=== PATIENT | female | born 1950 | race Caucasian/White ===

== ENCOUNTER → 2018-01-07 | Outpatient (CLI) | payer MEDICARE, BC ==
--- NOTE | 2018-01-08 10:16 | MM ---
Reason for exam: screening (asymptomatic). Last mammogram was performed 2 years and 5 months ago. History: Patient is postmenopausal. Family history of breast cancer in 2 maternal aunts. Took estrogen for 1 year 8 months. Physical Findings: A clinical breast exam by your physician is recommended on an annual basis and results should be correlated with mammographic findings. MG 3D Screening Mammo W/Cad Bilateral CC and MLO view(s) were taken. Prior study comparison: July 27, 2015, bilateral MG screening mammo w CAD. June 03, 2014, bilateral MG screening mammo w CAD. There are scattered fibroglandular densities. No significant changes when compared with prior studies. ASSESSMENT: Negative, BI-RAD 1 RECOMMENDATION: Routine screening mammogram of both breasts in 1 year.
== END | disposition home or self-care (01) ==
LOC: RADMAMWWP 07:36
PROVIDERS: ATTEND Family Medicine
DX: Z12.31 Encounter for screening mammogram for malignant neoplasm of breast (principal)
CPT/HCPCS: 77063; 77067

== ENCOUNTER → 2018-04-17 | Outpatient (CLI) | payer MEDICARE, BC ==
--- NOTE | 2018-04-17 09:32 | MR ---
EXAMINATION TYPE: MR shoulder LT wo con DATE OF EXAM: 04/17/2018 COMPARISON: None HISTORY: 67-year-old female Left shoulder pain TECHNIQUE: Multiplanar, multisequence imaging of the left shoulder is performed without contrast. FINDINGS: There is linear abnormal signal within the intracapsular portion of the long head biceps tendon. Mild tenosynovial fluid along the bicipital groove. Heterogeneous signal of the subscapularis tendon which remains intact. Moderate degenerative joint space narrowing and marginal spurring at the acromioclavicular joint. Inf erior spurring contacts the underlying myotendinous junction of the supraspinatus. There is a bursal sided tear of the far anterior supraspinatus tendon measuring 6 x 6 mm at the footp rint. Additional heterogeneous signal of the supraspinatus tendon. No full-thickness extension seen. There is additional articular sided tear at the footprint of the anterior infraspinatus tendon measur ing 7 x 8 mm. This tear closely approaches the bursal surface, coronal series 301 image 16. No defini te full-thickness extension. Trace fluid within the subacromial/subdeltoid bursal. No atrophy of the rotator cuff musculature. There is mild irregular cartilage loss along the glenoid articular surface. There is a small joint ef fusion. Fluid signal extends into the superior labrum. No paralabral cyst. No Hill-Sachs deformity or os acromiale. No suspicious bone marrow replacement. IMPRESSION: 1. Diffuse rotator cuff tendinosis with a small 6 x 6 mm bursal sided tear of the far anterior supras pinatus tendon at the footprint. 2. Additional 7 x 8 mm articular sided tear at the footprint of the anterior infraspinatus tendon. Th is is a deep tear that closely approaches the bursal surface. No definite full-thickness extension. 3. Focal tendinosis versus interstitial tear within the intracapsular portion of the long head biceps tendon. 4. Moderate AC joint OA with slight impingement onto the underlying cuff. Mild subacromial/subdeltoid bursitis. 5. Small SLAP tear and mild degenerative changes in the glenohumeral joint.
== END | disposition home or self-care (01) ==
LOC: RADMRIMAIN 05:59
PROVIDERS: ATTEND Orthopaedic Surgery
DX: M19.012 Primary osteoarthritis, left shoulder (principal); M75.102 Unspecified rotator cuff tear or rupture of left shoulder, not specified as traumatic; S46.912A Strain of unspecified muscle, fascia and tendon at shoulder and upper arm level, left arm, initial encounter; M67.814 Other specified disorders of tendon, left shoulder

== ENCOUNTER 2018-05-29 07:32 | Day surgery (SDC) | payer MEDICARE, BC ==
[2018-05-22 14:09] VITALS: BMI 30.2
--- NOTE | 2018-05-28 13:12 | HP ---
HISTORY AND PHYSICAL Surgery is 05/29/2018. Kiana Lyn is a 67-year-old patient seen with progressive left shoulder pain. Treatment options were discussed with her. She elected to proceed with arthroscopy. Consent regarding the procedure was obtained, clearance was provided by Dr. Sampson's office. PAST MEDICAL HISTORY: Past medical history is asthma. PAST SURGICAL HISTORY: Past surgical history is left knee arthroscopy, left total knee arthroplasty. DAILY MEDICATIONS: 1. Gabapentin. 2. Vitamins. ALLERGIES: Allergies are PENICILLIN and CODEINE. SOCIAL HISTORY: Patient denies current tobacco use. PHYSICAL EXAMINATION: Physical evaluation left shoulder: Flexion is 90 degrees, abduction 60 degrees, external rotation is 30 degrees with weakness. Tenderness along the anterior acromion rotator cuff insertion site. Impingement positive 80 degrees. Drop-arm sign positive. Distal neurovascular exam intact. Radiographs which were obtained of the left shoulder revealed cystic changes of the tuberosity. An MRI left shoulder revealed rotator cuff tear, partial biceps tendon tear, acromioclavicular osteoarthritis and labral tear. IMPRESSION: Left shoulder impingement with rotator cuff tear, labral tear, and acromioclavicular joint osteoarthritis. PLAN: Left shoulder arthroscopy with subacromial decompression, probable arthroscopic rotator cuff repair, probable Kavitha procedure and debridement. MMODL / IJN: [id number] /
[~2018-05-29 07:32] MED LIST: HYDROmorphone 1 MG/ML 1 ML SYRINGE IVP PRN; LACTATED RINGERS 1,000 ML IV SCH; MORPHINE SULFATE 2 MG/ML SYRINGE IV PRN; ONDANSETRON 4 MG/2 ML VIAL IVP PRN; ceFAZolin IN SWFI 2 GM/20 ML SYRINGE IVP ONE
[2018-05-29] MEDS ORDERED: LIDOCAINE 1% 20 ML VIAL (10MG/ML) FOR IV START INTRADERMA ONE (08:15)
[2018-05-29] MEDS ORDERED: MIDAZOLAM 2 MG/2 ML VIAL ONE ×2 (08:16→09:18)
[2018-05-29] MEDS ORDERED: DEXAMETHASONE SOD PHOS (MDV) 100 MG/10 ML VIAL IV ONE (08:18)
[2018-05-29] MEDS ORDERED: MIDAZOLAM 2 MG/2 ML VIAL IV ONE (08:36)
--- NOTE | 2018-05-29 08:59 | P.ONQ ---
Anesthesiology Proc Note - PNB - Peripheral Nerve Block Performed Left Interscalene Single Time Out Performed: Yes Procedure Start Time: 08:37 Procedure Stop Time: :44 Indication: Acute Post-Operative Pain, Requested by physician (Dr Frost) Sedation Type: Sedate with meaningful contact maintained Preparation: Sterile Prep Position: Supine Catheter: None Needle Types: Touhy Needle Size: 50mm (2") Needle Gauge: 20 Technique: Ultrasound (Image saved) Injectate: 0.5% Ropivacaine (see comment for volume) (30 mls) Blood Aspirated: No Pain Paresthesia on Injection Noted: No Resistance on Injection: Normal Events: Uneventful and Well Tolerated
[2018-05-29] MEDS ORDERED: GLYCOPYRROLATE 0.2 MG/ML 2 ML VIAL ONE (09:18)
[2018-05-29] MEDS ORDERED: LIDOCAINE 1% INJ 10MG/ML (20 ML MDV) ONE (09:18)
[2018-05-29] MEDS ORDERED: ROPIVACAINE 5 MG/ML 30 ML VIAL ONE (09:18)
[2018-05-29] MEDS ORDERED: ROCURONIUM BROMIDE 10 MG/ML 10 ML VIAL IV ONE (09:18)
[2018-05-29] MEDS ORDERED: PROPOFOL 10 MG/ML 20 ML VIAL IV ONE (09:18)
[2018-05-29] MEDS ORDERED: ePHEDrine SULFATE/0.9% NACL/PF 50 MG/5 ML SYRINGE IV ONE (09:18)
[2018-05-29] MEDS ORDERED: fentaNYL (PF) 50 MCG/ML 2 ML AMP ONE (09:18)
[2018-05-29] MEDS ORDERED: NEOSTIGMINE 1 MG/ML 10 ML VIAL ONE (09:18)
[2018-05-29] MEDS ORDERED: SODIUM CHLORIDE 0.9% 100 ML with CLINDAMYCIN 600 MG IV ONE ×2 (09:25)
[2018-05-29] MEDS ORDERED: LACTATED RINGERS 1,000 ML IV ONE (10:14)
[2018-05-29] MEDS ORDERED: IV FLUID CONTINUATION 1,000 ML IV ONE (11:08)
--- NOTE | 2018-05-29 11:10 | P.OP ---
Date of Procedure: 05/29/18 Preoperative Diagnosis: Left shoulder impingement Postoperative Diagnosis: 1. Left shoulder rotator cuff tear 2. Left shoulder impingement 3. Left shoulder acromioclavicular joint osteoarthritis 4. Left shoulder partial long head biceps tendon tear 5. Left shoulder labral tear Procedure(s) Performed: 1. Left shoulder arthroscopic rotator cuff repair 2. Left shoulder arthroscopic subacromial decompression 3. Left shoulder arthroscopic Kavitha procedure 4. Left shoulder arthroscopic biceps tenotomy 5. Left shoulder arthroscopic debridement labral tear Implants: 2Arthrex 4.75 swivel lock anchors 2Arthrex 5.5 swivel lock anchors Anesthesia: GETA, regional (Interscalene block) Surgeon: Jasson Frost Information Systems Security Developer #1: Boaz Pittman Estimated Blood Loss (ml): 8 Pathology: none sent Condition: stable Disposition: PACU Indications for Procedure: 67-year-old patient seen with progressive left shoulder pain. After treatment options were discussed, she elected to proceed with arthroscopy. Operative Findings: see description of procedure Description of Procedure: Patient underwent an interscalene block by department of anesthesia for postoperative pain management. The patient was then taken to the operative suite. The patient underwent a general anesthetic by the department of anesthesia. The patient was placed into a lateral position and secured. There was appropriate padding of the bony prominence. Left shoulder was then prepped and draped in normal sterile orthopedic fashion. We placed the extremity in 10 pounds of longitudinal traction. A posterior incision was now made for a posterior working portal site. The trocar and cannula were inserted into the glenohumeral joint. Arthroscopy was initiated. Spinal needle was now inserted anteriorly, to ascertain the anterior working portal site. An incision was now made in that area, a trocar was inserted followed by a probe. It was partial tearing long head biceps tendon. There was hyperemia long head biceps tendon. There was a superior and anterior labral tear present. There were grade 1/2 chondromalacia changes of the superior portion glenoid fossa with no osteochondral tears present. The remaining labrum was quite diminutive but no tears were present. I couldn't visualize a full-thickness rotator cuff tear from glenohumeral side. I performed an arthroscopic biceps tenotomy. I debrided that labral tear getting on a stable tissue. The residual diminutive labrum remained stable. Instruments now removed from the glenohumeral joint. Utilizing the posterior working portal site, the trocar and cannula were inserted into the subacromial space. Arthroscopy initiated. I made an incision 2 fingerbreadths lateral to the acromion. I introduced my trocar followed by my ArthroCare ablator. I now began ablating thick subacromial bursal tissue, which exposed the undersurface of the anterior acromion. There was diminished subacromial space. There was a very prominent anterior acromion. A motorized bur was introduced and a subacromial decompression was performed. I also excised some osteophytes off the inferior aspect of the distal clavicle. The AC joint was visualized and noted to be fairly arthritic. The motorized bur was introduced in the anterior portal site and a Kavitha procedure was performed without difficulty, decompressing the AC joint nicely. I turned my attention to the rotator cuff. There was a 2 cm rotator cuff tear. I debrided the margins getting down to stable tendon tissue. The defect now measured a little over 2.5 cm with good stable tissue. I introduced my motorized bur and abraded the footprint area, getting some petechial bleeding. I now made an accessory portal site off the lateral aspect of the acromion. I punched 2 holes medial for medial row fixation with the assistance of Trip GUERRERO carefully tapping the punch with a mallet as I held the punch and the camera. I now introduced both anchors into the pre-punched holes and Trip GUERRERO tapped them with the mallet as I held anchors and the camera. Trip GUERRERO now screwed the anchors in place a while I held the anchor guide and camera. All 8 limbs of suture were now passed through good bites of rotator cuff tendon. I now punched 2 holes for lateral row fixation again I held the punch and camera while Trip GUERRERO used a mallet to tap in the punch. We now passed sutures through both anchors and individually I introduced the anchors into the pre- punch holes I held the anchor guide in position with one hand holding the camera with the other hand while Trip GUERRERO tensioned the sutures and screwed in the anchors one at a time. All residual suture limbs were now clipped. We had good compression of the tendon along the entire footprint. I injected 1 mL Renue intra-articular Instruments now removed from the portal sites. All portal sites were approximated with nylon suture. Sterile dressings were applied followed by a shoulder immobilizer. Boaz GUERRERO assisted in this complex case. The patient was awakened, transferred to a bed, and taken to recovery in stable condition.
[2018-05-29 11:26] VITALS: TEMP 96.8
[2018-05-29 12:06] VITALS: BP 108/70; PULSE 78; RESP 18
== END 2018-05-29 13:02 | disposition home or self-care (01) ==
LOC: OR 07:32
PROVIDERS: ATTEND Orthopaedic Surgery
DX: M75.102 Unspecified rotator cuff tear or rupture of left shoulder, not specified as traumatic (principal); M75.42 Impingement syndrome of left shoulder; M19.012 Primary osteoarthritis, left shoulder; S46.112A Strain of muscle, fascia and tendon of long head of biceps, left arm, initial encounter; S43.432A Superior glenoid labrum lesion of left shoulder, initial encounter; X58.XXXA Exposure to other specified factors, initial encounter; M94.212 Chondromalacia, left shoulder; M25.712 Osteophyte, left shoulder; J45.909 Unspecified asthma, uncomplicated; Z79.899 Other long term (current) drug therapy; Z87.891 Personal history of nicotine dependence; Z93.2 Ileostomy status; Z79.82 Long term (current) use of aspirin; Z79.891 Long term (current) use of opiate analgesic; Z88.5 Allergy status to narcotic agent; Z88.0 Allergy status to penicillin
CPT/HCPCS: 29826; 29827; 29824; 64415; C1713 ×2; C1894; C1765; J2250; J2710; J2405; J2001; J3010; J1100; J2795; J2704

== ENCOUNTER → 2018-10-02 | Outpatient (CLI) | payer MEDICARE, BC ==
--- NOTE | 2018-10-02 09:00 | MR ---
EXAMINATION TYPE: MR shoulder LT wo con DATE OF EXAM: 10/02/2018 COMPARISON: MRI of the left shoulder dated 04/17/2018 and outside left shoulder radiographs dated 10/01. HISTORY: Left shoulder pain. Prior surgery in May 2018. TECHNIQUE: Multiplanar, multisequence imaging of the left shoulder is performed without contrast. FINDINGS: Rotator Cuff: There has been interval rotator cuff surgery with postsurgical changes and 4 humeral he ad anchors in place. There is a new 4 mm intrasubstance tear of the insertional fibers of the suprasp inatus there is alteration of the intrinsic signal of the insertional fibers representing tendinopath y. Bursal surface fluid is seen within the subacromial/subdeltoid bursa. This is overall small in vol ume. No discrete tear is seen of the infraspinatus, teres minor nor subscapularis. There does remain heter ogenous signal of the insertional fibers of the subscapularis as seen on the prior. Acromioclavicular Joint: There is moderate acromioclavicular arthropathy with capsular hypertrophy an d small marginal osteophytes. No internal impingement of the supraspinatus is seen. Glenohumeral Joint: Joint space is maintained. Labrum: There is global labral degeneration without discrete displaced tear on this nonarthrographic examination. Biceps Tendon: There is a new split tear of the intra-articular and extra-articular portion of the bi ceps tendon with attenuation of the intra-articular portion of the long head of the biceps. The bicep s tendon remains within placed in the bicipital groove. Bone marrow signal: No focal abnormal marrow signal is appreciated. IMPRESSION: 1. Postsurgical change after rotator cuff repair. There is a 4 mm intrasubstance tear of the insertio nal fibers of the supraspinatus and mild supraspinatus and infraspinatus tendinopathy. 2. New split tear of the intra and extra articular portion of the biceps tendon without displacement. 3. Small amount of fluid in the subcoracoid/subdeltoid bursa that may relate to bursitis, overall thi s is increased from the prior although remains small volume. 4. Global labral degeneration, redemonstration of moderate acromioclavicular arthropathy without inte rnal impingement, and mild chondrosis.
== END | disposition home or self-care (01) ==
LOC: RADMRIMAIN 06:09
PROVIDERS: ATTEND Orthopaedic Surgery
DX: M75.102 Unspecified rotator cuff tear or rupture of left shoulder, not specified as traumatic (principal); M19.012 Primary osteoarthritis, left shoulder; S46.212A Strain of muscle, fascia and tendon of other parts of biceps, left arm, initial encounter; Z98.890 Other specified postprocedural states

== ENCOUNTER → 2019-02-06 | Outpatient (CLI) | payer MEDICARE, BC ==
--- NOTE | 2019-02-11 08:40 | MM ---
Reason for exam: screening (asymptomatic). Last mammogram was performed 1 year and 1 month ago. History: Patient is postmenopausal. Family history of breast cancer in 2 maternal aunts. Took estrogen for 1 year 8 months. Physical Findings: A clinical breast exam by your physician is recommended on an annual basis and results should be correlated with mammographic findings. MG Screening Mammo w CAD Bilateral CC and MLO view(s) were taken. Prior study comparison: January 07, 2018, bilateral MG 3d screening mammo w/cad. July 27, 2015, bilateral MG screening mammo w CAD. There are scattered fibroglandular densities. No significant changes when compared with prior studies. ASSESSMENT: Benign, BI-RAD 2 RECOMMENDATION: Routine screening mammogram of both breasts in 1 year.
== END | disposition home or self-care (01) ==
LOC: RADMAMWWP 09:57
PROVIDERS: ATTEND Family Medicine
DX: Z12.31 Encounter for screening mammogram for malignant neoplasm of breast (principal)
CPT/HCPCS: 77067

== ENCOUNTER 2019-05-26 12:56 | Emergency (ER) | payer MEDICARE, BC ==
[2019-05-26] MEDS ORDERED: SODIUM CHLORIDE 0.9% 1,000 ML IV STA ×2 (13:49)
--- NOTE | 2019-05-26 13:51 | ED ---
SOB HPI - General Chief Complaint: Shortness of Breath Stated Complaint: crohns, poss bloodclot, near syncope Time Seen by Provider: 05/26/19 13:33 Source: patient, RN notes reviewed, old records reviewed Mode of arrival: ambulatory Limitations: no limitations - History of Present Illness Initial Comments: This is a 68-year-old female the ER for evaluation patient does say for evaluation regards to pain left-sided chest pain left-sided abdominal pain left- sided rib pain. Patient has recent syncopal episode 2 days ago. History of Crohn's disease. No recent travel history no sick contacts. Patient presented today for severe pain not feeling well pain extending all the way down the left abdominal area. MD Complaint: shortness of breath, cough -: days(s) Radiation: back, left arm Severity: moderate Severity scale (1-10): 6 Quality: aching, sharp Consistency: constant Improves With: nothing Worsens With: nothing Context: other (Recent syncopal event) Associated Symptoms: chest pain - Related Data Home Medications Medication Instructions Recorded Confirmed Aspirin [Adult Low Dose Aspirin EC] 81 mg PO HS 01/14/16 05/26/19 Ergocalciferol [Vitamin D2 50,000 unit PO SA 01/14/16 05/26/19 (DRISDOL)] Ondansetron Odt [Zofran ODT] 4 mg PO QID PRN 05/26/19 05/26/19 Allergies Allergy/AdvReac Type Severity Reaction Status Date / Time codeine Allergy Severe Swelling Verified 05/26/19 13:44 Penicillins Allergy Severe Swelling Verified 05/26/19 13:44 hydromorphone HCl AdvReac Hallucinati Verified 05/26/19 13:44 [From Dilaudid] ons Review of Systems ROS Statement: Those systems with pertinent positive or pertinent negative responses have been documented in the HPI. ROS Other: All systems not noted in ROS Statement are negative. Past Medical History Past Medical History: Asthma, COPD, Deep Vein Thrombosis (DVT), Pneumonia, Pulmonary Embolus (PE) Additional Past Medical History / Comment(s): CROHNS WITH OSTOMY FOR 18 YEARS- small area of raw skin around ostomy, hx DVT and PE after Ileosotomy surgery, hx migraines, hx ulcer, hx anemia, hx pneumonia multiple times, last 3 yrs ago. History of Any Multi-Drug Resistant Organisms: None Reported Past Surgical History: Appendectomy, Back Surgery, Hysterectomy, Orthopedic Surgery Additional Past Surgical History / Comment(s): Ileostomy surgery, neuroma removed from bilateral feet, left wrist surgery, sinus surgery, bilateral cataracts, 01-18-16 REVISION OF ILEOSTOMY. Past Anesthesia/Blood Transfusion Reactions: Motion Sickness Additional Past Anesthesia/Blood Transfusion Reaction / Comment(s): Difficulty waking up from anesthesia. Past Psychological History: No Psychological Hx Reported Smoking Status: Former smoker Past Alcohol Use History: Occasional Past Drug Use History: None Reported - Past Family History Mother Family Medical History: No Reported History Father Family Medical History: Diabetes Mellitus General Exam Limitations: no limitations General appearance: alert, in no apparent distress Head exam: Present: atraumatic, normocephalic, normal inspection Eye exam: Present: normal appearance, EOMI. Absent: scleral icterus, conjunctival injection, periorbital swelling ENT exam: Present: normal exam, mucous membranes moist Neck exam: Present: normal inspection. Absent: tenderness, meningismus, lymphadenopathy Respiratory exam: Present: normal lung sounds bilaterally. Absent: respiratory distress, wheezes, rales, rhonchi, stridor Cardiovascular Exam: Present: regular rate, normal rhythm, normal heart sounds. Absent: systolic murmur, diastolic murmur, rubs, gallop, clicks GI/Abdominal exam: Present: soft, normal bowel sounds. Absent: distended, tenderness, guarding, rebound, rigid Extremities exam: Present: normal inspection, full ROM, normal capillary refill. Absent: tenderness, pedal edema, joint swelling, calf tenderness Back exam: Present: normal inspection Neurological exam: Present: alert, oriented X3, CN II-XII intact Psychiatric exam: Present: normal affect, normal mood Skin exam: Present: warm, dry, intact, normal color. Absent: rash Course Vital Signs 05/26/19 05/26/19 12:58 15:52 Temperature 97.9 F Pulse Rate 80 82 Respiratory 20 16 Rate Blood Pressure 113/80 120/68 O2 Sat by Pulse 98 95 Oximetry - Reevaluation(s) Reevaluation #1: 05/26/19 16:36 Medical records reviewed Reevaluation #2: 05/26/19 16:36 Significant findings for patient's pain or syncope found here in the ER. Pain is well-controlled patient's in no distress vital signs normal and stable Medical Decision Making - Medical Decision Making 60 female the ER for evaluation patient presents today for evaluation regarding pain abdominal pain left flank pain left-sided rib pain and left lower quadrant abdominal pain, no acute cause for patient's pain. As well mild pancreatitis with no pain over epigastric area, patient does admit to recent syncope and fall but no traumatic injury from the fall and no cause of syncope found here in the ER. Patient be discharged - Lab Data Result diagrams: 05/26/19 14:07 05/26/19 14:07 Lab Results 05/26/19 05/26/19 05/26/19 Range/Units 14:07 14:07 14:07 WBC 9.2 (3.8-10.6) k/uL RBC 5.58 H (3.80-5.40) m/uL Hgb 17.1 H (11.4-16.0) gm/dL Hct 49.9 H (34.0-46.0) % MCV 89.4 (80.0-100.0) fL MCH 30.7 (25.0-35.0) pg MCHC 34.3 (31.0-37.0) g/dL RDW 12.8 (11.5-15.5) % Plt Count 304 (150-450) k/uL Neutrophils % 69 % Lymphocytes % 22 % Monocytes % 6 % Eosinophils % 1 % Basophils % 1 % Neutrophils # 6.3 (1.3-7.7) k/uL Lymphocytes # 2.0 (1.0-4.8) k/uL Monocytes # 0.6 (0-1.0) k/uL Eosinophils # 0.1 (0-0.7) k/uL Basophils # 0.1 (0-0.2) k/uL PT (9.0-12.0) sec INR (<1.2) APTT (22.0-30.0) sec D-Dimer (<0.60) mg/L FEU Sodium 137 (137-145) mmol/L Potassium 4.6 (3.5-5.1) mmol/L Chloride 107 (98-107) mmol/L Carbon Dioxide 15 L (22-30) mmol/L Anion Gap 15 mmol/L BUN 33 H (7-17) mg/dL Creatinine 1.35 H (0.52-1.04) mg/dL Est GFR (CKD-EPI)AfAm 47 (>60 ml/min/1.73 sqM) Est GFR (CKD-EPI)NonAf 41 (>60 ml/min/1.73 sqM) Glucose 97 (74-99) mg/dL Calcium 10.4 H (8.4-10.2) mg/dL Phosphorus 3.8 (2.5-4.5) mg/dL Magnesium 2.0 (1.6-2.3) mg/dL Total Bilirubin 1.2 (0.2-1.3) mg/dL AST 39 H (14-36) U/L ALT 25 (9-52) U/L Alkaline Phosphatase 104 (38-126) U/L Troponin I (0.000-0.034) ng/mL NT-Pro-B Natriuret Pep 51 pg/mL Total Protein 8.3 H (6.3-8.2) g/dL Albumin 5.0 (3.5-5.0) g/dL Lipase (23-300) U/L 05/26/19 05/26/19 05/26/19 Range/Units 14:07 14:07 14:07 WBC (3.8-10.6) k/uL RBC (3.80-5.40) m/uL Hgb (11.4-16.0) gm/dL Hct (34.0-46.0) % MCV (80.0-100.0) fL MCH (25.0-35.0) pg MCHC (31.0-37.0) g/dL RDW (11.5-15.5) % Plt Count (150-450) k/uL Neutrophils % % Lymphocytes % % Monocytes % % Eosinophils % % Basophils % % Neutrophils # (1.3-7.7) k/uL Lymphocytes # (1.0-4.8) k/uL Monocytes # (0-1.0) k/uL Eosinophils # (0-0.7) k/uL Basophils # (0-0.2) k/uL PT 9.9 (9.0-12.0) sec INR 0.9 (<1.2) APTT 27.4 (22.0-30.0) sec D-Dimer 0.66 H (<0.60) mg/L FEU Sodium (137-145) mmol/L Potassium (3.5-5.1) mmol/L Chloride (98-107) mmol/L Carbon Dioxide (22-30) mmol/L Anion Gap mmol/L BUN (7-17) mg/dL Creatinine (0.52-1.04) mg/dL Est GFR (CKD-EPI)AfAm (>60 ml/min/1.73 sqM) Est GFR (CKD-EPI)NonAf (>60 ml/min/1.73 sqM) Glucose (74-99) mg/dL Calcium (8.4-10.2) mg/dL Phosphorus (2.5-4.5) mg/dL Magnesium (1.6-2.3) mg/dL Total Bilirubin (0.2-1.3) mg/dL AST (14-36) U/L ALT (9-52) U/L Alkaline Phosphatase (38-126) U/L Troponin I <0.012 (0.000-0.034) ng/mL NT-Pro-B Natriuret Pep pg/mL Total Protein (6.3-8.2) g/dL Albumin (3.5-5.0) g/dL Lipase 362 H (23-300) U/L - EKG Data -: EKG Interpreted by Me (EKG shows sinus rhythm rate 95, WA 1:30, QRS 84, QTC 445) - Radiology Data Radiology results: report reviewed (CTA chest CT abdomen pelvis negative for acute disease), image reviewed Disposition Clinical Impression: Abdominal pain, Syncope, Rib pain on left side Disposition: ADMITTED IP TO THIS HOSP Condition: Fair Instructions (If sedation given, give patient instructions): Abdominal Pain (ED), Chest Pain (ED) Is patient prescribed a controlled substance at d/c from ED?: No Referrals: Beba Sampson DO [Primary Care Provider] - 1-2 days
[2019-05-26 14:23] LABS: Basophils # (A) 0.1 k/uL (0-0.2); Basophils % (A) 1 %; Eosinophils # (A) 0.1 k/uL (0-0.7); Eosinophils % (A) 1 %; HCT 49.9 % (34.0-46.0); HGB 17.1 gm/dL (11.4-16.0); Lymphocytes % (A) 22 %; MCH 30.7 pg (25.0-35.0); MCHC 34.3 g/dL (31.0-37.0); MCV 89.4 fL (80.0-100.0); Mean Platelet Volume 7.2; Monocytes # (A) 0.6 k/uL (0-1.0); Monocytes % (A) 6 %; Neutrophils # (A) 6.3 k/uL (1.3-7.7); Neutrophils % (A) 69 %; Platelet Count 304 k/uL (150-450); RBC 5.58 m/uL (3.80-5.40); RDW 12.8 % (11.5-15.5); WBC 9.2 k/uL (3.8-10.6)
[2019-05-26 14:35] LABS: Calcium 10.4 mg/dL (8.4-10.2); Phosphorus 3.8 mg/dL (2.5-4.5); Potassium 4.6 mmol/L (3.5-5.1); Total Bilirubin 1.2 mg/dL (0.2-1.3); Total Protein 8.3 g/dL (6.3-8.2)
[2019-05-26 14:39] LABS: INR 0.9 (<1.2); Partial Thromboplastin Time 27.4 sec (22.0-30.0); Prothrombin Time 9.9 sec (9.0-12.0)
[2019-05-26 14:49] LABS: D-Dimer 0.66 mg/L FEU (<0.60)
--- NOTE | 2019-05-26 15:25 | CT ---
EXAMINATION TYPE: CT angio chest DATE OF EXAM: 05/26/2019 COMPARISON: NONE HISTORY: Chest discomfort with shortness of breath CT DLP: 366.3 mGycm. Automated Exposure Control for Dose Reduction was Utilized. CONTRAST: CTA scan of the thorax is performed with IV Contrast, patient injected with 80 mL of Isovue 370, pulm onary embolism protocol. MIP Images are created on CT scanner and reviewed. FINDINGS: LUNGS: Bibasilar linear scarring and/or atelectasis most prominent near the diaphragms. No pleural ef fusion or pneumothorax is seen bilaterally. No suspicious nodules or masses. Some respiratory motion artifact degradation makes evaluation for subcentimeter nodules suboptimal. No suspicious focal conso lidation. MEDIASTINUM: There is satisfactory enhancement of the pulmonary artery and its branches, there is no CT evidence for pulmonary embolism. Satisfactory enhancement of the aorta without dissection or aneu rysm. There are no greater than 1 cm hilar or mediastinal lymph nodes. No cardiomegaly or pericardi al effusion is seen. Somewhat small size thyroid gland. OTHER: Please refer to same day CT abdomen pelvis report for complete details on the upper lungs. Exa ggerated thoracic kyphosis with mild multilevel spurring. IMPRESSION: No CT evidence for acute pulmonary embolism. No suspicious acute pulmonary process.
--- NOTE | 2019-05-26 15:29 | CT ---
EXAMINATION TYPE: CT abdomen pelvis w con DATE OF EXAM: 05/26/2019 HISTORY: generalized pain with vomiting and weakness CT DLP: 1029.9mGycm Automated Exposure Control for Dose Reduction was Utilized. CONTRAST: CT scan of the abdomen and pelvis is performed without oral but with IV Contrast, patient injected wi th 80 mL of Isovue 300. COMPARISON: CT abdomen and pelvis May 10, 2015 FINDINGS: LUNG BASES: Please refer to same day CTA chest report for complete details. LIVER/GB: No significant abnormality is appreciated. PANCREAS: No significant abnormality is seen. SPLEEN: No significant abnormality is seen. ADRENALS: No significant abnormality is seen. KIDNEYS: There is simple appearing 2.0 cm cyst laterally left kidney midpole level axial image 36. BOWEL: Evaluation bowel suboptimal secondary to lack of enteric contrast. No suspicious bowel dilatat ion. Surgical clips at epigastric region are seen. Right mid abdominal ostomy noted. Surgical clips i n pelvis presacral region extending anteriorly superiorly to left of midline. Colon suspected complet jessica surgically absent. UTERUS/ADNEXA: No gross abnormality seen. LYMPH NODES: No greater than 1cm abdominal or pelvic lymph nodes are appreciated. OSSEOUS STRUCTURES: Surgical changes lumbosacral junction. OTHER: No significant additional abnormality is seen. IMPRESSION: No bowel obstruction. No significant acute finding is seen to account for patient's clini guillermina symptoms of pain and vomiting.
[2019-05-26] MEDS ORDERED: MORPHINE SULFATE 4 MG/ML SYRINGE IVP PRN (15:56)
[2019-05-26] MEDS ORDERED: MORPHINE SULFATE 4 MG/ML SYRINGE IVP STA ×2 (15:56→16:35)
[2019-05-26] MEDS ORDERED: ONDANSETRON 4 MG/2 ML VIAL IVP STA (16:35)
[2019-05-26] MEDS ORDERED: PANTOPRAZOLE 40 MG/10 ML VIAL IVP STA (16:35)
--- NOTE | 2019-05-26 17:18 | ED ---
Medical Decision Making - Medical Decision Making 68 female the ER for evaluation, patient requesting physician pain medication prescription for discharge - Lab Data Result diagrams: 05/26/19 14:07 05/26/19 14:07 Lab Results 05/26/19 05/26/19 05/26/19 Range/Units 14:07 14:07 14:07 WBC 9.2 (3.8-10.6) k/uL RBC 5.58 H (3.80-5.40) m/uL Hgb 17.1 H (11.4-16.0) gm/dL Hct 49.9 H (34.0-46.0) % MCV 89.4 (80.0-100.0) fL MCH 30.7 (25.0-35.0) pg MCHC 34.3 (31.0-37.0) g/dL RDW 12.8 (11.5-15.5) % Plt Count 304 (150-450) k/uL Neutrophils % 69 % Lymphocytes % 22 % Monocytes % 6 % Eosinophils % 1 % Basophils % 1 % Neutrophils # 6.3 (1.3-7.7) k/uL Lymphocytes # 2.0 (1.0-4.8) k/uL Monocytes # 0.6 (0-1.0) k/uL Eosinophils # 0.1 (0-0.7) k/uL Basophils # 0.1 (0-0.2) k/uL PT (9.0-12.0) sec INR (<1.2) APTT (22.0-30.0) sec D-Dimer (<0.60) mg/L FEU Sodium 137 (137-145) mmol/L Potassium 4.6 (3.5-5.1) mmol/L Chloride 107 (98-107) mmol/L Carbon Dioxide 15 L (22-30) mmol/L Anion Gap 15 mmol/L BUN 33 H (7-17) mg/dL Creatinine 1.35 H (0.52-1.04) mg/dL Est GFR (CKD-EPI)AfAm 47 (>60 ml/min/1.73 sqM) Est GFR (CKD-EPI)NonAf 41 (>60 ml/min/1.73 sqM) Glucose 97 (74-99) mg/dL Calcium 10.4 H (8.4-10.2) mg/dL Phosphorus 3.8 (2.5-4.5) mg/dL Magnesium 2.0 (1.6-2.3) mg/dL Total Bilirubin 1.2 (0.2-1.3) mg/dL AST 39 H (14-36) U/L ALT 25 (9-52) U/L Alkaline Phosphatase 104 (38-126) U/L Troponin I (0.000-0.034) ng/mL NT-Pro-B Natriuret Pep 51 pg/mL Total Protein 8.3 H (6.3-8.2) g/dL Albumin 5.0 (3.5-5.0) g/dL Lipase (23-300) U/L 05/26/19 05/26/19 05/26/19 Range/Units 14:07 14:07 14:07 WBC (3.8-10.6) k/uL RBC (3.80-5.40) m/uL Hgb (11.4-16.0) gm/dL Hct (34.0-46.0) % MCV (80.0-100.0) fL MCH (25.0-35.0) pg MCHC (31.0-37.0) g/dL RDW (11.5-15.5) % Plt Count (150-450) k/uL Neutrophils % % Lymphocytes % % Monocytes % % Eosinophils % % Basophils % % Neutrophils # (1.3-7.7) k/uL Lymphocytes # (1.0-4.8) k/uL Monocytes # (0-1.0) k/uL Eosinophils # (0-0.7) k/uL Basophils # (0-0.2) k/uL PT 9.9 (9.0-12.0) sec INR 0.9 (<1.2) APTT 27.4 (22.0-30.0) sec D-Dimer 0.66 H (<0.60) mg/L FEU Sodium (137-145) mmol/L Potassium (3.5-5.1) mmol/L Chloride (98-107) mmol/L Carbon Dioxide (22-30) mmol/L Anion Gap mmol/L BUN (7-17) mg/dL Creatinine (0.52-1.04) mg/dL Est GFR (CKD-EPI)AfAm (>60 ml/min/1.73 sqM) Est GFR (CKD-EPI)NonAf (>60 ml/min/1.73 sqM) Glucose (74-99) mg/dL Calcium (8.4-10.2) mg/dL Phosphorus (2.5-4.5) mg/dL Magnesium (1.6-2.3) mg/dL Total Bilirubin (0.2-1.3) mg/dL AST (14-36) U/L ALT (9-52) U/L Alkaline Phosphatase (38-126) U/L Troponin I <0.012 (0.000-0.034) ng/mL NT-Pro-B Natriuret Pep pg/mL Total Protein (6.3-8.2) g/dL Albumin (3.5-5.0) g/dL Lipase 362 H (23-300) U/L Disposition Clinical Impression: Abdominal pain, Syncope, Rib pain on left side Disposition: ADMITTED IP TO THIS HOSP Condition: Fair Instructions (If sedation given, give patient instructions): Chest Pain (ED), Abdominal Pain (ED) Prescriptions: HYDROcodone/APAP 5-325MG [[place] 5-325] 1 tab PO Q6HR PRN #12 tab PRN Reason: Pain Is patient prescribed a controlled substance at d/c from ED?: Yes Referrals: Beba Sampson DO [Primary Care Provider] - 1-2 days Procedures - [place] Protocol (Time Out) Nurse: Ector King
[2019-05-26 17:30] VITALS: BP 120/85; PULSE 77; RESP 19; TEMP 98
== END 2019-05-26 17:15 | disposition other institution (70) ==
LOC: EC 12:56
DX: R55 Syncope and collapse (principal); R10.9 Unspecified abdominal pain; R07.81 Pleurodynia; R05 Cough; R07.9 Chest pain, unspecified; J44.9 Chronic obstructive pulmonary disease, unspecified; Z79.82 Long term (current) use of aspirin; Z88.0 Allergy status to penicillin; Z88.5 Allergy status to narcotic agent; Z90.89 Acquired absence of other organs; Z90.710 Acquired absence of both cervix and uterus; Z86.718 Personal history of other venous thrombosis and embolism; Z86.711 Personal history of pulmonary embolism; Z87.891 Personal history of nicotine dependence; Z87.19 Personal history of other diseases of the digestive system
CPT/HCPCS: 36415; 93005; 85379; 83880; 80053; 83690; 83735; 84100; 84484; 85025; 85610; 85730; 71275; 74177; 99285; 96374; 96375 ×2; 96376; 96361 ×3; J2270; J2405; C9113; Q9967

== ENCOUNTER 2019-06-26 09:42 | Day surgery (SDC) | payer MEDICARE, BC ==
[2019-06-25 08:47] VITALS: BMI 29.5
[~2019-06-26 09:42] MED LIST changes: +HYDROmorphone 0.5 MG/0.5 ML SYRINGE IVP PRN; -HYDROmorphone 1 MG/ML 1 ML SYRINGE IVP PRN; -MORPHINE SULFATE 2 MG/ML SYRINGE IV PRN; -ceFAZolin IN SWFI 2 GM/20 ML SYRINGE IVP ONE
[2019-06-26 09:57] VITALS: TEMP 97.6
[2019-06-26] MEDS ORDERED: LIDOCAINE 1% 20 ML VIAL (10MG/ML) FOR IV START INTRADERMA ONE (10:07)
[2019-06-26] MEDS ORDERED: LIDOCAINE 1% INJ 10MG/ML (20 ML MDV) ONE (10:08)
[2019-06-26] MEDS ORDERED: PROPOFOL 10 MG/ML 20 ML VIAL IV ONE (10:08)
--- NOTE | 2019-06-26 10:20 | P.OP ---
Date of Procedure: 06/26/19 Preoperative Diagnosis: Dysphagia Postoperative Diagnosis: Gastritis Procedure(s) Performed: EGD with biopsy Anesthesia: MAC Surgeon: Chester Huang Estimated Blood Loss (ml): 1 Condition: stable Description of Procedure: Patient is brought operative suite placed in the left lateral decubitus position underwent sedation per department of anesthesia prepped and draped in usual sterile fashion timeout performed correct patient correct procedure correct site was verified. Scope was passed through the oropharynx down the esophagus with ease and under direct visualization. Specimens stomach and the first and second portion of the duodenum was then slowly withdrawn make sure to visualize all portillo. There is no abnormalities within the duodenum. The scope was withdrawn into the stomach which was allowed sufficient time insufflated was retroflexed and no significant hilar hernia was noted. Patient did have gastritis thr oughout the stomach antral biopsies taken to rule out H. pylori. Scope was withdrawn to the GE junction of there is mild inflammation noted distal esophageal biopsies were taken to rule out Quick's esophagitis. Scope was slowly withdrawn through the rest of the esophagus no other abnormalities are noted patient tolerated the procedure well no apparent complications
[2019-06-26] MEDS ORDERED: fentaNYL (PF) 50 MCG/ML 2 ML AMP IVP ONE (10:48)
[2019-06-26 10:55] VITALS: BP 115/76
[2019-06-26 11:07] VITALS: PULSE 62; RESP 15
== END 2019-06-26 11:49 | disposition home or self-care (01) ==
LOC: ORWHC2ENDO 09:42
PROVIDERS: ATTEND Student in an Organized Health Care Education/Training Program
DX: K29.50 Unspecified chronic gastritis without bleeding (principal); K20.9 Esophagitis, unspecified; J44.9 Chronic obstructive pulmonary disease, unspecified; G43.909 Migraine, unspecified, not intractable, without status migrainosus; K50.90 Crohn's disease, unspecified, without complications; K52.3 Indeterminate colitis; M19.90 Unspecified osteoarthritis, unspecified site; D64.9 Anemia, unspecified; Z88.5 Allergy status to narcotic agent; Z88.0 Allergy status to penicillin; Z86.718 Personal history of other venous thrombosis and embolism; Z86.711 Personal history of pulmonary embolism; Z79.82 Long term (current) use of aspirin; Z79.899 Other long term (current) drug therapy; Z93.2 Ileostomy status; Z90.49 Acquired absence of other specified parts of digestive tract; Z82.49 Family history of ischemic heart disease and other diseases of the circulatory system; Z83.3 Family history of diabetes mellitus
CPT/HCPCS: 88305; 43239; J2001; J3010; J2704

== ENCOUNTER → 2019-08-22 | Outpatient (CLI) | payer MEDICARE, BC ==
--- NOTE | 2019-08-22 11:56 | MR ---
EXAMINATION TYPE: MR brain wo con DATE OF EXAM: 08/22/2019 COMPARISON: NONE HISTORY: Snycope TECHNIQUE: T1-weighted sagittal, T2, FLAIR, and diffusion axial, and T2 coronal coronal views of the brain are submitted. FINDINGS: There is no evidence of acute ischemia. Mild generalized degenerative change. Confluent and numerous focal areas of abnormal signal the white matter are nonspecific but most typical remote microvascular disease. There is no mass effect or midline shift. Faint abnormal signal the gabrielle is suggestive of remote microvascular ischemia Craniocervical junction maintained. Sella turcica has a normal appearance. No cerebellopontine angle mass. Nasal septal deviation noted and there is artifact in the region of t he nasal bone with changes of chronic sinusitis. Changes of mild right mastoiditis are noted. IMPRESSION: 1. No acute intracranial process 2. Extensive nonspecific white matter changes most typical remote microvascular ischemia. 3. Faint abnormal signal the gabrielle suggestive of tiny areas of remote ischemia.
== END | disposition home or self-care (01) ==
LOC: RADMRIMAIN 08-06 08:01
PROVIDERS: ATTEND Family Medicine
DX: R90.89 Other abnormal findings on diagnostic imaging of central nervous system (principal); I67.82 Cerebral ischemia
CPT/HCPCS: 70551

== ENCOUNTER → 2020-01-06 | Outpatient (CLI) | payer MEDICARE, BC ==
[~2020-01-06] MED LIST changes: -HYDROmorphone 0.5 MG/0.5 ML SYRINGE IVP PRN; -LACTATED RINGERS 1,000 ML IV SCH; -ONDANSETRON 4 MG/2 ML VIAL IVP PRN; +REGADENOSON 0.4 MG/5 ML SYRINGE IV ONE
--- NOTE | 2020-01-06 12:40 | NM ---
EXAMINATION TYPE: NM stress lexiscan cardiolite DATE OF EXAM: 01/06/2020 COMPARISON: NONE HISTORY: chest pain TECHNIQUE: After the intravenous administration of 9.7 mCi Tc 99m Sestamibi - Cardiolite resting SPE CT images acquired 50 minutes post injection. The patient received 0.4mg Lexiscan, 25.1 mCi Tc 99m Sestamibi - Stress images obtained [address] injection FINDINGS: Review of stress and rest SPECT images demonstrates no distinct perfusion abnormality. Gated analysi s shows normal wall motion with an estimated left ventricular ejection fraction of 58 %. IMPRESSION: No scintigraphic evidence for reversible ischemia.
--- NOTE | 2020-01-06 16:54 | EST ---
EXERCISE STRESS AGE: 69 SEX: F HT: 5'1" WT: 138 PROTOCOL: Lexiscan STAGE: DURATION OF EXERCISE: HEART RATE REST: 63 BLOOD PRESSURE REST: 132/74 MAXIMUM HEART RATE ACHIEVED: 103 MAXIMUM BLOOD PRESSURE: 126/80 85% MPHR: 128 100% MPHR: 157 METS: INDICATIONS: Chest soreness, syncope. CLINICAL INFORMATION: Baseline EKG revealed normal sinus rhythm without significant ST-T changes. With Lexiscan administration, heart rate changed from 63 to 101 beats per minute, blood pressure changed from 132/74 to 117/80, and came back to 120/70. Patient had transient headache. Rare PVCs were noted. There were no EKG changes to indicate ischemia. By EKG criteria, this is considered an unremarkable Lexiscan stress test. The nuclear scan results. which are more pertinent will be reported by the radiologist. BLAS / IVÁN: [id number] /
== END | disposition home or self-care (01) ==
LOC: RADNMMAIN 08:54
PROVIDERS: ATTEND Family Medicine
DX: R55 Syncope and collapse (principal)
CPT/HCPCS: 93017; 78452; A9500; J2785

== ENCOUNTER 2020-04-27 07:55 | Day surgery (SDC) | payer MEDICARE, BC ==
[2020-04-20 12:22] VITALS: BMI 26.4
[~2020-04-27 07:55] MED LIST changes: +ALPRAZolam 0.25 MG TAB PO PRN; +ALPRAZolam 0.5 MG TAB PO PRN; +ASPIRIN 325 MG TAB PO STA; +ATORVASTATIN 80 MG TAB PO STA; +NITROGLYCERIN SL TABS 0.4 MG TAB SUBLINGUAL PRN; -REGADENOSON 0.4 MG/5 ML SYRINGE IV ONE; +SODIUM CHLORIDE 0.9% 1,000 ML in EMPTY BAG 1 BAG IV ONE
[2020-04-27] MEDS ORDERED: SODIUM CHLORIDE 0.9% 1,000 ML IV ONE (08:45)
[2020-04-27] MEDS ORDERED: LIDOCAINE 1% INJ 10MG/ML (20 ML MDV) ONE (08:46)
[2020-04-27] MEDS ORDERED: VERAPAMIL 2.5 MG/ML 2 ML AMP ONE (08:46)
[2020-04-27 08:49] VITALS: RESP 16; TEMP 98.6
[2020-04-27] MEDS ORDERED: fentaNYL (PF) 50 MCG/ML 2 ML AMP ONE (08:59)
[2020-04-27] MEDS ORDERED: fentaNYL (PF) 50 MCG/ML 2 ML AMP IV ONE (09:01)
[2020-04-27] MEDS ORDERED: MIDAZOLAM 2 MG/2 ML VIAL IV ONE (09:01)
[2020-04-27] MEDS ORDERED: HEPARIN SODIUM 1,000 UN/ML (10ML VL) ONE (09:02)
[2020-04-27] MEDS ORDERED: LIDOCAINE 1% INJ 10MG/ML (20 ML MDV) SQ ONE (09:02)
[2020-04-27] MEDS: VERAPAMIL SYRINGE (5 MG/10 ML) INTRAARTER ONE ×2 (09:03→09:20)
[2020-04-27] MEDS ORDERED: HEPARIN SODIUM 1,000 UN/ML (10ML VL) IV ONE (09:11)
[2020-04-27] MEDS ORDERED: IOPAMIDOL-370 125ML BTL INJ ONE (09:20)
[2020-04-27] MEDS ORDERED: RX INFO: IV CONTRAST WAS GIVEN 1 EACH MISC MISCELLANE PRN (09:35)
--- NOTE | 2020-04-27 09:35 | P.CARDCATH ---
Date of Procedure: 04/27/20 Description of Procedure: Procedures performed: Left heart catheterization, bilateral coronary angiography INDICATION: Persistent class III angina despite normal stress test HISTORY: Patient is a pleasant 69-year-old female who has been having off-and-on chest pain over the last 6 months. She had prior workup including normal nuclear stress test and normal echocardiogram while hospitalized a few months ago. She has however been having continued chest pain with exertion which has improved with nitroglycerin. She was evaluated by Dr. Lilly and a heart catheterization was recommended to definitively evaluate for coronary artery disease. CONSENT:I have discussed the risks, benefits and alternative therapies for the above-mentioned procedure and for both sedation/analgesia as well as necessary blood product administration, if indicated, as they pertain to this patient. The patient has indicated understanding and acceptance of the risks and procedures discussed. PROCEDURE: After the risks, benefits and alternatives of the above mentioned procedure explained in detail with the patient, informed consent was obtained. Patient was taken to the catheterization lab and prepped and draped in usual fashion. 1% lidocaine was used to anesthetize the right radial artery. A 6- Jamaican sheath was placed in the right radial artery using modified Seldinger technique. Left coronary angiography was performed with a 5-Jamaican JL 3.5 catheter and right coronary angiography was performed with a 5-Jamaican JR5 catheter in various views. The 5-Jamaican JR 5 catheter was inserted into the left ventricle and pressure measurements were obtained. The right radial sheath was removed and a TR band was placed with hemostasis achieved. The patient tolerated the procedure well. Patient was transported back to the post catheterization holding area in stable condition. Conscious Sedation: Patient was monitored under the direct supervision of vision of myself for conscious sedation using one mg Versed and 25 mcg fentanyl for a total duration of 19 minutes HEMODYNAMICS: Aorta: Blood pressure 98/58, heart rate 70 bpm LV: 95 over 2, LVEDP 5 mmHg SELECTIVE CORONARY ARTERIOGRAPHY: LEFT MAIN: The left main is a large caliber vessel which bifurcates into the LAD and circumflex. There is no significant stenosis. LEFT ANTERIOR DESCENDING CORONARY ARTERY: LAD is a large caliber vessel which wraps around to the apex. There are mild luminal irregularities of the mid LAD with 10-20% stenosis.. LEFT CIRCUMFLEX CORONARY ARTERY: Left circumflex is a small to moderate caliber vessel which gives off a small caliber OM1. RIGHT CORONARY ARTERY: The right coronary artery is a moderate caliber vessel which gives off a PDA and PLV branch and is the dominant vessel. There is no significant stenosis. FINAL IMPRESSION: 1. Relatively normal coronary arteries with only mild luminal irregularities of the mid LAD as described above. PLAN: 1. Aggressive risk factor modification per most recent ACC/AHA guidelines. 2. Follow-up in the office in 1-2 weeks.
[2020-04-27 19:29] VITALS: BP 99/56; PULSE 70
== END 2020-04-27 13:17 | disposition home or self-care (01) ==
LOC: CATHCVL 07:55
PROVIDERS: ATTEND Internal Medicine
DX: I25.110 Atherosclerotic heart disease of native coronary artery with unstable angina pectoris (principal); R07.89 Other chest pain; M79.622 Pain in left upper arm; R07.2 Precordial pain; I49.3 Ventricular premature depolarization; I42.8 Other cardiomyopathies; F17.200 Nicotine dependence, unspecified, uncomplicated; Z79.899 Other long term (current) drug therapy; Z79.51 Long term (current) use of inhaled steroids; Z88.5 Allergy status to narcotic agent; Z88.0 Allergy status to penicillin; Z88.8 Allergy status to other drugs, medicaments and biological substances; Z82.49 Family history of ischemic heart disease and other diseases of the circulatory system
CPT/HCPCS: 93458; C1769 ×2; C1894; J2250; J2001; J3010; J1644; Q9967

== ENCOUNTER → 2020-05-06 | Outpatient (CLI) | payer MEDICARE, BC ==
--- NOTE | 2020-05-06 15:25 | XR ---
EXAMINATION TYPE: XR ankle limited RT DATE OF EXAM: 05/06/2020 COMPARISON: NONE HISTORY: Pain TECHNIQUE: 2 view submitted FINDINGS: Ankle mortise symmetric. Tiny spur off the medial malleolus. There is a large plantar calca joni spur. No acute fracture. No dislocation. Arthropathy within the intertarsal joints noted on the lateral view along the dorsal surface. IMPRESSION: Large plantar calcaneal spur
--- NOTE | 2020-05-06 15:27 | XR ---
EXAMINATION TYPE: XR foot limited RT DATE OF EXAM: 05/06/2020 COMPARISON: NONE HISTORY: Foot swelling TECHNIQUE: 2 view submitted FINDINGS: Arthropathy of the first MTP joint. Diffuse osteopenia. Arthropathy of the tarsometatarsal junction. Large plantar calcaneal spur. IMPRESSION: 1. Arthropathy most marked at the tarsometatarsal junction. The associated with osteoarthritis or gou t. Correlate clinically. 2. Large plantar calcaneal spur.
== END | disposition home or self-care (01) ==
LOC: RADXRMAIN 15:07
PROVIDERS: ATTEND Family Medicine
DX: M19.071 Primary osteoarthritis, right ankle and foot (principal); M77.31 Calcaneal spur, right foot

== ENCOUNTER → 2020-07-05 | Outpatient (CLI) | payer MEDICARE, BC ==
--- NOTE | 2020-07-06 09:36 | MM ---
Reason for exam: screening (asymptomatic). Last mammogram was performed 1 year and 5 months ago. History: Patient is postmenopausal. Family history of breast cancer in 2 maternal aunts. Took estrogen for 1 year 8 months. Physical Findings: A clinical breast exam by your physician is recommended on an annual basis and results should be correlated with mammographic findings. MG 3D Screening Mammo W/Cad Bilateral CC and MLO view(s) were taken. Prior study comparison: February 06, 2019, bilateral MG screening mammo w CAD. January 07, 2018, bilateral MG 3d screening mammo w/cad. No significant changes when compared with prior studies. ASSESSMENT: Benign, BI-RAD 2 RECOMMENDATION: Routine screening mammogram of both breasts in 1 year.
== END | disposition home or self-care (01) ==
LOC: RADMAMWWP 11:00
PROVIDERS: ATTEND Family Medicine
DX: Z12.31 Encounter for screening mammogram for malignant neoplasm of breast (principal)
CPT/HCPCS: 77063; 77067

== ENCOUNTER → 2021-01-28 | Outpatient (CLI) | payer MEDICARE, BC ==
--- NOTE | 2021-01-28 12:28 | XR ---
EXAMINATION TYPE: XR chest 2V DATE OF EXAM: 01/28/2021 COMPARISON: 05/19/2015 TECHNIQUE: PA and lateral views submitted. HISTORY: Cough FINDINGS: The lungs are clear and there is no pneumothorax, or pleural effusion. Curvature of the spine. Hype rinflation compatible COPD. Degenerative changes of the spine. Surgical clips in the abdomen. The lat eral view there subsegmental changes overlying the heart border. IMPRESSION: 1. Correlate for right middle lobe atelectasis or early infiltrate. 2. COPD
== END | disposition home or self-care (01) ==
LOC: RADXRMAIN 11:35
PROVIDERS: ATTEND Nurse Practitioner Family
DX: J44.9 Chronic obstructive pulmonary disease, unspecified (principal)
CPT/HCPCS: 71046

== ENCOUNTER 2021-02-17 | Observation (INO) | payer MEDICARE, BC | END 2021-02-19 13:05 | disposition home or self-care (01) | PROVIDERS: ADMIT Family Medicine | CPT/HCPCS: 96376 ×4; 96361 ×3; 96366 ×2; 96365; 96375; 99285; 36415; 93005; 80053; 80048; 83735 ×2; 84484; 85025; 85610; 85730; 87635; 72050; 73030; 71046; G0378 ×3; L0120; Q0167 ×2; J2270 ×3; J3475; J1885 ×3 ==

== ENCOUNTER → 2021-04-04 | Outpatient (CLI) | payer MEDICARE, BC ==
[2021-04-04 08:46] LABS: Basophils % (A) 1 %; Eosinophils # (A) 0.1 k/uL (0-0.7); Eosinophils % (A) 2 %; HCT 50.7 % (34.0-46.0); HGB 16.2 gm/dL (11.4-16.0); Lymphocytes # (A) 1.2 k/uL (1.0-4.8); Lymphocytes % (A) 15 %; MCH 31.5 pg (25.0-35.0); MCV 98.4 fL (80.0-100.0); Mean Platelet Volume 8.8; Monocytes # (A) 0.4 k/uL (0-1.0); Monocytes % (A) 5 %; Neutrophils % (A) 77 %; Platelet Count 213 k/uL (150-450); RBC 5.15 m/uL (3.80-5.40); RDW 14.1 % (11.5-15.5); WBC 7.9 k/uL (3.8-10.6)
[2021-04-04 08:55] LABS: Appearance,Urine Cloudy (Clear); Bacteria,Urine Many /hpf; Bilirubin,Urine Negative (Negative); Blood,Urine Negative (Negative); Color,Urine Yellow; Glucose,Urine (UA) Negative (Negative); Ketones,Urine Trace (Negative); Leukocyte Esterase,Urine Trace (Negative); Mucus,Urine Few /hpf; Nitrite,Urine Negative (Negative); Protein,Urine Trace (Negative); RBC,Urine 1 /hpf (0-5); Specific Gravity,Urine 1.022 (1.001-1.035); Squamous Epithelial Cell,Urine 62 /hpf (0-4); Urobilinogen,Urine <2.0 mg/dL (<2.0); WBC,Urine 2 /hpf (0-5)
[2021-04-04 08:56] LABS: INR 0.9 (<1.2); Partial Thromboplastin Time 23.4 sec (22.0-30.0); Prothrombin Time 9.7 sec (9.0-12.0)
--- NOTE | 2021-04-04 08:56 | XR ---
EXAMINATION TYPE: XR chest 2V DATE OF EXAM: 04/04/2021 COMPARISON: 02/17/2021 TECHNIQUE: PA and lateral views submitted. HISTORY: Presurgical FINDINGS: The lungs are clear and there is no pneumothorax, pleural effusion, or focal pneumonia. Hyperinflat ion suggests COPD. Arthropathy of the shoulders. No overt failure. Heart size normal. Hypertrophic an d degenerative change of the spine. Atherosclerotic change aorta. IMPRESSION: 1. No acute process. 2. COPD.
[2021-04-04 09:02] LABS: Calcium 10.5 mg/dL (8.4-10.2); Potassium 3.9 mmol/L (3.5-5.1)
== END | disposition home or self-care (01) ==
LOC: LABPAT 07:55
PROVIDERS: ATTEND Orthopaedic Surgery Orthopaedic Surgery of the Spine
DX: Z01.812 Encounter for preprocedural laboratory examination (principal); Z01.818 Encounter for other preprocedural examination; M48.02 Spinal stenosis, cervical region; J44.9 Chronic obstructive pulmonary disease, unspecified
CPT/HCPCS: 36415; 71046; 80048; 81001; 85025; 85610; 85730

== ENCOUNTER 2021-04-20 08:21 | Day surgery (SDC) | payer MEDICARE, BC ==
[2021-04-14 16:03] VITALS: BMI 21.3
[~2021-04-20 08:21] MED LIST changes: -ALPRAZolam 0.25 MG TAB PO PRN; -ALPRAZolam 0.5 MG TAB PO PRN; -ASPIRIN 325 MG TAB PO STA; -ATORVASTATIN 80 MG TAB PO STA; +CLINDAMYCIN 900 MG in DEXTROSE 5% IN WATER 50 ML IVPB PRN; +CLINDAMYCIN IRRIGATION PRN; +LIDOCAINE 1% (10MG/ML) FOR IV START INTRADERMA PRN; -NITROGLYCERIN SL TABS 0.4 MG TAB SUBLINGUAL PRN; +ONDANSETRON 4 MG/2 ML VIAL IVP ONE; -SODIUM CHLORIDE 0.9% 1,000 ML in EMPTY BAG 1 BAG IV ONE; +SODIUM CHLORIDE 0.9% IRRIGATION PRN
[2021-04-20 09:06] LABS: Glucose,Whole Blood 96 mg/dL (75-99)
[2021-04-20] MEDS: LACTATED RINGERS 1,000 ML IV SCH (09:06)
[2021-04-20] MEDS ORDERED: MIDAZOLAM 2 MG/2 ML VIAL ONE (10:42)
[2021-04-20] MEDS ORDERED: DEXAMETHASONE SOD PHOSPHATE 10 MG/ML 1 ML VIAL ONE (10:42)
[2021-04-20] MEDS ORDERED: ROCURONIUM 10 MG/ML (5 ML VIAL) IV ONE (10:42)
[2021-04-20] MEDS ORDERED: GLYCOPYRROLATE 0.2 MG/ML 2 ML VIAL ONE (10:42)
[2021-04-20] MEDS ORDERED: LIDOCAINE 1% INJ 10MG/ML (20 ML MDV) ONE (10:42)
[2021-04-20] MEDS ORDERED: NEOSTIGMINE 1 MG/ML 10 ML VIAL ONE (10:42)
[2021-04-20] MEDS ORDERED: PROPOFOL 10 MG/ML 20 ML VIAL IV ONE (10:42)
[2021-04-20] MEDS ORDERED: fentaNYL (PF) 50 MCG/ML 2 ML AMP ONE (10:42)
[2021-04-20] MEDS ORDERED: .MORPHINE SULFATE (INJ) 10 MG/ML SYRINGE ONE (10:42)
[2021-04-20] MEDS ORDERED: WATER FOR INJECTION, STERILE 10 ML VIAL IV ONE (10:42)
[2021-04-20] MEDS ORDERED: SUCCINYLCHOLINE CHLORIDE 100 MG/5 ML SYR IV ONE (10:42)
[2021-04-20] MEDS ORDERED: ePHEDrine SULFATE/0.9% NACL/PF 50 MG/5 ML SYRINGE IV ONE (10:42)
[2021-04-20] MEDS ORDERED: LIDOCAINE 0.5%-EPI 1:200,000 50 ML VIAL SQ ONE (10:50)
[2021-04-20] MEDS ORDERED: GELATIN SPONGE,ABSORB (LARGE) 1 EACH SPONGE TOPICAL ONE (10:50)
[2021-04-20] MEDS ORDERED: THROMBIN (BOVINE) 5,000 UNIT VIAL TOPICAL ONE (10:50)
[2021-04-20] MEDS ORDERED: ONDANSETRON 4 MG/2 ML VIAL IVP PRN (12:50)
[2021-04-20] MEDS ORDERED: BENZOCAINE/MENTHOL LOZENG 1 EACH LOZENGE MUCOUS MEM PRN (12:50)
[2021-04-20] MEDS ORDERED: HYDROmorphone 0.5 MG/0.5 ML SYRINGE IVP PRN (12:50)
[2021-04-20] MEDS ORDERED: CYCLOBENZAPRINE 5 MG TAB PO PRN (12:50)
[2021-04-20] MEDS ORDERED: SYMBICORT 80-4.5 MCG INHALER INHALATION PRN (12:51)
[2021-04-20] MEDS ORDERED: SUMAtriptan succinate 50 MG TAB PO PRN (12:51)
--- NOTE | 2021-04-20 12:55 | P.OP ---
Date of Procedure: 04/20/21 Preoperative Diagnosis: Cervical stenosis C4 5 C5 6 C6 7, spondylolisthesis C4 5, degenerative disc disease, herniated pulposis C4 5 C5 6 C6 7, upper extremity radiculopathy, upper extremity weakness, neck pain Postoperative Diagnosis: Same Anesthesia: CHIDI MEDEROS Pathology: none sent Condition: stable Disposition: PACU Description of Procedure: BRIEF OPERATIVE NOTE Preoperative Diagnosis:Cervical stenosis C4 5 C5 6 C6 7, spondylolisthesis C4 5, degenerative disc disease, herniated pulposis C4 5 C5 6 C6 7, upper extremity radiculopathy, upper extremity weakness, neck pain Postoperative Diagnosis:Cervical stenosis C4 5 C5 6 C6 7, spondylolisthesis C4 5, degenerative disc disease, herniated pulposis C4 5 C5 6 C6 7, upper extremity radiculopathy, upper extremity weakness, neck pain Procedure: Anterior cervical decompression with discectomy and fusion C4 5 C5 6 C6 7 Placement of interbody graft C4 5 C5 6 C6 7 Application of anterior cervical plate C4 5 6 and 7 Surgeon: Dr. Vasquez Trapper Animal: Jan Ferrera is present throughout the entire the case persistence during positioning, dissection, exposure, visualization, and all crucial elements of the case as well as closure. Anesthesia: General anesthesia Estimated blood loss: Approximately 75 mL Complications: None apparent Components implanted: K2M Kirklin anterior cervical plate system with screws and Vikos interbody allograft bone graft and 1 mL of DBX bone putty Disposition: To recovery room in good stable condition. OPERATIVE INDICATIONS The patient has had long-standing issues in their neck and upper extremities. She is found have significant changes at her cervical spine from C4 to C7 with disc herniation and stenosis which really well with her neck and upper extremity symptoms. The patient has been through conservative treatment. She is not having any having any prolonged benefit despite aggressive conservative care We discussed various treatment options including surgery, and the patient wishes to proceed with surgery We discussed the risk, patient's alternatives and benefits of surgery including but not limited to, risk of bleeding risk of infection, risk of need for further surgery, risk of decreased, loss of motion, muscle function, malunion nonunion, hardware failure, nerve damage, paralysis, heart attack, and . OPERATIVE SUMMARY After discussing all the risks, patient alternatives and benefits at length, the patient elected to proceed with surgical intervention, signed informed consent, and presented for their procedure. The patient was seen and examined in the preoperative holding area and the surgical site was marked. The patient was given antibiotics and brought to the operating room. The patient was positioned on the operating room table in a supine position being careful to pad any bony prominences and pressure points. The patient was sedated and intubated by anesthesia in standard fashion. Once the airway and C- spine were stabilized the patient's arms were padded and tucked at her side, with her shoulders gently taped. The head was placed in a donut pad with the neck in good neutral alignment and position. We were careful to maintain the patient's cervical spine and good neutral alignment and position throughout. The patient was prepped and draped in a normal standard fashion. An appropriate timeout and keystone protocol performed. We were able to proceed with the surgery. The local wound area was infiltrated with local anesthetic. An incision was made transversely approximately 2-1/2 cm over the appropriate levels at C5 6. Dissection was taken down subcutaneously to the level of the platysma which was split in line with its fibers. Dissection was taken with a carotid approach, with the trachea and esophagus medial and the carotid sheath laterally. We dissected down to the anterior surface of the vertebral bodies. Intraoperative x-ray was taken which showed a marker at the appropriate level and C4 5. With the appropriate level positively confirmed, we were able to proceed with discectomy at the appropriate levels. All of the operative levels were exposed appropriately at C4 5 C5 6 and C6 7. The patient had all their twitches back, and there was no evidence of recurrent laryngeal issue. The wound was copiously irrigated and suctioned dry as had been done periodically throughout the case. At the appropriate level/levels, starting at C6 7 and then working the C5 6 and then C4 5 I was able to work similarly. I established an annulotomy with an 11 blade scalpel. A discectomy was performed with a combination of pituitary rongeurs, curettes, a high-speed bur, and Kerrison rongeurs. The posterior longitudinal ligament was taken down as were any posterior osteophytes. This gave good central and bilateral foraminal decompression. There is evidence of significant disc herniation and central and foraminal stenosis which was cleared with the decompression. There is no evidence of any dural tear or leak. The endplates were prepared with a high- speed bur. With the endplates in good parallel position, I was able to size for the appropriate size interbody graft. The wound was irrigated and suctioned dry the graft was prepared and malleted into position. It had good alignment and position with the anterior surface flush with the anterior surface of the vertebral bodies. This was done similarly the appropriate levels at C6 7 and C 5 6 and then C4 5. With the grafts intact, I was able to measure and contour and appropriate sized plate. The plate was positioned at the midline over the appropriate levels from C4 to C7. Screw holes were established with a hand drill and drill guide. Screws were placed in good alignment and position with excellent bony purchase. They were seated under the locking device. The construct was checked and found to be stable. Intraoperative x-ray was taken which showed good alignment and position of the implants at the appropriate levels. There was no evidence of any dural tear or leak. Good hemostasis was maintained. The wound was copiously irrigated and suctioned dry as had been done periodically throughout the case. The platysma was closed with absorbable suture. The subcutaneous tissue was closed. The subcuticular tissue was closed with absorbable suture. The wound was cleaned and dried and dressed appropriately. A soft cervical collar was placed appropriately. The patient was woken up by anesthesia, extubated, transferred back gently to their hospital bed and brought to the recovery room in good stable condition. The patient will be admitted to the hospital for appropriate postoperative care, medical management and monitoring. We will continue to follow them closely about the postoperative course.
[2021-04-20] MEDS: fentaNYL (PF) 50 MCG/ML 2 ML AMP IV PRN ×2 (13:10→13:25)
[2021-04-20] MEDS ORDERED: ONDANSETRON 4 MG/2 ML VIAL IVP ONE (13:22)
[2021-04-20] MEDS: HYDROcodone/APAP 5-325MG 1 EACH TAB PO PRN (14:00)
[2021-04-20] MEDS: SODIUM CHLORIDE 0.9% 1,000 ML IV SCH ×2 (15:26→15:27)
--- NOTE | 2021-04-20 15:40 | XR ---
Cervical spine HISTORY: Needle placement Single lateral view the cervical spine correlated to previous exam 02/18/2021 There is multilevel spondylosis. Anterolisthesis grade 1 C3-4 and C4-5. Loss of disc height is presen t at intervertebral levels especially C4-5, C5-6 and C6-7. Endotracheal tube is in place. There is a needle within the disc space at C4-5. Facet arthropathy changes are present. IMPRESSION: Orthopedic localization
--- NOTE | 2021-04-20 15:54 | XR ---
Limited cervical spine HISTORY: Hardware placement, status post anterior cervical fusion and discectomy Single lateral view the cervical spine correlated prior exam and same dated earlier time Patient is status post anterior cervical fusion and discectomy at C4-C7, intervertebral spacing block s are present. There is anatomic alignment. C7-T1 not well seen. Endotracheal tube remains in place. Facet arthropathy changes are present. IMPRESSION: Orthopedic follow-up.
[2021-04-20] MEDS: BACLOFEN 10 MG TAB PO SCH ×2 (16:35→21:27)
[2021-04-20] MEDS: GABAPENTIN 100 MG CAP PO SCH ×2 (16:35→21:27)
[2021-04-20] MEDS: MORPHINE SULFATE 2 MG/ML SYRINGE IVP PRN (19:54)
[2021-04-20] MEDS: CLINDAMYCIN 900 MG in DEXTROSE 5% IN WATER 50 ML IVPB SCH ×2 (19:54)
[2021-04-20 20:13] VITALS: RESP 16
[2021-04-20] MEDS ORDERED: ASPIRIN 81 MG PO SCH (21:00)
[2021-04-21] MEDS: MORPHINE SULFATE 2 MG/ML SYRINGE IVP PRN ×4 (00:17→12:09)
[2021-04-21] MEDS: SODIUM CHLORIDE 0.9% 1,000 ML IV SCH (03:54)
[2021-04-21] MEDS: CLINDAMYCIN 900 MG in DEXTROSE 5% IN WATER 50 ML IVPB SCH ×2 (03:54)
[2021-04-21] MEDS: LACTATED RINGERS 1,000 ML IV SCH (08:49)
[2021-04-21] MEDS: BACLOFEN 10 MG TAB PO SCH (08:55)
[2021-04-21] MEDS: GABAPENTIN 100 MG CAP PO SCH (08:55)
[2021-04-21] MEDS: HYDROcodone/APAP 5-325MG 1 EACH TAB PO PRN (08:55)
--- NOTE | 2021-04-21 10:34 | P.DS ---
Providers Expected date of discharge: 04/21/21 Attending physician: Rene Vasquez Primary care physician: Russell Alcazar MD Hospital Course: This is a 70-year-old female with known history of long-standing issues in the neck and upper extremities. The patient presented for evaluation as an outpatient. After discussion and consideration patient elects to proceed with cervical fusion. The patient is seen preoperatively by Dr. Vasquez and medically cleared for surgery by their primary care physician. Patient is admitted to [facility] on 04/20/2021 for anterior cervical decompression discectomy and fusion at C4-5, C5-6, C6-7. The procedure is performed without complication or sequelae. The patient is doing well postoperatively. Vital signs are stable on day of discharge. Patient is seen and examined bedside this morning. She states her pain is well controlled. She tolerated his breakfast well. She is voiding without issue. She denies chest pain, shortness breath, and also, vomiting, fevers, chills, numbness or tingling in the upper extremities. No complaints this morning. On day of discharge patient's cervical incision is healing well. No bleeding or drainage through the dressing. Motor and sensory function is intact of the bilateral upper extremities. Calves are soft and nontender to palpation bilaterally. Patient is discharged home in good condition. Opioid start talking form is reviewed and signed. Please see med rec for accurate list of home medications. Plan - Discharge Summary Discharge Rx Participant: Yes New Discharge Prescriptions: New HYDROcodone/APAP 7.5-325MG [[place] 7.5-325] 1 tab PO Q6HR PRN #28 tab PRN Reason: Pain No Action Ergocalciferol [Vitamin D2 (DRISDOL)] 50,000 unit PO SA Aspirin [Adult Low Dose Aspirin EC] 81 mg PO HS SUMAtriptan SUCCINATE [Imitrex] 100 mg PO DAILY PRN PRN Reason: Migraine Headache dronabinoL [Dronabinol] 5 mg PO DAILY Gabapentin [Neurontin] 100 mg PO TID Budesonide/Formoterol Fumarate [Symbicort 80-4.5 Mcg Inhaler] 2 puff INHALATION RT-BID PRN PRN Reason: Shortness Of Breath Baclofen [Lioresal] 10 mg PO TID HYDROcodone/APAP 5-325MG [[place] 5-325] 1 tab PO BID PRN PRN Reason: Pain Discharge Medication List Aspirin [Adult Low Dose Aspirin EC] 81 mg PO HS 01/14/16 [History] Ergocalciferol [Vitamin D2 (DRISDOL)] 50,000 unit PO SA 01/14/16 [History] Budesonide/Formoterol Fumarate [Symbicort 80-4.5 Mcg Inhaler] 2 puff INHALATION RT-BID PRN 02/17/21 [History] SUMAtriptan SUCCINATE [Imitrex] 100 mg PO DAILY PRN 02/17/21 [History] dronabinoL [Dronabinol] 5 mg PO DAILY 02/17/21 [History] Baclofen [Lioresal] 10 mg PO TID 04/14/21 [History] Gabapentin [Neurontin] 100 mg PO TID 04/14/21 [History] HYDROcodone/APAP 5-325MG [[place] 5-325] 1 tab PO BID PRN 04/14/21 [History] HYDROcodone/APAP 7.5-325MG [[place] 7.5-325] 1 tab PO Q6HR PRN #28 tab 04/20/21 [Rx] Follow up Appointment(s)/Referral(s): Rene Vasquez DO [Doctor of Osteopathic Medicine] - 2 Weeks Patient Instructions/Handouts: *Surgery [facility] - ([facility]) Cervical Surgery Disch arge Instructions, Hydrocodone/Acetaminophen (By mouth) Activity/Diet/Wound Care/Special Instructions: Keep site clean. May shower with waterproof Tegaderm intact. Do not soak in a tub. After 72 hours postoperatively, patient May remove dressing and then may shower with area uncovered. Leave glue intact and allow it to fray off on its own. May ambulate as tolerated. Avoid heavy or rigorous activity. No repetitive bending twisting or lifting. No overhead work. Discharge Disposition: HOME SELF-CARE
[2021-04-21 11:57] VITALS: BP 95/65; PULSE 77; TEMP 97.8
[2021-04-23] MEDS ORDERED: ERGOCALCIFEROL 1,250 MCG (50,000 IU) CAPSULE PO SCH (09:00)
== END 2021-04-21 14:07 | disposition home or self-care (01) ==
LOC: OR 08:21 → 5NMEDONC 14:11 → OR 04-21 14:07
PROVIDERS: ATTEND Orthopaedic Surgery Orthopaedic Surgery of the Spine
DX: M43.12 Spondylolisthesis, cervical region (principal); M50.222 Other cervical disc displacement at C5-C6 level; M50.321 Other cervical disc degeneration at C4-C5 level; M50.122 Cervical disc disorder at C5-C6 level with radiculopathy; M48.02 Spinal stenosis, cervical region; F17.210 Nicotine dependence, cigarettes, uncomplicated; Z79.82 Long term (current) use of aspirin; Z79.899 Other long term (current) drug therapy; Z90.710 Acquired absence of both cervix and uterus; Z98.890 Other specified postprocedural states
CPT/HCPCS: 86900; 86901; 86850; 72020; 36415; 20930; 22845; 22551; 22552; J2405; J3010; J2270

== ENCOUNTER → 2021-05-17 | Outpatient (CLI) | payer MEDICARE, BC ==
--- NOTE | 2021-05-17 08:02 | CT ---
EXAMINATION TYPE: CT brain wo con DATE OF EXAM: 05/17/2021 COMPARISON: None HISTORY: migraines, recent fall CT DLP: [address] of the brain was performed. The ventricles, basal cisterns and sulci overlying the cerebral convexities demonstrate mild enlargem ent. There is no evidence for intracranial hemorrhage or sulcal effacement. There is decreased attenuation about the periventricular white matter and deep white matter of both c erebral hemispheres, compatible with chronic small vessel ischemia. Differential diagnosis does inclu de demyelination. No mass effects are seen.No midline shift. Osseous calvarium is intact. If symptoms persist consider MRI. IMPRESSION: 1. Age related atrophic and chronic small vessel ischemic change without acute intracranial process s een at this time.
== END | disposition home or self-care (01) ==
LOC: RADCTMAIN 06:23
PROVIDERS: ATTEND Family Medicine
DX: I67.82 Cerebral ischemia (principal)
CPT/HCPCS: 70450

== ENCOUNTER → 2021-06-16 | Outpatient (CLI) | payer MEDICARE, BC ==
[2021-06-16 11:38] LABS: Potassium 4.3 mmol/L (3.5-5.1)
--- NOTE | 2021-06-16 12:36 | CT ---
EXAMINATION TYPE: CT abdomen pelvis w con DATE OF EXAM: 06/16/2021 HISTORY: Abnormal weight loss CT DLP: 341.8mGycm Automated Exposure Control for Dose Reduction was Utilized. CONTRAST: CT scan of the abdomen and pelvis is performed with oral and with IV Contrast, patient injected with 100 mL of Isovue 300. COMPARISON: CT abdomen and pelvis May 26, 2019 FINDINGS: LUNG BASES: Mild left basilar linear scarring redemonstrated. LIVER/GB: Gallbladder is dilated with distended margins and some dependent small stones and/or gallbl adder sludge axial image 40. No surrounding inflammatory change. Extrahepatic ducts mildly dilated up to 9 mm in the rajinder hepatis coronal image 22 slightly more prominent than prior study with narrowin g towards the ampulla. No filling defect present. PANCREAS: No significant abnormality is seen. 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 ADRENALS: No significant abnormality is seen. KIDNEYS: There is simple appearing 2.3 cm thin-walled cyst laterally left kidney midpole level axial image 32 series 5 which demonstrated. BOWEL: Stomach is moderate to severely distended with air-fluid level extending to the upper pelvis. No suspicious bowel dilatation. Surgical clips at epigastric region just below diaphragm are redemons trated. Persistent right mid abdominal ostomy noted. Surgical clips in pelvis presacral region extend ing anteriorly superiorly to left of midline are redemonstrated. Colon once again suspected completel y surgically absent. UTERUS/ADNEXA: Uterus surgically absent. LYMPH NODES: No greater than 1cm abdominal or pelvic lymph nodes are appreciated. OSSEOUS STRUCTURES: Surgical changes lumbosacral junction are redemonstrated. Facet arthropathy mid t o lower lumbar spine. OTHER: No significant additional abnormality is seen. IMPRESSION: No suspicious new mass or adenopathy to suggest neoplasm. New Mild extrahepatic biliary dilatation. New gallbladder dilatation and intraluminal gallstones without CT evidence for acute cholecystitis. Distended stomach without bowel obstruction.
== END | disposition home or self-care (01) ==
LOC: RADCTMAIN 09:51
PROVIDERS: ATTEND Internal Medicine Gastroenterology
DX: K83.8 Other specified diseases of biliary tract (principal); K82.8 Other specified diseases of gallbladder
CPT/HCPCS: 80048; 74177; 36415; Q9967

== ENCOUNTER 2021-07-20 07:55 | Day surgery (SDC) | payer MEDICARE, BC ==
[~2021-07-20 07:55] MED LIST changes: +ACETAMINOPHEN TAB 500 MG TAB PO PRN; -CLINDAMYCIN IRRIGATION PRN; +DEXAMETHASONE SOD PHOSPHATE 4 MG/ML 1 ML VIAL IV ONE; +GENTAMICIN 240 MG in SODIUM CHLORIDE 0.9% 100 ML IVPB PRN; +HEPARIN SODIUM,PORCINE/PF 5,000 UNIT/0.5 ML SYRINGE SQ PRN; +LACTATED RINGERS 1,000 ML IV SCH; -LIDOCAINE 1% (10MG/ML) FOR IV START INTRADERMA PRN; +MIDAZOLAM 2 MG/2 ML VIAL IV PRN; -SODIUM CHLORIDE 0.9% IRRIGATION PRN; +fentaNYL (PF) 50 MCG/ML 2 ML AMP IV PRN
[2021-07-20] MEDS ORDERED: LIDOCAINE 1% (10MG/ML) FOR IV START INTRADERMA ONE (08:34)
--- NOTE | 2021-07-20 09:25 | P.GSHP ---
History of Present Illness H&P Date: 07/20/21 Chief Complaint: Cholelithiasis This is a 7-year-old female with symptomatic cholelithiasis. Patient's found have gallstones. Patient has an extensive surgical history with previous exploratory laparotomy with ileostomy. Patient has a stoma on the right side of the abdomen. Patient is aware the risk of conversion to the open procedure due to her previous surgical history. Past Medical History Past Medical History: Asthma, COPD, Deep Vein Thrombosis (DVT), Pneumonia, Pulmonary Embolus (PE) Additional Past Medical History / Comment(s): CROHNS WITH OSTOMY - hx DVT and PE after Ileosotomy surgery, hx migraines, hx ulcer, hx anemia, hx pneumonia multiple times,prednisone Apr 2021 History of Any Multi-Drug Resistant Organisms: None Reported Past Surgical History: Appendectomy, Back Surgery, Hysterectomy, Joint Replacement, Orthopedic Surgery Additional Past Surgical History / Comment(s): Ileostomy surgery, neuroma removed from bilateral feet, left wrist surgery, sinus surgery, bilateral cataracts, REVISION OF ILEOSTOMY x 2,neck fusion 04-20-21,lt knee replaced,lt shoulder surg Past Anesthesia/Blood Transfusion Reactions: Motion Sickness Additional Past Anesthesia/Blood Transfusion Reaction / Comment(s): Difficulty waking up from anesthesia, has woken up during surgeries Smoking Status: Current every day smoker - Past Family History Mother Family Medical History: No Reported History Father Family Medical History: Diabetes Mellitus Medications and Allergies Home Medications Medication Instructions Recorded Confirmed Type Aspirin [Adult Low Dose Aspirin EC] 81 mg PO HS 01/14/16 07/20/21 History Ergocalciferol [Vitamin D2 50,000 unit PO SA 01/14/16 07/20/21 History (DRISDOL)] dronabinoL [Dronabinol] 5 mg PO DAILY 02/17/21 07/20/21 History Acetaminophen Tab [Tylenol Tab] 1,000 mg PO Q6HR PRN 07/15/21 07/20/21 History QUEtiapine FUMARATE [SEROquel] 25 mg PO HS 07/15/21 07/20/21 History Allergies Allergy/AdvReac Type Severity Reaction Status Date / Time codeine Allergy Severe Swelling Verified 07/20/21 08:19 Penicillins Allergy Severe Swelling Verified 07/20/21 08:19 hydromorphone HCl AdvReac Hallucinati Verified 07/20/21 08:19 [From Dilaudid] ons Surgical - Exam Vital Signs Temp Pulse Resp BP Pulse Ox 98.2 F 78 16 113/76 98 07/20/21 08:19 07/20/21 08:19 07/20/21 08:19 07/20/21 08:19 07/20/21 08:19 - General well developed, well nourished, no distress - Eyes PERRL - ENT normal pinna - Neck no masses - Respiratory normal expansion - Cardiovascular Rhythm: regular - Abdomen Ileostomy on right abdominal wall Abdomen: soft, non tender Assessment and Plan Assessment: Symptomatically phthisis. We'll perform laparoscopic cholecystectomy. The risk of converting procedure has been discussed the patient and her son.
[2021-07-20] MEDS ORDERED: MIDAZOLAM 2 MG/2 ML VIAL ONE (09:35)
[2021-07-20] MEDS ORDERED: PROPOFOL 10 MG/ML 20 ML VIAL IV ONE (09:35)
[2021-07-20] MEDS ORDERED: NEOSTIGMINE 1 MG/ML 10 ML VIAL ONE (09:35)
[2021-07-20] MEDS ORDERED: ROCURONIUM 10 MG/ML (5 ML VIAL) IV ONE (09:35)
[2021-07-20] MEDS ORDERED: KETOROLAC 15 MG/ML 1 ML VIAL ONE (09:35)
[2021-07-20] MEDS ORDERED: GLYCOPYRROLATE 0.2 MG/ML 2 ML VIAL ONE (09:35)
[2021-07-20] MEDS ORDERED: BUPIVACAIN-EPI 0.25%-1:200,000 30 ML VIAL SQ ONE ×2 (09:35→10:13)
[2021-07-20] MEDS ORDERED: fentaNYL (PF) 50 MCG/ML 2 ML AMP ONE (09:35)
[2021-07-20] MEDS ORDERED: LIDOCAINE 1% INJ 10MG/ML (20 ML MDV) ONE (09:35)
[2021-07-20] MEDS ORDERED: KETAMINE 10 MG/ML 20 ML VIAL ONE (09:35)
[2021-07-20] MEDS ORDERED: SUCCINYLCHOLINE CHLORIDE 100 MG/5 ML SYR IV ONE (09:35)
[2021-07-20] MEDS ORDERED: LACTATED RINGERS 1,000 ML IV ONE ×2 (10:13→11:09)
[2021-07-20] MEDS ORDERED: NALOXONE 0.4 MG/ML 1 ML VIAL IV PRN (11:09)
[2021-07-20] MEDS ORDERED: ONDANSETRON 4 MG/2 ML VIAL IVP PRN (11:09)
--- NOTE | 2021-07-20 11:09 | P.OP ---
Date of Procedure: 07/20/21 Preoperative Diagnosis: Cholecystitis Postoperative Diagnosis: Cholecystitis Adhesions Procedure(s) Performed: Laparoscopic lysis of adhesions Laparoscopic cholecystectomy Anesthesia: GATITO Surgeon: Omid Leon Estimated Blood Loss (ml): 5 Pathology: other (Gallbladder) Condition: stable Disposition: PACU Description of Procedure: The patient's placed on the operative table in the supine position. She received general anesthesia. The patient ileostomy in the right mid abdomen. This was prepped and draped in sterile fashion. Due to the patient's ileostomy and. Midline scar a Veress needles placed a left upper quadrant. The abdomen was insufflated. After adequate insufflation a 5 mm optical trocar was placed into the peritoneal cavity. The laparoscope was then placed. Cavity. A few adhesions to the anterior abdominal wall were visualized. Another 5 mm trochars placed in the left lower quadrant. Using Harmonic scissors the adhesions were lysed. Next a 8 mm trochars placed in the epigastric position. A another 5 mm trochars placed in the right lateral position. Following this another 5 mm trocar with was able to be placed in the right mid abdomen to the left of the patient ileostomy. The patient's placed in reverse Trendelenburg right side up position. The gallbladder is grasped on the fundus. Traction the gallbladder was cephalad. Adhesions to gallbladder lysed with sharp dissection. The infundibulum was grasped. And then traction on the gallbladder fundus and infundibulum was created in order to provide adequate visualization of the cystic duct. The triangle safety was seen. Cystic duct was then ligated with 2-0 Ethibond suture and a timeout device. The gallbladder was then transected using Harmonic scissors. The cystic arteries and divided using Harmonic scissors. The gallbladder was removed liver bed using electrocautery. And the Harmonic scissors. The gallbladder was extracted through the epigastric port site. There was areas no bleeding seen. The trochars withdrawn. The skin was closed interrupted 3-0 Monocryl suture. Dermabond dressing applied. Patient top she will was sent to recovery room stable condition.
[2021-07-20] MEDS: oxyCODONE-APAP 5-325MG 1 EACH TAB PO PRN ×3 (12:12→20:28)
[2021-07-20] MEDS: PANTOPRAZOLE 40 MG/10 ML VIAL IVP SCH (13:31)
[2021-07-20] MEDS ORDERED: HYDROmorphone 1 MG/ML 1 ML SYRINGE IVP PRN (16:14)
[2021-07-21 00:54] VITALS: TEMP 98.5
[2021-07-21] MEDS: oxyCODONE-APAP 5-325MG 1 EACH TAB PO PRN ×3 (00:56→09:50)
[2021-07-21 08:20] VITALS: BP 93/53; PULSE 64
[2021-07-21] MEDS: PANTOPRAZOLE 40 MG/10 ML VIAL IVP SCH (08:37)
[2021-07-21 08:40] LABS: Basophils % (A) 0 %; Eosinophils # (A) 0.1 k/uL (0-0.7); Eosinophils % (A) 1 %; HCT 39.3 % (34.0-46.0); HGB 13.2 gm/dL (11.4-16.0); Lymphocytes % (A) 17 %; MCH 31.8 pg (25.0-35.0); MCHC 33.6 g/dL (31.0-37.0); MCV 94.5 fL (80.0-100.0); Monocytes # (A) 0.7 k/uL (0-1.0); Monocytes % (A) 6 %; Neutrophils # (A) 8.9 k/uL (1.3-7.7); Neutrophils % (A) 75 %; Platelet Count 191 k/uL (150-450); RBC 4.16 m/uL (3.80-5.40); RDW 13.5 % (11.5-15.5); WBC 11.8 k/uL (3.8-10.6)
[2021-07-21 08:49] LABS: Calcium 9.9 mg/dL (8.4-10.2); Potassium 4.6 mmol/L (3.5-5.1)
[2021-07-21] MEDS ORDERED: ENOXAPARIN 40 MG/0.4 ML SYRINGE SQ SCH (09:00)
[2021-07-21] MEDS ORDERED: ACETAMINOPHEN TAB 325 MG TAB PO PRN (12:11)
[2021-07-21 13:00] VITALS: RESP 16
--- NOTE | 2021-07-21 13:23 | P.DS ---
Providers Expected date of discharge: 07/21/21 Attending physician: Omid Leon Consults: 07/20/21 11:09 Consult Physician Routine Consulting Provider: Russell Alcazar Consult Reason/Comments: Medical management Do you want consulting provider notified?: Yes Primary care physician: Russell Alcazar MD Hospital Course: Discharge diagnosis 1. Cholecystitis and adhesions status post laparoscopic cholecystectomy and lysis of adhesions 2. Leukocytosis likely reactive due to steroids Hospital course This is a 70-year-old female with symptomatic cholelithiasis. Patient has an extensive surgical history with previous exploratory laparotomy with ileostomy. Patient has a stoma on the right side of the abdomen. Patient denies any abdominal pain. She is tolerating diet. She has been up and ambulating. She is having air and stool through ostomy. She is afebrile. Incision sites clean dry and intact. She is stable for discharge. Please refer to chart for any further details. Physician Blueprint Maker note has been reviewed by physician. Signing provider agrees with the documented findings, assessment, and plan of care. Patient Condition at Discharge: Stable Plan - Discharge Summary Discharge Rx Participant: No New Discharge Prescriptions: New oxyCODONE-APAP 5-325MG [Percocet 5-325 mg] 1 each PO Q6HR PRN #12 tab PRN Reason: Pain Continue Ergocalciferol [Vitamin D2 (DRISDOL)] 50,000 unit PO SA Aspirin [Adult Low Dose Aspirin EC] 81 mg PO HS dronabinoL [Dronabinol] 5 mg PO DAILY QUEtiapine FUMARATE [SEROquel] 25 mg PO HS Discontinued Acetaminophen Tab [Tylenol Tab] 1,000 mg PO Q6HR PRN PRN Reason: Pain Discharge Medication List Aspirin [Adult Low Dose Aspirin EC] 81 mg PO HS 01/14/16 [History] Ergocalciferol [Vitamin D2 (DRISDOL)] 50,000 unit PO SA 01/14/16 [History] dronabinoL [Dronabinol] 5 mg PO DAILY 02/17/21 [History] QUEtiapine FUMARATE [SEROquel] 25 mg PO HS 07/15/21 [History] oxyCODONE-APAP 5-325MG [Percocet 5-325 mg] 1 each PO Q6HR PRN #12 tab 07/21/21 [Rx] Follow up Appointment(s)/Referral(s): Omid Leon MD [STAFF PHYSICIAN] - 07/28/21 2:45 am Activity/Diet/Wound Care/Special Instructions: No driving while taking Percocet No lifting over 10 pounds You may shower. No soaking or tub baths for 2 weeks Very light activity until you are reevaluated at your follow up appointment with your surgeon Don't take Tylenol well taking the Percocet. Do not use more than 4 g of Tylenol in a 24-hour period. Discharge Disposition: HOME SELF-CARE
[2021-07-21] MEDS ORDERED: QUEtiapine 25 MG TAB PO SCH (21:00)
== END 2021-07-21 14:20 | disposition home or self-care (01) ==
LOC: OR 07:55 → 6NMEDSUR 10:49 → 6PED 17:57 → OR 07-21 14:20
PROVIDERS: ATTEND Surgery
DX: K81.9 Cholecystitis, unspecified (principal); K66.0 Peritoneal adhesions (postprocedural) (postinfection)
CPT/HCPCS: 49329; 47562; J1100; J2405; J1580; J1170; C9113; J1644; 80048; 85025; 88304

== ENCOUNTER → 2021-10-27 | Outpatient (CLI) | payer MEDICARE, BC ==
--- NOTE | 2021-10-31 10:28 | MM ---
Reason for exam: screening (asymptomatic). Last mammogram was performed 1 year and 4 months ago. History: Patient is postmenopausal. Family history of breast cancer in 2 maternal aunts. Took estrogen for 1 year 8 months. Physical Findings: A clinical breast exam by your physician is recommended on an annual basis and results should be correlated with mammographic findings. MG 3D Screening Mammo W/Cad Bilateral CC and MLO view(s) were taken. Prior study comparison: July 05, 2020, bilateral MG 3d screening mammo w/cad. February 06, 2019, bilateral MG screening mammo w CAD. There are scattered fibroglandular densities. No significant changes when compared with prior studies. ASSESSMENT: Negative, BI-RAD 1 RECOMMENDATION: Routine screening mammogram of both breasts in 1 year.
== END | disposition home or self-care (01) ==
LOC: RADMAMWWP 07:12
PROVIDERS: ATTEND Family Medicine
DX: Z12.31 Encounter for screening mammogram for malignant neoplasm of breast (principal); Z78.0 Asymptomatic menopausal state; Z80.3 Family history of malignant neoplasm of breast
CPT/HCPCS: 77063; 77067

== ENCOUNTER → 2022-02-09 | Outpatient (CLI) | payer MEDICARE, BC ==
--- NOTE | 2022-02-09 19:51 | CT ---
EXAMINATION TYPE: CT chest w con DATE OF EXAM: 02/09/2022 COMPARISON: CT dated 05/26/2019 HISTORY: Bronchiectasis, uncomplicated. Cough CT DLP: 334 mGycm Automated exposure control for dose reduction was used. TECHNIQUE: CT scan of the chest is performed with IV Contrast, patient injected with 100 mL of Isovue 300. FINDINGS: LUNGS: Subsegmental atelectasis seen in the left lower lobe. Bilateral basal linear pulmonary atelect asis and dependent density with subpleural reticulations. Stable 3 mm nodule along the transverse fis sure. Grossly unremarkable lungs otherwise. Patent trachea and main bronchi. No pleural effusion. MEDIASTINUM: Subcentimeter bilateral hilar and mediastinal lymph nodes without interval progression. No gross cardiomegaly. Scattered arterial atherosclerotic calcifications. Patent major mediastinal ve ssels. No sizable pericardial effusion. OTHER: Previous cholecystectomy. Inferior cervical spine fixation. Degenerative changes of thoracic spine. IMPRESSION: No convincing evidence of bronchiectasis. Nonspecific pulmonary changes and other incidental findings as described above.
== END | disposition home or self-care (01) ==
LOC: RADCTMAIN 11:34
PROVIDERS: ATTEND Family Medicine
DX: J47.9 Bronchiectasis, uncomplicated (principal); I25.10 Atherosclerotic heart disease of native coronary artery without angina pectoris; J98.11 Atelectasis
CPT/HCPCS: 82565; 84520; 71260; Q9967

== ENCOUNTER 2022-05-08 14:11 | Emergency (ER) | payer MEDICARE, BC ==
[2022-05-08 14:38] VITALS: BP 92/61; PULSE 78; RESP 16; TEMP 98.3
[2022-05-08] MEDS ORDERED: DIPH,PERTUS(ACELL)TETVAC-LF 0.5 ML VIAL IM ONE (14:41)
[2022-05-08] MEDS ORDERED: TOPICAL SKIN ADHESIVE 1 EACH AMP TOPICAL ONE (14:49)
[2022-05-08] MEDS ORDERED: oxyCODONE-APAP 5-325MG 1 EACH TAB PO STA (14:50)
--- NOTE | 2022-05-08 14:56 | ED ---
Wound/Laceration HPI - General Chief Complaint: Wound/Laceration Stated Complaint: Finger injury Time Seen by Provider: 05/08/22 14:40 Source: patient, family (Granddaughter), RN notes reviewed, old records reviewed Mode of arrival: ambulatory Limitations: no limitations - History of Present Illness Initial Comments: Well-appearing 71-year-old female presents ambulatory with complaints of cutting the tip of her left index finger on a prefabricated houses trimmer today. No active bleeding. No other injury. Patient has full range of motion. Tetanus shot is not u p-to-date. -: hour(s) Extremity Location: Left: Hand (index finger) Place: outdoors Patient Tetanus UTD: No Context: accidental, sharp object use, power tool use (trimmer machine) Associated Symptoms: none - Related Data Home Medications Medication Instructions Recorded Confirmed Aspirin [Adult Low Dose Aspirin EC] 81 mg PO HS 01/14/16 07/20/21 Ergocalciferol [Vitamin D2 50,000 unit PO SA 01/14/16 07/20/21 (DRISDOL)] dronabinoL [Dronabinol] 5 mg PO DAILY 02/17/21 07/20/21 QUEtiapine FUMARATE [SEROquel] 25 mg PO HS 07/15/21 07/20/21 Previous Rx's Medication Instructions Recorded oxyCODONE-APAP 5-325MG [Percocet 1 each PO Q6HR PRN #12 tab 07/21/21 5-325 mg] Allergies Allergy/AdvReac Type Severity Reaction Status Date / Time codeine Allergy Severe Swelling Verified 07/20/21 08:19 Penicillins Allergy Severe Swelling Verified 07/20/21 08:19 hydromorphone HCl AdvReac Hallucinati Verified 07/20/21 08:19 [From Dilaudid] ons Review of Systems ROS Statement: Those systems with pertinent positive or pertinent negative responses have been documented in the HPI. ROS Other: All systems not noted in ROS Statement are negative. Past Medical History Past Medical History: Asthma, COPD, Deep Vein Thrombosis (DVT), Pneumonia, Pulmonary Embolus (PE) Additional Past Medical History / Comment(s): CROHNS WITH OSTOMY - hx DVT and PE after Ileosotomy surgery, hx migraines, hx ulcer, hx anemia, hx pneumonia multiple times,prednisone Apr 2021 History of Any Multi-Drug Resistant Organisms: None Reported Past Surgical History: Appendectomy, Back Surgery, Hysterectomy, Joint Replacement, Orthopedic Surgery Additional Past Surgical History / Comment(s): Ileostomy surgery, neuroma removed from bilateral feet, left wrist surgery, sinus surgery, bilateral cataracts, REVISION OF ILEOSTOMY x 2,neck fusion 04-20-21,lt knee replaced,lt shoulder surg Past Anesthesia/Blood Transfusion Reactions: Motion Sickness Additional Past Anesthesia/Blood Transfusion Reaction / Comment(s): Difficulty waking up from anesthesia, has woken up during surgeries Past Psychological History: No Psychological Hx Reported Smoking Status: Current every day smoker Past Alcohol Use History: Occasional Past Drug Use History: None Reported - Past Family History Mother Family Medical History: No Reported History Father Family Medical History: Diabetes Mellitus General Exam Limitations: no limitations General appearance: alert, in no apparent distress Head exam: Present: atraumatic Respiratory exam: Absent: respiratory distress, accessory muscle use Cardiovascular Exam: Present: regular rate Left Elbow exam: Present: full ROM. Absent: tenderness, swelling Forearm Wrist exam: Present: full ROM. Absent: tenderness, swelling Hand Wrist exam: Present: full ROM, tenderness (Finger pad left index finger flap avulsion intact no active bleeding), laceration. Absent: swelling, ecchymosis, deformity, erythema, subungual hematoma Neurosensory exam: Present: radial nerve intact, ulnar nerve intact, median nerve intact Vascular: Present: normal capillary refill. Absent: vascular compromise Neurological exam: Present: alert, oriented X3, normal gait Psychiatric exam: Present: normal affect, normal mood Skin exam: Present: warm, dry, normal color. Absent: cyanosis, diaphoretic, petechiae, pallor Course Vital Signs 05/08/22 14:35 Temperature 98.3 F Pulse Rate 78 Respiratory 16 Rate Blood Pressure 92/61 O2 Sat by Pulse 97 Oximetry Medical Decision Making - Medical Decision Making Flap avulsion to the distal finger pad of left index finger. No active bleeding. Patient has full range of motion. She is neurovascularly intact. Full range of motion. Capillary refill less than 2 seconds. Tetanus shot was given. Exofin glue was applied after irrigation with 40 mL of normal saline. She was directed to follow up with her primary care doctor as needed and return if any concerns for infection. Case discussed with Dr. Marie Disposition Clinical Impression: Laceration Disposition: HOME SELF-CARE Condition: Good Instructions (If sedation given, give patient instructions): Laceration (ED), Skin Adhesive Care (ED) Additional Instructions: Keep wound clean and dry. Do not pick the glue off. Do not put any ointment or lotions on wound. Return to the emergency room with any new or concerning symptoms including signs of infection, drainage, redness or increased pain and swelling. Is patient prescribed a controlled substance at d/c from ED?: No Referrals: Russell Alcazar MD [Primary Care Provider] - 1-2 days Time of Disposition: 14:56
== END 2022-05-08 16:00 | disposition home or self-care (01) ==
LOC: EC 14:11
DX: S61.211A Laceration without foreign body of left index finger without damage to nail, initial encounter (principal); J44.9 Chronic obstructive pulmonary disease, unspecified; Z86.711 Personal history of pulmonary embolism; Z86.718 Personal history of other venous thrombosis and embolism; F17.200 Nicotine dependence, unspecified, uncomplicated; Z23 Encounter for immunization; Z88.5 Allergy status to narcotic agent; Z88.0 Allergy status to penicillin; W29.3XXA Contact with powered garden and outdoor hand tools and machinery, initial encounter
CPT/HCPCS: 12001; 90471; 90715; 99282

== ENCOUNTER → 2022-10-30 | Outpatient (CLI) | payer MEDICARE, BC ==
--- NOTE | 2022-10-31 15:21 | MM ---
Reason for Exam: Screening (asymptomatic). Last screening mammogram was performed 12 month(s) ago. Patient History: Menarche at age 9. First Full-Term at age 17. Left ovary removed at age 34. Right ovary removed at age 34. Hysterectomy at age 34. Postmenopausal. Estrogen for 1 year, 8 months, until age 46. Maternal aunt had breast cancer. Maternal aunt had breast cancer. Risk Values: Janel 5 year model risk: 1.4%. NCI Lifetime model risk: 3.6%. Prior Study Comparison: 02/06/2019 Bilateral Screening Mammogram, [facility]. 07/05/2020 Bilateral Screening Mammogram, [facility]. 10/27/2021 Bilateral Screening Mammogram, [facility]. Tissue Density: There are scattered fibroglandular densities. Findings: Analyzed By CAD. There is no suspicious group of microcalcifications or new suspicious mass in either breast. Overall Assessment: Negative, BI-RAD 1 Management: Screening Mammogram of both breasts in 1 year. A clinical breast exam by your physician is recommended on an annual basis and results should be correlated with mammographic findings. [facility] will attempt to contact patient to return for supplemental views and ultrasound if indicated. Electronically signed and approved by: Rafael Mejia DO
== END | disposition home or self-care (01) ==
LOC: RADMAMWWP 07:54
PROVIDERS: ATTEND Family Medicine
DX: Z12.31 Encounter for screening mammogram for malignant neoplasm of breast (principal); Z78.0 Asymptomatic menopausal state; Z80.3 Family history of malignant neoplasm of breast
CPT/HCPCS: 77063; 77067

== ENCOUNTER 2023-07-31 08:58 | Observation (INO) | payer MEDICARE, BC ==
[2023-07-31] MEDS ORDERED: IPRATROPIUM-ALBUTEROL 3 ML NEB INHALATION STA (09:17)
[2023-07-31] MEDS ORDERED: methylPREDNISolone SOD SUCCI 125 MG/2 ML VIAL IV STA (09:17)
[2023-07-31] MEDS ORDERED: SODIUM CHLORIDE 0.9% 500 ML 500 ML IV STA (09:17)
[2023-07-31 09:47] LABS: Basophils % (A) 0 %; Eosinophils # (A) 0.1 k/uL (0-0.7); Eosinophils % (A) 1 %; HCT 50.9 % (34.0-46.0); HGB 17.2 gm/dL (11.4-16.0); Lymphocytes # (A) 1.9 k/uL (1.0-4.8); Lymphocytes % (A) 16 %; MCH 33.3 pg (25.0-35.0); MCHC 33.8 g/dL (31.0-37.0); MCV 98.4 fL (80.0-100.0); Mean Platelet Volume 8.4; Monocytes # (A) 0.8 k/uL (0-1.0); Monocytes % (A) 6 %; Neutrophils # (A) 9.3 k/uL (1.3-7.7); Neutrophils % (A) 76 %; Platelet Count 265 k/uL (150-450); RBC 5.18 m/uL (3.80-5.40); RDW 13.1 % (11.5-15.5); WBC 12.3 k/uL (3.8-10.6)
[2023-07-31 10:00] LABS: ALT 35 U/L (4-34); AST 40 U/L (14-36); African American GFR (CKD) 75 (>60 ml/min/1.73 sqM); Albumin 4.9 g/dL (3.5-5.0); Alkaline Phosphatase 93 U/L (38-126); Anion Gap 15 mmol/L; Blood Urea Nitrogen 19 mg/dL (7-17); Calcium 10.6 mg/dL (8.4-10.2); Carbon Dioxide 17 mmol/L (22-30); Chloride 105 mmol/L (98-107); Glucose 125 mg/dL (74-99); Magnesium 1.9 mg/dL (1.6-2.3); Non-African American GFR(CKD) 65 (>60 ml/min/1.73 sqM); Sodium 137 mmol/L (137-145)
[2023-07-31 10:09] LABS: INR 0.8 (<1.2); NT-Pro-B-Type Natriuretic Pept 160 pg/mL; Partial Thromboplastin Time 23.1 sec (22.0-30.0); Prothrombin Time 9.6 sec (10.0-12.5)
--- NOTE | 2023-07-31 10:12 | XR ---
EXAMINATION TYPE: XR chest 2V DATE OF EXAM: 07/31/2023 COMPARISON: 04/04/2021 TECHNIQUE: PA and lateral views submitted. HISTORY: Cough FINDINGS: The lungs are clear and there is no pneumothorax, pleural effusion, or focal pneumonia. Heart size normal and no overt failure. Osseous structures demonstrate hypertrophic and degenerative changes of the spine. Postsurgical change overlying the cervical spine. Diffuse emphysematous changes. Diffuse o steopenia with AC joint arthropathy. IMPRESSION: 1. No acute process.
--- NOTE | 2023-07-31 10:52 | ED ---
SOB HPI - General Chief Complaint: Shortness of Breath Stated Complaint: PHI Time Seen by Provider: 07/31/23 09:05 Source: patient, RN notes reviewed Mode of arrival: ambulatory Limitations: no limitations - History of Present Illness Initial Comments: 72-year-old female presents emergency Department chief complaint of increasing shortness of breath. She states that she's been sick for last few days up to week. She's been having increasing shortness breath no relief with her inhaler she has COPD. She states her cough is productive with sputum. Patient denies any ear pain, abdominal pain, leg swelling or leg pain. - Related Data Home Medications Medication Instructions Recorded Confirmed Ergocalciferol (Vitamin D2) 1,250 mcg PO SA 07/31/23 07/31/23 [Drisdol (50,000 Iu)] Fluticasone Propion/Salmeterol 1 puff PO RT-BID 07/31/23 07/31/23 [Advair 250-50 Diskus] methylPREDNISolone Dose Pack See Taper PO DIRECTED 07/31/23 07/31/23 [Medrol Dose Pack] Allergies Allergy/AdvReac Type Severity Reaction Status Date / Time codeine Allergy Severe Swelling Verified 07/31/23 09:27 and itching Penicillins Allergy Severe Swelling Verified 07/31/23 09:27 of throat, Rash/Hives, Itching hydromorphone HCl AdvReac Hallucinati Verified 07/31/23 09:27 [From Dilaudid] ons Review of Systems ROS Statement: Those systems with pertinent positive or pertinent negative responses have been documented in the HPI. ROS Other: All systems not noted in ROS Statement are negative. Past Medical History Past Medical History: Asthma, COPD, Deep Vein Thrombosis (DVT), Osteoarthritis (OA), Pneumonia, Pulmonary Embolus (PE) Additional Past Medical History / Comment(s): CROHNS WITH OSTOMY - hx DVT and PE after Ileosotomy surgery, hx migraines, hx ulcer, hx anemia, hx pneumonia multiple times, History of Any Multi-Drug Resistant Organisms: None Reported Past Surgical History: Appendectomy, Back Surgery, Hysterectomy, Joint Replacement, Orthopedic Surgery Additional Past Surgical History / Comment(s): Ileostomy surgery, neuroma re moved from bilateral feet, left wrist surgery, sinus surgery, bilateral cataracts, REVISION OF ILEOSTOMY to the right side ,neck fusion 9-1-21,lt knee replaced,lt shoulder surg, bladder suspension surgery, Past Anesthesia/Blood Transfusion Reactions: Previous Problems w/ Anesthesia, Motion Sickness Additional Past Anesthesia/Blood Transfusion Reaction / Comment(s): Difficulty waking up from anesthesia, has woken up during surgeries Past Psychological History: No Psychological Hx Reported Smoking Status: Current every day smoker Past Alcohol Use History: Occasional - Past Family History Mother Family Medical History: No Reported History Father Family Medical History: Diabetes Mellitus General Exam Limitations: no limitations General appearance: alert, in no apparent distress Head exam: Present: atraumatic, normocephalic, normal inspection Eye exam: Present: normal appearance, PERRL, EOMI. Absent: scleral icterus, conjunctival injection, periorbital swelling ENT exam: Present: normal exam, normal oropharynx, mucous membranes moist Neck exam: Present: normal inspection, full ROM. Absent: tenderness, menin gismus, lymphadenopathy Respiratory exam: Present: respiratory distress, wheezes, decreased breath sounds. Absent: normal lung sounds bilaterally, rales, rhonchi, stridor Cardiovascular Exam: Present: normal rhythm, tachycardia, normal heart sounds. Absent: systolic murmur, diastolic murmur, rubs, gallop, clicks GI/Abdominal exam: Present: soft, normal bowel sounds. Absent: distended, tenderness, guarding, rebound, rigid Course Vital Signs 07/31/23 07/31/23 07/31/23 08:59 09:20 09:34 Temperature 97.8 F 98.3 F Pulse Rate 124 H 88 91 Respiratory 32 H 24 Rate Blood Pressure 156/81 143/92 O2 Sat by Pulse 93 L 95 Oximetry 07/31/23 07/31/23 07/31/23 09:39 09:50 10:28 Temperature Pulse Rate 98 96 Respiratory 22 20 Rate Blood Pressure 119/81 O2 Sat by Pulse 94 L Oximetry 07/31/23 07/31/23 07/31/23 11:08 12:04 13:05 Temperature 98.3 F Pulse Rate 97 96 90 Respiratory 19 21 20 Rate Blood Pressure 115/85 138/89 122/81 O2 Sat by Pulse 94 L 95 94 L Oximetry Medical Decision Making - Medical Decision Making Was pt. sent in by a medical professional or institution (, PA, OBSTETRICS GYN PHYSICIAN, urgent care, hospital, or [facility]...) When possible be specific @ -No Did you speak to anyone other than the patient for history (EMS, parent, family, police, friend...)? What history was obtained from this source @ -No Did you review nursing and triage notes (agree or disagree)? Why? @ -I reviewed and agree with nursing and triage notes Were old charts reviewed (outside hosp., previous admission, EMS record, old EKG, old radiological studies, urgent care reports/EKG's, [facility] records)? Report findings @ -No old charts were reviewed Differential Diagnosis (chest pain, altered mental status, abdominal pain women, abdominal pain men, vaginal bleeding, weakness, fever, dyspnea, syncope, headache, dizziness, GI bleed, back pain, seizure, CVA, palpatations, mental health, musculoskeletal)? @ -Differential Dyspnea: Coronary syndrome, arrhythmia, tamponade, asthma, COPD, pulmonary embolism, pneumonia, pneumothorax, pulmonary effusion, anaphylaxis, diabetic ketoacidosis, flailed chest, pulmonary contusion, diaphragmatic rupture, anemia, neuromuscular, this is not meant to be an all-inclusive list. EKG interpreted by me (3pts min.). @ -As above X-rays interpreted by me (1pt min.). @ -Chest x-ray shows COPD changes CT interpreted by me (1pt min.). @ -None done U/S interpreted by me (1pt. min.). @ -None done What testing was considered but not performed or refused? (CT, X-rays, U/S, labs)? Why? @ -None What meds were considered but not given or refused? Why? @ -None Did you discuss the management of the patient with other professionals (professionals i.e. , PA, OBSTETRICS GYN PHYSICIAN, lab, RT, psych nurse, high school social studies tutor, photogrammetric compilation specialist, teacher, cavalry officer, leather case finisher)? Give summary @ -Dr. Alcazar for admission secondary to COPD exacerbation Was smoking cessation discussed for >3mins.? @ -No Was critical care preformed (if so, how long)? @ -No Were there social determinants of health that impacted care today? How? (Homelessness, low income, unemployed, alcoholism, drug addiction, transportation, low edu. Level, literacy, decrease access to med. care, halfway, rehab)? @ -No Was there de-escalation of care discussed even if they declined (Discuss DNR or withdrawal of care, Hospice)? DNR status @ -No What co-morbidities impacted this encounter? (DM, HTN, Smoking, COPD, CAD, Cancer, CVA, ARF, Chemo, Hep., AIDS, mental health diagnosis, sleep apnea, morbid obesity)? @ -COPD Was patient admitted / discharged? Hospital course, mention meds given and route, prescriptions, significant lab abnormalities, going to OR and other pertinent info. @ -Admitted patient had multiple reactions, steroids patient has mild improvement. Patient's x-ray is negative. Patient started on doxycycline, steroids, breathing treatments, pulmonary evaluation Undiagnosed new problem with uncertain prognosis? @ -No Drug Therapy requiring intensive monitoring for toxicity (Heparin, Nitro, Insulin, Cardizem)? @ -No Were any procedures done? @ -No Diagnosis/symptom? @ -COPD exacerbation Acute, or Chronic, or Acute on Chronic? @ -Acute Uncomplicated (without systemic symptoms) or Complicated (systemic symptoms)? @ -Calcanea Side effects of treatment? @ -No Exacerbation, Progression, or Severe Exacerbation? @ -Exacerbation Poses a threat to life or bodily function? How? (Chest pain, [place], [place], pneumonia, PE, COPD, DKA, ARF, appy, cholecystitis, CVA, Diverticulitis, Homicidal, Suicidal, threat to staff... and all critical care pts) @ -[Yes possible respiratory failure - Lab Data Result diagrams: 07/31/23 09:19 07/31/23 09:19 Lab Results 07/31/23 07/31/23 07/31/23 Range/Units 09:19 09:19 09:19 WBC 12.3 H (3.8-10.6) k/uL RBC 5.18 (3.80-5.40) m/uL Hgb 17.2 H (11.4-16.0) gm/dL Hct 50.9 H (34.0-46.0) % MCV 98.4 (80.0-100.0) fL MCH 33.3 (25.0-35.0) pg MCHC 33.8 (31.0-37.0) g/dL RDW 13.1 (11.5-15.5) % Plt Count 265 (150-450) k/uL MPV 8.4 Neutrophils % 76 % Lymphocytes % 16 % Monocytes % 6 % Eosinophils % 1 % Basophils % 0 % Neutrophils # 9.3 H (1.3-7.7) k/uL Lymphocytes # 1.9 (1.0-4.8) k/uL Monocytes # 0.8 (0-1.0) k/uL Eosinophils # 0.1 (0-0.7) k/uL Basophils # 0.0 (0-0.2) k/uL PT 9.6 L (10.0-12.5) sec INR 0.8 (<1.2) APTT 23.1 (22.0-30.0) sec Sodium 137 (137-145) mmol/L Potassium 4.0 (3.5-5.1) mmol/L Chloride 105 (98-107) mmol/L Carbon Dioxide 17 L (22-30) mmol/L Anion Gap 15 mmol/L BUN 19 H (7-17) mg/dL Creatinine 0.89 (0.52-1.04) mg/dL Est GFR (CKD-EPI)AfAm 75 (>60 ml/min/1.73 sqM) Est GFR (CKD-EPI)NonAf 65 (>60 ml/min/1.73 sqM) Glucose 125 H (74-99) mg/dL Lactic Ac Sepsis Rflx Plasma Lactic Acid Michael (0.7-2.0) mmol/L Calcium 10.6 H (8.4-10.2) mg/dL Magnesium 1.9 (1.6-2.3) mg/dL Total Bilirubin 1.0 (0.2-1.3) mg/dL AST 40 H (14-36) U/L ALT 35 H (4-34) U/L Alkaline Phosphatase 93 (38-126) U/L Troponin I (0.000-0.034) ng/mL NT-Pro-B Natriuret Pep 160 pg/mL Total Protein 8.0 (6.3-8.2) g/dL Albumin 4.9 (3.5-5.0) g/dL Influenza Type A (PCR) (Not Detectd) Influenza Type B (PCR) (Not Detectd) RSV (PCR) (Not Detectd) SARS-CoV-2 (PCR) (Not Detectd) 07/31/23 07/31/23 07/31/23 Range/Units 09:19 09:19 10:16 WBC (3.8-10.6) k/uL RBC (3.80-5.40) m/uL Hgb (11.4-16.0) gm/dL Hct (34.0-46.0) % MCV (80.0-100.0) fL MCH (25.0-35.0) pg MCHC (31.0-37.0) g/dL RDW (11.5-15.5) % Plt Count (150-450) k/uL MPV Neutrophils % % Lymphocytes % % Monocytes % % Eosinophils % % Basophils % % Neutrophils # (1.3-7.7) k/uL Lymphocytes # (1.0-4.8) k/uL Monocytes # (0-1.0) k/uL Eosinophils # (0-0.7) k/uL Basophils # (0-0.2) k/uL PT (10.0-12.5) sec INR (<1.2) APTT (22.0-30.0) sec Sodium (137-145) mmol/L Potassium (3.5-5.1) mmol/L Chloride (98-107) mmol/L Carbon Dioxide (22-30) mmol/L Anion Gap mmol/L BUN (7-17) mg/dL Creatinine (0.52-1.04) mg/dL Est GFR (CKD-EPI)AfAm (>60 ml/min/1.73 sqM) Est GFR (CKD-EPI)NonAf (>60 ml/min/1.73 sqM) Glucose (74-99) mg/dL Lactic Ac Sepsis Rflx Y Plasma Lactic Acid Michael 3.5 H* (0.7-2.0) mmol/L Calcium (8.4-10.2) mg/dL Magnesium (1.6-2.3) mg/dL Total Bilirubin (0.2-1.3) mg/dL AST (14-36) U/L ALT (4-34) U/L Alkaline Phosphatase (38-126) U/L Troponin I <0.012 (0.000-0.034) ng/mL NT-Pro-B Natriuret Pep pg/mL Total Protein (6.3-8.2) g/dL Albumin (3.5-5.0) g/dL Influenza Type A (PCR) (Not Detectd) Influenza Type B (PCR) (Not Detectd) RSV (PCR) (Not Detectd) SARS-CoV-2 (PCR) (Not Detectd) 07/31/23 Range/Units 10:45 WBC (3.8-10.6) k/uL RBC (3.80-5.40) m/uL Hgb (11.4-16.0) gm/dL Hct (34.0-46.0) % MCV (80.0-100.0) fL MCH (25.0-35.0) pg MCHC (31.0-37.0) g/dL RDW (11.5-15.5) % Plt Count (150-450) k/uL MPV Neutrophils % % Lymphocytes % % Monocytes % % Eosinophils % % Basophils % % Neutrophils # (1.3-7.7) k/uL Lymphocytes # (1.0-4.8) k/uL Monocytes # (0-1.0) k/uL Eosinophils # (0-0.7) k/uL Basophils # (0-0.2) k/uL PT (10.0-12.5) sec INR (<1.2) APTT (22.0-30.0) sec Sodium (137-145) mmol/L Potassium (3.5-5.1) mmol/L Chloride (98-107) mmol/L Carbon Dioxide (22-30) mmol/L Anion Gap mmol/L BUN (7-17) mg/dL Creatinine (0.52-1.04) mg/dL Est GFR (CKD-EPI)AfAm (>60 ml/min/1.73 sqM) Est GFR (CKD-EPI)NonAf (>60 ml/min/1.73 sqM) Glucose (74-99) mg/dL Lactic Ac Sepsis Rflx Plasma Lactic Acid Michael (0.7-2.0) mmol/L Calcium (8.4-10.2) mg/dL Magnesium (1.6-2.3) mg/dL Total Bilirubin (0.2-1.3) mg/dL AST (14-36) U/L ALT (4-34) U/L Alkaline Phosphatase (38-126) U/L Troponin I (0.000-0.034) ng/mL NT-Pro-B Natriuret Pep pg/mL Total Protein (6.3-8.2) g/dL Albumin (3.5-5.0) g/dL Influenza Type A (PCR) Not Detected (Not Detectd) Influenza Type B (PCR) Not Detected (Not Detectd) RSV (PCR) Not Detected (Not Detectd) SARS-CoV-2 (PCR) Not Detected (Not Detectd) - EKG Data -: EKG Interpreted by Me EKG Comments: EKG performed at 9:12 sinus rhythm rate of 98 [place] 141 QRS 84 QT/QTC 339/ 394 Disposition Clinical Impression: COPD exacerbation, Dyspnea Disposition: ADMITTED IP TO THIS HOSP Condition: Fair Time of Disposition: 11:45
[2023-07-31] MEDS ORDERED: NALOXONE 0.4 MG/ML 1 ML VIAL IVP PRN (12:17)
[2023-07-31] MEDS ORDERED: DOXYCYCLINE 100 MG CAP PO STA (12:19)
[2023-07-31] MEDS ORDERED: ALBUTEROL NEBULIZED 2.5 MG/3 ML INHALATION PRN (12:19)
[2023-07-31] MEDS: IPRATROPIUM-ALBUTEROL 3 ML NEB INHALATION SCH ×2 (15:39→21:04)
[2023-07-31] MEDS: ACETAMINOPHEN TAB 325 MG TAB PO PRN (15:57)
--- NOTE | 2023-07-31 16:42 | P.CNPUL ---
History of Present Illness Consult date: 07/31/23 Requesting physician: Russell Alcazar Reason for consult: COPD Chief complaint: Shortness of breath History of present illness: This is a 72-year-old female, known history of COPD, tobacco dependence syndrome, continues to smoke on a regular basis, patient is not O2 dependent and not prednisone dependent, she is known to have history of Crohn's disease with ostomy, history of DVT, patient presented to the ER with a few days' history of cough wheezing and shortness of breath. Cough is described as productive with yellow phlegm, no fever no chills no hemoptysis and no chest pain. Chest x-ray on admission showed no evidence of infiltrate. Patient tested negative for COVID-19 infection she also tested negative for influenza and for RSV, her O2 saturation was 94% on room air, 95% on 2 L nasal cannula. Patient was admitted considering his significant pulmonary symptoms, and this consult was initiated. I saw this patient in the ER, recommended Solu-Medrol, DuoNeb updrafts 4 times a day and when necessary, doxycycline, and methylprednisolone. Review of Systems Constitutional: Denies chills, Denies fever Eyes: denies blurred vision, denies pain Ears, nose, mouth and throat: Denies headache, Denies sore throat Cardiovascular: Denies chest pain, Denies shortness of breath Respiratory: As noted in HPI mostly cough wheezing shortness of breath Gastrointestinal: Denies abdominal pain, Denies diarrhea, Denies nausea, Denies vomiting Genitourinary: Denies dysuria, Denies hematuria Musculoskeletal: Negative. Integumentary: Denies pruritus, Denies rash Neurological: Reports weakness, Denies numbness Psychiatric: Denies anxiety, Denies depression Endocrine: Denies fatigue, Denies weight change Past Medical History Past Medical History: Asthma, COPD, Deep Vein Thrombosis (DVT), Osteoarthritis (OA), Pneumonia, Pulmonary Embolus (PE) Additional Past Medical History / Comment(s): CROHNS WITH OSTOMY - hx DVT and PE after Ileosotomy surgery, hx migraines, hx ulcer, hx anemia, hx pneumonia multiple times, History of Any Multi-Drug Resistant Organisms: None Reported Past Surgical History: Appendectomy, Back Surgery, Hysterectomy, Joint Replacement, Orthopedic Surgery Additional Past Surgical History / Comment(s): Ileostomy surgery, neuroma removed from bilateral feet, left wrist surgery, sinus surgery, bilateral cataracts, REVISION OF ILEOSTOMY to the right side ,neck fusion 04-20-21,lt knee replaced,lt shoulder surg, bladder suspension surgery, Past Anesthesia/Blood Transfusion Reactions: Previous Problems w/ Anesthesia, Motion Sickness Additional Past Anesthesia/Blood Transfusion Reaction / Comment(s): Difficulty waking up from anesthesia, has woken up during surgeries Past Psychological History: No Psychological Hx Reported Smoking Status: Current every day smoker Past Alcohol Use History: Occasional - Past Family History Mother Family Medical History: No Reported History Father Family Medical History: Diabetes Mellitus Medications and Allergies Home Medications Medication Instructions Recorded Confirmed Type Ergocalciferol (Vitamin D2) 1,250 mcg PO SA 07/31/23 07/31/23 History [Drisdol (50,000 Iu)] Fluticasone Propion/Salmeterol 1 puff PO RT-BID 07/31/23 07/31/23 History [Advair 250-50 Diskus] methylPREDNISolone Dose Pack See Taper PO DIRECTED 07/31/23 07/31/23 History [Medrol Dose Pack] Allergies Allergy/AdvReac Type Severity Reaction Status Date / Time codeine Allergy Severe Swelling Verified 07/31/23 09:27 and itching Penicillins Allergy Severe Swelling Verified 07/31/23 09:27 of throat, Rash/Hives, Itching hydromorphone HCl AdvReac Hallucinati Verified 07/31/23 09:27 [From Dilaudid] ons Physical Exam Vitals: Vital Signs Temp Pulse Resp BP Pulse Ox 07/31/23 16:01 95 07/31/23 16:00 97.9 F 96 20 133/81 93 L 07/31/23 15:51 79 07/31/23 15:40 78 07/31/23 15:28 98 19 117/75 94 L 07/31/23 14:13 96 17 138/84 94 L 07/31/23 13:05 90 20 122/81 94 L 07/31/23 12:04 98.3 F 96 21 138/89 95 07/31/23 11:08 97 19 115/85 94 L 07/31/23 10:28 96 20 119/81 94 L 07/31/23 09:50 98 07/31/23 09:39 22 07/31/23 09:34 91 07/31/23 09:20 98.3 F 88 24 143/92 95 07/31/23 08:59 97.8 F 124 H 32 H 156/81 93 L Intake and Output 07/31/23 07/31/23 07/31/23 06:59 14:59 22:59 Other: Weight 45.359 kg Physical Exam: Revealed 72-year-old female in no distress Head: Atraumatic, normocephalic HEENT:[Neck is supple.] [No neck masses.] [No thyromegaly.] [No JVD.] Chest: [Diminished breath sound bilaterally wheezing on forced expiratory maneuver. Cardiac Exam: [Normal S1 and S2, no S3 gallop, no murmur.] Abdomen: [Soft, nontender, no megaly, no rebound, no guarding, normal bowel sounds.] Extremities: [No clubbing, no edema, no cyanosis.] Neurological Exam: [No focal neurologic deficit.] Alert and oriented 3. Psychiatric: Normal mood affect and normal mental status examination. Skin: No rashes Results - Laboratory Findings CBC and BMP: 07/31/23 09:19 07/31/23 09:19 PT/INR, D-dimer PT 9.6 sec (10.0-12.5) L 07/31/23 09:19 INR 0.8 (<1.2) 07/31/23 09:19 Abnormal lab findings: Abnormal Labs 07/31/23 07/31/23 07/31/23 09:19 09:19 09:19 WBC 12.3 H Hgb 17.2 H Hct 50.9 H Neutrophils # 9.3 H PT 9.6 L Carbon Dioxide 17 L BUN 19 H Glucose 125 H Plasma Lactic Acid Michael Calcium 10.6 H AST 40 H ALT 35 H 07/31/23 09:19 WBC Hgb Hct Neutrophils # PT Carbon Dioxide BUN Glucose Plasma Lactic Acid Michael 3.5 H* Calcium AST ALT - Diagnostic Findings Chest x-ray: image reviewed (As noted in HPI mostly consistent with COPD no evidence of infiltrate) Assessment and Plan Assessment: Impression: Acute exacerbation of COPD Acute purulent tracheobronchitis History of DVT History of pulmonary embolism History of Crohn's disease Tobacco dependence syndrome Recommendation: Admit patient to regular medical floor Continue oxygen Start patient on DuoNeb updrafts 4 times a day and when necessary Solu-Medrol 60 mg IV push every 6 hours Symbicort 160/4.5, 2 puffs twice a day Doxycycline 100 mg by mouth twice a day DVT prophylaxis/Lovenox GI prophylaxis/protonix Will continue to follow Time with Patient: Greater than 30
[2023-07-31] MEDS: PANTOPRAZOLE 40 MG TABLET PO SCH (16:49)
[2023-07-31] MEDS: ENOXAPARIN 40 MG/0.4 ML SYRINGE SQ SCH (16:49)
[2023-07-31] MEDS: methylPREDNISolone SOD SUCCI 125 MG/2 ML VIAL IV SCH (17:04)
[2023-07-31] MEDS ORDERED: MAGNESIUM SULFATE-D5W PMX 1 GM in DEXTROSE/WATER 1 100ML.BAG IVPB ONE (17:16)
[2023-07-31] MEDS: DOXYCYCLINE 100 MG CAP PO SCH (20:54)
[2023-07-31] MEDS: guaiFENesin 600 MG TABLET.ER PO SCH (20:54)
[2023-07-31 21:03] VITALS: TEMP 97.6
[2023-07-31] MEDS: SYMBICORT 160-4.5 MCG INHALER INHALATION SCH (21:04)
[2023-08-01] MEDS: methylPREDNISolone SOD SUCCI 125 MG/2 ML VIAL IV SCH ×2 (00:24→05:40)
[2023-08-01] MEDS: ACETAMINOPHEN TAB 325 MG TAB PO PRN (03:49)
[2023-08-01] MEDS: guaiFENesin 600 MG TABLET.ER PO SCH (08:16)
[2023-08-01] MEDS: PANTOPRAZOLE 40 MG TABLET PO SCH (08:16)
[2023-08-01] MEDS: DOXYCYCLINE 100 MG CAP PO SCH (08:16)
[2023-08-01] MEDS: ENOXAPARIN 40 MG/0.4 ML SYRINGE SQ SCH (09:29)
[2023-08-01] MEDS: IPRATROPIUM-ALBUTEROL 3 ML NEB INHALATION SCH ×2 (09:31→11:35)
[2023-08-01] MEDS: SYMBICORT 160-4.5 MCG INHALER INHALATION SCH (09:31)
[2023-08-01 11:56] VITALS: BP 119/73; PULSE 99; RESP 19
--- NOTE | 2023-08-01 12:43 | P.PN ---
Subjective Progress Note Date: 08/01/23 This is a 72-year-old female, known history of COPD, tobacco dependence syndrome, continues to smoke on a regular basis, patient is not O2 dependent and not prednisone dependent, she is known to have history of Crohn's disease with ostomy, history of DVT, patient presented to the ER with a few days' history of cough wheezing and shortness of breath. Cough is described as productive with yellow phlegm, no fever no chills no hemoptysis and no chest pain. Chest x-ray on admission showed no evidence of infiltrate. Patient tested negative for COVID-19 infection she also tested negative for influenza and for RSV, her O2 saturation was 94% on room air, 95% on 2 L nasal cannula. Patient was admitted considering his significant pulmonary symptoms, and this consult was initiated. I saw this patient in the ER, recommended Solu-Medrol, DuoNeb updrafts 4 times a day and when necessary, doxycycline, and methylprednisolone. The patient is seen today 08/01/2023 in follow-up in the emergency department. She is currently sitting up in a stretcher. Awake and alert in no acute distress. Feeling quite a bit better. Nearly back to her baseline. She denies any worsening shortness of breath, cough or congestion. No fever or chills. She is continued on DuoNeb inhalations, Symbicort, Solu-Medrol. Empiric antibiotics in the form of Vibramycin. Lovenox for DVT prophylaxis. Mucinex as needed. Objective - Vital Signs Vital signs: Vital Signs Temp 97.6 F 08/01/23 06:12 Pulse 99 08/01/23 11:00 Resp 19 08/01/23 11:00 BP 119/73 08/01/23 11:00 Pulse Ox 95 08/01/23 11:00 FiO2 Intake & Output 07/31/23 08/01/23 08/01/23 18:59 06:59 18:59 Weight 45.359 kg - Exam GENERAL EXAM: Alert, pleasant 72-year-old female, on room air, comfortable in no apparent distress. HEAD: Normocephalic. EYES: Normal reaction of pupils, equal size. NOSE: Clear with pink turbinates. THROAT: No erythema or exudates. NECK: No masses, no JVD. CHEST: No chest wall deformity. LUNGS: Equal air entry with faint end expiratory wheeze, diminished. CVS: S1 and S2 normal with no audible murmur, regular rhythm. ABDOMEN: No hepatosplenomegaly, normal bowel sounds, no guarding or rigidity. SPINE: No scoliosis or deformity SKIN: No rashes CENTRAL NERVOUS SYSTEM: No focal deficits, tone is normal in all 4 extremities. EXTREMITIES: There is no peripheral edema. No clubbing, no cyanosis. Peripheral pulses are intact. - Labs CBC & Chem 7: 07/31/23 09:19 07/31/23 09:19 Assessment and Plan Assessment: Acute exacerbation of chronic obstructive pulmonary disease secondary to acute purulent tracheobronchitis History of DVT History of pulmonary embolism History of Crohn's disease Tobacco dependence syndrome Rosa: The patient was seen and evaluated Medications reviewed Improved and nearly back to her baseline Does not qualify for home oxygen Cleared for discharge from the pulmonary standpoint Continue her home pulmonary medications Complete a prednisone taper Complete a course of doxycycline Recommend follow-up in our office in 1 week I have personally seen and examined the patient, performed the documentation and the assessment and plan as written. Number of minutes spent on the visit: 10.
--- NOTE | 2023-08-01 14:26 | P.HPIM ---
History of Present Illness H&P Date: 08/01/23 History of Physical and Discharge Summary This is a pleasant 72-year-old female with past medical history significant for COPD, asthma, ongoing nicotine dependence, Crohn's disease with ostomy, history of PE, DVT and multiple other medical issues presented to the ER with worsening shortness of breath, wheezing and cough. Reports symptoms began last Sunday with nasal drainage and productive cough with yellow brownish phlegm. By Sunday symptoms had worsened into Sunday and Sunday shortness of breath increased accompanied by wheezing and scratchy throat. Denies fevers or chills. Patient received a tetanus shot last week as well as attempted a Medrol Dosepak. Tested negative for influenza, RSV, Covid. Chest x-ray reported no acute process. Nebulized bronchodilators, IV steroids, doxycycline initiated in the ER by pulmonary yesterday. Significant clinical improvement. Patient denies shortness of breath,positive scratchy throat with phlegm now whitish in color. Afebrile, WBC 12.3. Hemoglobin 17.2, platelets 265, INR 0.8. Electrolytes within normal limits, bicarb 17, BUN 19, creatinine 0.89D acid 3.5 admission, received IV fluids and currently down to 2.UA negative. Review of Systems Review of Systems All systems: negative Constitutional: Denies chills, Denies fever. Eyes: denies blurred vision, denies pain Ears, nose, mouth and throat: Denies headache, scratchy throat, nasal drainage Cardiovascular: Denies chest pain, + shortness of breath Respiratory: Productive cough, previously wheezing Gastrointestinal: Denies abdominal pain, Denies diarrhea, Denies nausea, Denies vomiting Genitourinary: Denies dysuria, Denies hematuria Musculoskeletal: Denies muscle weakness, denies myalgias Integumentary: Denies pruritus, Denies rash Neurological: Reports weakness, Denies numbness Psychiatric: Denies anxiety, Denies depression Endocrine: Denies weight change Past Medical History Past Medical History: Asthma, COPD, Deep Vein Thrombosis (DVT), Osteoarthritis (OA), Pneumonia, Pulmonary Embolus (PE) Additional Past Medical History / Comment(s): CROHNS WITH OSTOMY - hx DVT and PE after Ileosotomy surgery, hx migraines, hx ulcer, hx anemia, hx pneumonia multiple times, History of Any Multi-Drug Resistant Organisms: None Reported Past Surgical History: Appendectomy, Back Surgery, Hysterectomy, Joint Replacement, Orthopedic Surgery Additional Past Surgical History / Comment(s): Ileostomy surgery, neuroma removed from bilateral feet, left wrist surgery, sinus surgery, bilateral cataracts, REVISION OF ILEOSTOMY to the right side ,neck fusion 04-20-21,lt knee replaced,lt shoulder surg, bladder suspension surgery, Past Anesthesia/Blood Transfusion Reactions: Previous Problems w/ Anesthesia, Motion Sickness Additional Past Anesthesia/Blood Transfusion Reaction / Comment(s): Difficulty waking up from anesthesia, has woken up during surgeries Past Psychological History: No Psychological Hx Reported Smoking Status: Current every day smoker Past Alcohol Use History: Occasional - Past Family History Mother Family Medical History: No Reported History Father Family Medical History: Diabetes Mellitus Medications and Allergies Home Medications Medication Instructions Recorded Confirmed Type Ergocalciferol (Vitamin D2) 1,250 mcg PO SA 07/31/23 07/31/23 History [Drisdol (50,000 Iu)] Fluticasone Propion/Salmeterol 1 puff PO RT-BID 07/31/23 07/31/23 History [Advair 250-50 Diskus] Acetaminophen Tab [Tylenol] 650 mg PO Q4HR PRN tab 08/01/23 Rx Doxycycline [Vibramycin] 100 mg PO BID 7 Days #14 cap 08/01/23 Rx Pantoprazole Sodium [Protonix] 40 mg PO DAILY #30 tab 08/01/23 Rx guaiFENesin [Mucinex] 600 mg PO Q12HR tab 08/01/23 Rx predniSONE 10 mg PO DIRECTED #30 tab 08/01/23 Rx Allergies Allergy/AdvReac Type Severity Reaction Status Date / Time codeine Allergy Severe Swelling Verified 07/31/23 09:27 and itching Penicillins Allergy Severe Swelling Verified 07/31/23 09:27 of throat, Rash/Hives, Itching hydromorphone HCl AdvReac Hallucinati Verified 07/31/23 09:27 [From Dilaudid] ons Physical Exam Vitals: Vital Signs Temp Pulse Resp BP Pulse Ox 08/01/23 11:00 99 19 119/73 95 08/01/23 09:41 98 18 08/01/23 09:35 93 L 08/01/23 09:31 92 18 08/01/23 08:14 81 18 120/82 95 08/01/23 06:12 97.6 F 83 19 127/80 92 L 08/01/23 04:30 90 18 127/80 95 08/01/23 03:00 82 18 124/76 95 08/01/23 00:30 95 18 116/74 96 07/31/23 23:30 96 19 122/76 93 L 07/31/23 21:30 88 19 123/78 91 L 07/31/23 21:21 92 07/31/23 21:05 81 07/31/23 20:56 97.6 F 99 24 123/78 93 L 07/31/23 20:30 85 20 123/77 93 L 07/31/23 19:30 82 20 130/89 96 07/31/23 18:12 98.3 F 100 20 115/69 94 L 07/31/23 17:03 96 19 118/88 94 L 07/31/23 16:01 95 07/31/23 16:00 97.9 F 96 20 133/81 93 L 07/31/23 15:51 79 07/31/23 15:40 78 07/31/23 15:28 98 19 117/75 94 L 07/31/23 14:13 96 17 138/84 94 L General: well nourished, well developed, NAD. Vitals reviewed Eyes: PERRL, EOMI, conjunctiva normal HENT: normocephalic, mucus membranes moist Neck: supple, no JVD Lungs: normal respiratory effort, equal air entry,CTA, no wheezes or rales CV: Regular rate and rhythm, no murmur. Peripheral pulses 2+ Abdomen: soft, nondistended, no organomegaly Skin: warm and dry. Neuro: A&Ox3, normal mood and affect Results CBC & Chem 7: 07/31/23 09:19 07/31/23 09:19 Assessment and Plan Assessment: Acute COPD exacerbation secondary to acute purulent tracheobronchitis History of asthma and COPD Nicotine dependence History of PE History of DVT History of Crohn's disease Plan: Continue on current medication regime ,monitoring and symptomatic treatment. Significant clinical improvement on Solu-Medrol, nebulized bronchodilators, IV steroids and doxycycline. Maintaining O2 sats of 93% on 1 L nasal cannula. Staff reports patient desatted to 88% on room air ambulating back from bathroom. Patient will require O2 at discharge, to be arranged by foster care case manager, DAE slip signed. Patient will be discharged home today in a stable condition with guarded prognosis pending final DC recommendations and clearance per pulmonary and arrangement of O2. Discharge Medication List Ergocalciferol (Vitamin D2) [Drisdol (50,000 Iu)] 1,250 mcg PO SA 07/31/23 [History] Fluticasone Propion/Salmeterol [Advair 250-50 Diskus] 1 puff PO RT-BID 07/31/23 [History] Acetaminophen Tab [Tylenol] 650 mg PO Q4HR PRN tab 08/01/23 [Rx] Doxycycline [Vibramycin] 100 mg PO BID 7 Days #14 cap 08/01/23 [Rx] Pantoprazole Sodium [Protonix] 40 mg PO DAILY #30 tab 08/01/23 [Rx] guaiFENesin [Mucinex] 600 mg PO Q12HR tab 08/01/23 [Rx] predniSONE 10 mg PO DIRECTED #30 tab 08/01/23 [Rx] The impression and plan of care has been dictated as directed. : I performed a history and examination of this patient, discussed the same with the dictator. I agree with the dictator's note ,documented as a scribe. Any additional findings or plans will be noted.
== END 2023-08-01 11:39 | disposition home or self-care (01) ==
LOC: EC 08:58 → 6NMEDSUR 12:13
PROVIDERS: ADMIT Family Medicine; ATTEND Family Medicine
DX: J44.1 Chronic obstructive pulmonary disease with (acute) exacerbation (principal); J96.01 Acute respiratory failure with hypoxia; F17.200 Nicotine dependence, unspecified, uncomplicated; Z20.822 Contact with and (suspected) exposure to COVID-19; Z86.718 Personal history of other venous thrombosis and embolism; Z86.711 Personal history of pulmonary embolism; Z87.19 Personal history of other diseases of the digestive system; Z79.51 Long term (current) use of inhaled steroids; Z79.52 Long term (current) use of systemic steroids; Z79.899 Other long term (current) drug therapy; Z88.0 Allergy status to penicillin; Z88.5 Allergy status to narcotic agent
CPT/HCPCS: 96376 ×2; 96361; 96365; 96372; 96375; 99285; 36415; 94640 ×4; 94760; 93005; 83880; 80053; 83605; 83735; 84484; 85025; 85610; 85730; 87636; 71046; G0378 ×2; J2930 ×2; J1650; J3475

== ENCOUNTER → 2023-11-21 | Outpatient (CLI) | payer MEDICARE, BC ==
--- NOTE | 2023-11-22 14:18 | MM ---
Reason for Exam: Screening (asymptomatic). Last mammogram was performed 1 year(s) and 1 month(s) ago. Patient History: Menarche at age 9. First Full-Term at age 17. Left ovary removed at age 34. Right ovary removed at age 34. Hysterectomy at age 34. Postmenopausal. Estrogen for 1 year, 8 months, until age 46. Maternal aunt had breast cancer. Maternal aunt had breast cancer. Niece (great) had breast cancer. Risk Values: Janel 5 year model risk: 1.4%. NCI Lifetime model risk: 3.4%. Prior Study Comparison: 07/05/2020 Bilateral Screening Mammogram, [facility]. 10/27/2021 Bilateral Screening Mammogram, [facility]. 10/30/2022 Bilateral MG 3D screening mammo w/cad, [facility]. Tissue Density: The breasts are almost entirely fatty. Findings: Analyzed By CAD. Right breast: There is no suspicious group of microcalcifications or new suspicious mass. Left breast: There is no suspicious group of microcalcifications or new suspicious mass. Overall Assessment: Negative, BI-RAD 1 Management: Screening Mammogram of both breasts in [address] [facility] will attempt to contact patient to return for supplemental views and ultrasound if indicated. Patient should continue monthly self-breast exams. A clinical breast exam by your physician is recommended on an annual basis. This exam should not preclude additional follow-up of suspicious palpable abnormalities. Note on Janel scores and lifetime risk: 1. A Janel score greater than 3% is considered moderate risk. If this is the case, consider specialist referral to assess eligibility for a risk reducing agent. 2. If overall lifetime risk for the development of breast cancer is 20% or higher, the patient may qualify for future screening with alternating mammogram and breast MRI. Electronically signed and approved by: Rafael Mejia DO
== END | disposition home or self-care (01) ==
LOC: RADMAMWWP 08:39
PROVIDERS: ATTEND Family Medicine
DX: Z12.31 Encounter for screening mammogram for malignant neoplasm of breast (principal); Z80.3 Family history of malignant neoplasm of breast; Z78.0 Asymptomatic menopausal state
CPT/HCPCS: 77063; 77067

== ENCOUNTER → 2024-01-20 | Outpatient (CLI) | payer MEDICARE, BC ==
--- NOTE | 2024-01-20 09:07 | MR ---
MRI thoracic spine without contrast HISTORY: Myelopathy or radiculopathy. COMPARISON: None. TECHNIQUE: Multiecho multiplanar images of the thoracic spine were obtained without contrast. FINDINGS: The thoracic vertebral segments are normal in height and alignment and there is no fracture or sublux ation. There is no significant degenerative disease or disc herniation. There is no thoracic spinal stenosis. Thoracic cord is normal in size and signal intensity. The neural foramina are patent. The paraspinal soft tissues are unremarkable. IMPRESSION: No significant abnormality seen
== END | disposition home or self-care (01) ==
LOC: RADMRIMAIN 07:57
PROVIDERS: ATTEND Orthopaedic Surgery Orthopaedic Surgery of the Spine
DX: M47.24 Other spondylosis with radiculopathy, thoracic region (principal); M41.55 Other secondary scoliosis, thoracolumbar region; M79.10 Myalgia, unspecified site; M43.12 Spondylolisthesis, cervical region; M50.122 Cervical disc disorder at C5-C6 level with radiculopathy; M50.123 Cervical disc disorder at C6-C7 level with radiculopathy; M48.02 Spinal stenosis, cervical region; M50.121 Cervical disc disorder at C4-C5 level with radiculopathy; M79.12 Myalgia of auxiliary muscles, head and neck; F17.218 Nicotine dependence, cigarettes, with other nicotine-induced disorders
CPT/HCPCS: 72146

== ENCOUNTER → 2024-01-23 | Outpatient (CLI) | payer MEDICARE, BC ==
[2024-01-23 09:18] VITALS: BP 124/77; PULSE 93; RESP 16
--- NOTE | 2024-01-23 15:13 | P.PAINPG ---
PQRS Measure Charge Sheet Comment: HISTORY OF PRESENT ILLNESS: A 73 yr old female as a referral from Dr Vasquez presents today w severe and chronic mid back pain > 6 mo secondary to DDD, spondylosis and facet arthropathy without myelopathy for evaluation. Pt states pain level is provoked at 9 /10 in intensity, constant, localized in the mid back, predominantly axial, sore in character w occasional shooting pain between the shoulders. Pain is provoked by bending and over activity. Pain is alleviated by PT x 4 wks which ended in December 2023, physician guided home exercises/ stretches every other day since mid December 2023. heat, medication s ([place] 5/325mg, Lyrica 100mg), topical Harsh-Greer, repositioning and rest . Oswestry axial pain score at 26. PMH: OA, Asthma, COPD, DVT, PE, GERD, Crohn's Disease, Migraines PSH: Cervical Fusion (2020), Ostomy (Crohn's Disease), Ileostomy (PE, DVT), Appendectomy, Lumbar Surgery, Hysterectomy, L Knee Replacement, L Shoulder Surgery, BL Foot Neuroma Excision, L Wrist Surgery, Sinus SUrgery, BL Cataract Extractions, Bladder Suspension SH: Daily tobacco use, Occasional ETOH use, No illicit drug use FH: Mo- No Reported History. Fa- DM All: See list Meds: See list REVIEW OF ORGAN SYSTEMS: CONSTITUTIONAL: No fevers or chills. No recent weight loss. NEUROLOGICAL: + numbness and tingling along the distal extremities. No seizure disorders or headaches. MUSCULOSKELETAL: + pain PSYCHIATRIC: Denies current depression or suicidal thoughts. Physical Examinations : Constitutional : Cooperative , not in acute distress . Neurologic : Cranial nerve II to XII intact. No focal neurological deficits. Psychiatric : alert & oriented x 3. Matching mood & appropriate affect. Judgment & insight intact. Musculoskeletal : Cervical Spine Motor strength in the deltoid and biceps: Normal right side. Normal Left side Motor strength biceps and the wrist extensors: Normal right side . Normal left side Motor strength in the triceps muscle: Normal right side. Normal left side Deep tendon reflexes: Normal at the biceps. Normal at Brachioradialis. Normal at triceps Vertebral body tenderness to deep palpation over Cervical facet loading test: positive bilaterally Spurling test: positive bilaterally Neck distraction test: positive bila terally Giovanny sign: positive bilaterally Thoracic spine +kyphosis Vertebral body TTP over T6 [place] test positive BL T6-7 Lumbar spine Motor strength lower extremities ,thigh and legs 5/5 Right side , 5/5 Left side Deep tendon reflexes : Normal Knee Jerk. Normal Ankle Jerk Vertebral body tenderness over [place] Test positive Lumbar facet Loading Test: positive Right / positive Left Range of motion of the lumbar spine Flexion 30 degrees, extension 10 degrees Straight Leg Raise test: Left/ Right positive at degrees Brody test: positive right / positive left. Severe tenderness over the Sacroiliac joint on the Right / Left sides Gaenslen test: positive bilaterally Seated flexion test: positive bilaterally. Sacral spine : Severe tenderness over the Sacroiliac joint: right side / left side Range of motion: Flexion of the lumbar spine <60 degrees Range of motion: Extension of the lumbar spine <20 degrees Gaenslen's Test positive Brody test: positive right side / left side Thigh Thrust Test Sacral Thrust Test Imaging: MRI thoracic spine from 01/20/24 reviewed Assessment/ Plan : Thoracic DDD Recommendation of KEVIN T6-T7 #1. May need a series of injections for optimal pain relief. Risks, benefits of procedure discussed and patient verbalized understanding. Admits to anti- coagulant use or medical history of diabetes. Protocol for discontinuation/ continuation of medications toma procedure discussed. All questions answered. I have spent greater than 30 minutes on patient care today. Dr Escudero was available by phone for the evaluation of this patient. The time was used to review the medical records including relevant urine studies and Prescription history (MAPs), review of the available imaging, evaluation and examination of the patient, coordination of care with the medical staff and if applicable referring physicians, as well as creation of the medical record PQRS Narrative: Smoking Status Former smoker Home Medications: Ambulatory Orders Ergocalciferol (Vitamin D2) [Drisdol (50,000 Iu)] 1,250 mcg PO SA 07/31/23 Fluticasone Propion/Salmeterol [Advair 250-50 Diskus] 1 puff PO RT-BID 07/31/23 Acetaminophen Tab [Tylenol] 650 mg PO Q4HR PRN tab 08/01/23 Doxycycline [Vibramycin] 100 mg PO BID 7 Days #14 cap 08/01/23 Pantoprazole Sodium [Protonix] 40 mg PO DAILY #30 tab 08/01/23 guaiFENesin [Mucinex] 600 mg PO Q12HR tab 08/01/23 predniSONE 10 mg PO DIRECTED #30 tab 08/01/23 Controlled Substance Measures - Controlled Substance Measures Is patient prescribed a controlled substance at discharge?: Yes When asked, does pt state using other controlled substances?: Yes If prescribed controlled substance>3 days was MAPS reviewed?: Prescribed <3 Days
== END ==
LOC: PNWHC3 08:04
PROVIDERS: ATTEND Specialist
DX: M54.12 Radiculopathy, cervical region (principal); M51.34 Other intervertebral disc degeneration, thoracic region; Z87.891 Personal history of nicotine dependence; Z88.5 Allergy status to narcotic agent; Z88.0 Allergy status to penicillin
CPT/HCPCS: 99211

== ENCOUNTER 2024-02-14 07:33 | Day surgery (SDC) | payer MEDICARE, BC ==
[2024-02-14] MEDS ORDERED: LACTATED RINGERS 1,000 ML IV SCH (07:35)
[2024-02-14 07:59] VITALS: TEMP 98
[2024-02-14] MEDS ORDERED: IOPAMIDOL M300 15ML VIAL ONE (08:20)
[2024-02-14] MEDS ORDERED: methylPREDNISolone ACETATE 80 MG/ML 1 ML VIAL ONE (08:20)
[2024-02-14] MEDS ORDERED: ROPIVACAINE 5MG/ML 20ML VIAL ONE (08:20)
--- NOTE | 2024-02-14 08:52 | P.PCN ---
Description of Procedure: PREOPERATIVE DIAGNOSIS: 1- Thoracic Degenerative Disc Diseases 2-Thoracic spondylosis with Facet arthropathy without myelopathy. 3-Thoracic spinal stenosis POSTOPERATIVE DIAGNOSIS: 1-Thoracic degenerative disc disease. 2-Thoracic spondylosis with facet arthropathy without myelopathy. 3-Thoracic spinal stenosis. PROCEDURE Injection of radio contrast material into T6-7 interspace, interpretation of epidurogram, injection of steroid at T6-7 epidural space under fluoroscopic guidance. ANESTHESIA: Lidocaine 1% subcutaneously. In OR continuous pulse ox, EKG, blood pressure and verbal communication was maintained with the patient. EBL: Minimal PROCEDURE INDICATION: Before the procedure were discussed with the patient det emmanuel procedure, alternatives, complications including infection, bleeding, nerve damage, paralysis all of which could be permanent. Patient understands and all questions were answered. PROCEDURE DESCRIPTION : After getting consent, patient in OR in prone position. Back was prepped with chlorhexidine and draped in sterile fashion. After injecting 10 mL of 1% lidocaine subcutaneously, a 20-gauge Tuohy needle was introduced at T6-7 interspace with loss of resistance technique using a syringe filled with air. Negative CSF, negative blood, negative paresthesia. Needle position was confirmed with AP and lateral view of the fluoroscope. After repeat negative aspiration 2 mL of Omnipaque 200 water soluble contrast was injected. Contrast was noted in the epidural space. No contrast was noted into intrathecal or intravascular space. After repeat negative aspiration 5 mL solution was injected intermittently which consists of 4 mL of preservative-free normal saline mixed with 1 mL of 80 mg Depo-Medrol. Needle was withdrawn intact. Skin was cleansed and Band-Aids was applied. DISPOSITION / PLANS: The patient tolerated the procedure well. No complication. The patient was placed in a supine position and transferred to the recovery area in a stable condition for observation. There was no evidence of lower extremity motor or sensory deficit after the procedure. Patient was discharged from the recovery room after meeting discharge criteria. Home discharge instructions were given to the patient by the staff. The patient was reexamined prior to discharge. The patient will schedule a follow up in the clinic in 2-4 weeks.
[2024-02-14 09:05] VITALS: BP 126/86; PULSE 88; RESP 20
--- NOTE | 2024-02-14 09:11 | FL ---
EXAMINATION TYPE: FL guided pain mgmt statistic Intraoperative/procedural fluoroscopic services were provided. Total fluoroscopy time is 20 5. seconds with a total of 3 submitted images to PACS. Please see the operative/procedural note for further details. DAP: [id number] mGym2
== END 2024-02-14 09:15 | disposition home or self-care (01) ==
LOC: ORPAIN 07:33
PROVIDERS: ATTEND Pain Medicine Interventional Pain Medicine
DX: M47.814 Spondylosis without myelopathy or radiculopathy, thoracic region (principal); M48.04 Spinal stenosis, thoracic region; M51.34 Other intervertebral disc degeneration, thoracic region; I10 Essential (primary) hypertension; Z88.0 Allergy status to penicillin; Z88.5 Allergy status to narcotic agent; Z88.8 Allergy status to other drugs, medicaments and biological substances; Z79.82 Long term (current) use of aspirin
CPT/HCPCS: 62321; Q9967; J2795; J1010

== ENCOUNTER → 2024-03-05 | Outpatient (CLI) | payer MEDICARE, BC ==
[2024-03-05 08:43] VITALS: BP 117/80; PULSE 87; RESP 16
--- NOTE | 2024-03-05 14:01 | P.PAINPG ---
PQRS Measure Charge Sheet Comment: HISTORY OF PRESENT ILLNESS: A 73 yr old female presents today w severe and chronic mid back pain > 6 mo secondary to DDD, spondylosis and facet arthropathy without myelopathy for evaluation s/p KEVIN T6-T7 #1. Pt states she experienced 0 % pain relief x 3 wks s/p procedure. Pt states pain level is provoked at 9 /10 in intensity, constant, localized in the mid back, predominantly axial, sore in character w occasional shooting pain between the shoulders. Pain is provoked by bending and over activity. Pain is alleviated by PT x 4 wks which ended in December 2023, physician guided home exercises/ stretches every other day since mid December 2023. heat, medications, topical, repositioning and rest . Oswestry axial pain score at 26. Interventional procedures include KEVIN T6-T7 x1 Medications include [place] 5/325mg, Lyrica 100mg, Harsh-Greer REVIEW OF ORGAN SYSTEMS: CONSTITUTIONAL: No fevers or chills. No recent weight loss. NEUROLOGICAL: + numbness and tingling along the distal extremities. No seizure disorders or headaches. MUSCULOSKELETAL: + pain PSYCHIATRIC: Denies current depression or suicidal thoughts. Physical Examinations : Constitutional : Cooperative , not in acute distress . Neurologic : Cranial nerve II to XII intact. No focal neurological deficits. Psychiatric : alert & oriented x 3. Matching mood & appropriate affect. Judgment & insight intact. Musculoskeletal : Cervical Spine Motor strength in the deltoid and biceps: Normal right side. Normal Left side Motor strength biceps and the wrist extensors: Normal right side . Normal left side Motor strength in the triceps muscle: Normal right side. Normal left side Deep tendon reflexes: Normal at the biceps. Normal at Brachioradialis. Normal at triceps Vertebral body tenderness to deep palpation over Cervical facet loading test: positive bilaterally Spurling test: positive bilaterally Neck distraction test: positive bilaterally Giovanny sign: positive bilaterally Thoracic spine +kyphosis Vertebral body TTP over T6 [place] test positive BL T6-7 Taut bands w twitch response over BL T3-T10 Lumbar spine Motor strength lower extremities ,thigh and legs 5/5 Right side , 5/5 Left side Deep tendon reflexes : Normal Knee Jerk. Normal Ankle Jerk Vertebral body tenderness over [place] Test positive Lumbar facet Loading Test: positive Right / positive Left Range of motion of the lumbar spine Flexion 30 degrees, extension 10 degrees Straight Leg Raise test: Left/ Right positive at degrees Brody test: positive right / positive left. Severe tenderness over the Sacroiliac joint on the Right / Left sides Gaenslen test: positive bilaterally Seated flexion test: positive bilaterally. Sacral spine : Severe tenderness over the Sacroiliac joint: right side / left side Range of motion: Flexion of the lumbar spine <60 degrees Range of motion: Extension of the lumbar spine <20 degrees Gaenslen's Test positive Brody test: positive right side / left side Thigh Thrust Test Sacral Thrust Test Imaging: MRI thoracic spine from 01/20/24 reviewed Assessment/ Plan : Thoracic DDD Recommendation of BL TPIs T3-T10 #1. May need a series of injections for optimal pain relief. Risks, benefits of procedure discussed and patient verbalized understanding. Admits to anti- coagulant use or medical history of diabetes. Protocol for discontinuation/ continuation of medications toma procedure discussed. All questions answered. I have spent greater than 30 minutes on patient care today. Dr Escudero was available by phone for the evaluation of this patient. The time was used to review the medical records including relevant urine studies and Prescription history (MAPs), review of the available imaging, evaluation and examination of the patient, coordination of care with the medical staff and if applicable referring physicians, as well as creation of the medical record PQRS Narrative: Smoking Status Former smoker Hx Alcohol Use (MH) Yes Home Medications: Ambulatory Orders Ergocalciferol (Vitamin D2) [Drisdol (50,000 Iu)] 1,250 mcg PO SA 07/31/23 diazePAM [Valium] 5 mg PO DAILY PRN 1 Days #2 tab 01/23/24 Aspirin [Adult Low Dose Aspirin EC] 81 mg PO DAILY 02/13/24 Cyanocobalamin [Vitamin B-12 Injection] 1 dose SQ Q30D 02/13/24 Fluticasone/Umeclidin/Vilanter [Trelegy Ellipta 100-62.5-25] 1 inhalation INHALATION DAILY PRN 02/13/24 HYDROcodone/APAP 5-325MG [[place] 5-325] 1 tab PO BID PRN 02/13/24 predniSONE 10 mg PO DIRECTED PRN 02/13/24 Controlled Substance Measures - Controlled Substance Measures Is patient prescribed a controlled substance at discharge?: No
== END ==
LOC: PNWHC3 08:27
PROVIDERS: ATTEND Specialist
DX: M51.34 Other intervertebral disc degeneration, thoracic region (principal); Z87.891 Personal history of nicotine dependence; Z88.5 Allergy status to narcotic agent; Z88.0 Allergy status to penicillin
CPT/HCPCS: 99211

== ENCOUNTER → 2024-04-10 | Outpatient (CLI) | payer MEDICARE, BC | LOC: PNWHC3 09:30 | PROVIDERS: ATTEND Specialist | CPT/HCPCS: 99211 ==

== ENCOUNTER 2024-12-31 16:28 | Inpatient (IN) | payer MEDICARE, BC ==
--- NOTE | 2024-12-31 17:48 | ED ---
General Adult HPI - General Chief complaint: Weakness Stated complaint: weakness Time Seen by Provider: 12/31/24 17:28 Source: patient Mode of arrival: ambulatory Limitations: no limitations - History of Present Illness Initial comments: Dictation was produced using [employer] dictation software. please excuse any grammatical, word or spelling errors. Chief Complaint: 74-year-old female presents to the emergency department with weak and dizziness History of Present Illness: Patient 74-year-old female she has history of COPD. She brought in by family member at the bedside. For the last several days patient has been having worsening weakness lives at home by herself. Since the last 2 or 3 days she has had multiple falls patient states that she has dizziness and vertigo. Seems to be exacerbated with exerting herself. Patient also reports exertional dyspnea. The ROS documented in this emergency department record has been reviewed and confirmed by me. Those systems with pertinent positive or negative responses have been documented in the HPI. All other systems are other negative and/or noncontributory. - Related Data Home Medications Medication Instructions Recorded Confirmed Ergocalciferol (Vitamin D2) 1,250 mcg PO SA 07/31/23 03/20/24 [Drisdol (50,000 Iu)] Aspirin [Adult Low Dose Aspirin EC] 81 mg PO DAILY 02/13/24 03/20/24 Cyanocobalamin [Vitamin B-12 1 dose SQ Q30D 02/13/24 03/20/24 Injection] Fluticasone/Umeclidin/Vilanter 1 inhalation INHALATION DAILY PRN 02/13/24 03/20/24 [Trelegy Ellipta 100-62.5-25] predniSONE 10 mg PO DIRECTED PRN 02/13/24 03/20/24 Previous Rx's Medication Instructions Recorded diazePAM [Valium] 5 mg PO DAILY PRN 1 Days #2 tab 01/23/24 HYDROcodone/APAP 5-325MG [[place] 1 tab PO DAILY PRN 1 Days #2 tab 03/12/24 5-325] Allergies Allergy/AdvReac Type Severity Reaction Status Date / Time codeine Allergy Severe Swelling Verified 12/31/24 16:34 and itching Penicillins Allergy Severe Swelling Verified 12/31/24 16:34 of throat, Rash/Hives, Itching hydromorphone HCl AdvReac Hallucinati Verified 12/31/24 16:34 [From Dilaudid] ons Review of Systems ROS Statement: Those systems with pertinent positive or pertinent negative responses have been documented in the HPI. ROS Other: All systems not noted in ROS Statement are negative. Past Medical History Past Medical History: Asthma, COPD, Deep Vein Thrombosis (DVT), Osteoarthritis (OA), Pneumonia, Pulmonary Embolus (PE) Additional Past Medical History / Comment(s): CROHNS WITH OSTOMY - hx DVT and PE after Ileosotomy surgery 1996, migraines, hx ulcer, anemia, pneumonia multiple times History of Any Multi-Drug Resistant Organisms: None Reported Past Surgical History: Appendectomy, Back Surgery, Cholecystectomy, Hysterectomy, Joint Replacement, Orthopedic Surgery Additional Past Surgical History / Comment(s): Ileostomy surgery, neuroma removed from bilateral feet, left wrist surgery, sinus surgery, bilateral cataracts, REVISION OF ILEOSTOMY to the right side, cervical fusion 04-20-21, Lt. TKA ,Lt shoulder surg, bladder suspension surgery Past Anesthesia/Blood Transfusion Reactions: Previous Problems w/ Anesthesia, Motion Sickness Additional Past Anesthesia/Blood Transfusion Reaction / Comment(s): Difficulty waking up from anesthesia, has woken up during surgeries Past Psychological History: No Psychological Hx Reported Smoking Status: Current every day smoker - Past Family History Mother Family Medical History: No Reported History General Exam - General Exam Comments Initial Comments: PHYSICAL EXAM: General Impression: Alert and oriented x3, not in acute distress HEENT: Normocephalic atraumatic, extra-ocular movements intact, pupils equal and reactive to light bilaterally, mucous membranes moist. Cardiovascular: Heart regular rate and rhythm Chest: Able to complete full sentences, no retractions, no tachypnea Abdomen: abdomen soft, non-tender, non-distended, no organomegaly Musculoskeletal: Pulses present and equal in all extremities, no peripheral edema Motor: no focal deficits noted Neurological: CN II-XII grossly intact, no focal motor or sensory deficits noted Skin: Intact with no visualized rashes Psych: Normal affect and mood Limitations: no limitations Course Vital Signs 12/31/24 12/31/24 12/31/24 16:30 18:00 20:03 Temperature 98.2 F 98.4 F Pulse Rate 91 Pulse Rate [ 82 Left Knit Tubing Dyer] Respiratory 20 20 20 Rate Blood Pressure 124/75 Blood Pressure 96/86 [Right Arm Sitting] Blood Pressure 99/71 [Right Arm Standing] Blood Pressure 115/72 [Right Arm Supine] O2 Sat by Pulse 96 97 Oximetry EKG Findings - EKG Comments: EKG Findings:: My EKG interpretation: Ventricular rate 89, sinus rhythm, NH 157, QRS 96, P QTc 444. No NH prolongation, no QTC prolongation, no ST or T-wave changes noted. Overall, this EKG is unremarkable Medical Decision Making - Medical Decision Making Was pt. sent in by a medical professional or institution (, PA, SUPERVISOR [employer]IT, urgent care, hospital, or prison...) When possible be specific @ -No Did you speak to anyone other than the patient for history (EMS, parent, family, police, friend...)? What history was obtained from this source @ -No Did you review nursing and triage notes (agree or disagree)? Why? @ -I reviewed and agree with nursing and triage notes Were old charts reviewed (outside hosp., previous admission, EMS record, old EKG, old radiological studies, urgent care reports/EKG's, prison records)? Report findings @ -No old charts were reviewed Differential Diagnosis (chest pain, altered mental status, abdominal pain women, abdominal pain men, vaginal bleeding, musculoskeletal, weakness, fever, dyspnea, syncope, headache, dizziness, GI bleed, back pain, seizure, CVA, palpatations, mental health)? @ -Differential Weakness: Hypoglycemia, shock, sepsis, hyponatremia, anemia, infection, KS, ETOH, adverse medicine reaction, overdose, stroke, this is not meant to be an all-inclusive list. EKG interpreted by me (3pts min.). @ -See above X-rays interpreted by me (1pt min.). @ -Chest x-ray and pelvis x-ray shows no acute processes CT interpreted by me (1pt min.). @ -Brain shows no bleed. U/S interpreted by me (1pt. min.). @ -None done What testing was considered but not performed or refused? (CT, X-rays, U/S, labs)? Why? @ -None What meds were considered but not given or refused? Why? @ -None Was smoking cessation discussed for >3mins.? @ -No Were there social determinants of health that impacted care today? How? (Homelessness, low income, unemployed, alcoholism, drug addiction, transportation, low edu. Level, literacy, decrease access to med. care, [facility], rehab)? @ -No Was there de-escalation of care discussed even if they declined (Discuss DNR or withdrawal of care, Hospice)? DNR status @ -No What co-morbidities impacted this encounter? (DM, HTN, Smoking, COPD, CAD, Cancer, CVA, ARF, Chemo, Hep., AIDS, mental health diagnosis, sleep apnea, morbid obesity)? @ -None Was patient admitted / discharged? Hospital course, mention meds given and route, prescriptions, significant lab abnormalities, going to OR and other pertinent info. @ -74-year-old female presents with weakness and frequent falls. Vital signs stable. Patient well-appearing no acute distress. Laboratory evaluation obtained. CBC is unremarkable. Metabolic panel shows sodium 110 chloride 74 potassium 3.0 magnesium 1.1. Rest of labs with acceptable limits. Clinical presentation consistent with electrolyte derangement. Case discussed with nephrology who will be on consult for hyponatremia management. No recommendations for 3% normal saline at this time. Patient case also discussed with showroom salesperson for ICU admission. Did you discuss the management of the patient with other professionals (professionals i.e. , PA, SUPERVIS[employer], lab, RT, psych nurse, sexual assault social worker, acupressurist, teacher, aircraft electronics technical officer, case management manager)? Give summary @ -Above Was critical care preformed (if so, how long)? @ -yes, 33 minutes Undiagnosed new problem with uncertain prognosis? @ -No Drug Therapy requiring intensive monitoring for toxicity (Heparin, Nitro, Insulin, Cardizem)? @ -No Were any procedures done? @ -No Diagnosis/symptom? Acute, or Chronic, or Acute on Chronic? Uncomplicated (without systemic symptoms) or Complicated (systemic symptoms)? @ -Hyponatremia Side effects of treatment? @ -No Exacerbation, Progression, or Severe Exacerbation? @ -No Poses a threat to life or bodily function? How? (Chest pain, [place], KS, pneumonia, PE, COPD, DKA, ARF, appy, cholecystitis, CVA, Diverticulitis, Homicidal, Suicidal, threat to staff... and all critical care pts) @ -yes - Lab Data Result diagrams: 12/31/24 18:06 12/31/24 18:06 Lab Results 12/31/24 12/31/24 12/31/24 Range/Units 18:06 18:06 18:06 WBC 9.33 (4.50-10.00) 10*3/uL RBC 4.10 (4.10-5.20) 10*6/uL Hgb 14.5 (12.0-15.0) g/dL Hct 37.4 (37.2-46.3) % MCV 91.2 (80.0-97.0) fL MCH 35.4 H (27.0-32.0) pg MCHC 38.8 H (32.0-37.0) g/dL Plt Count 173 (140-440) 10*3/uL MPV 9.2 L (9.5-12.2) fL Immature Gran % (Auto) 0.6 % Neutrophils % 71.1 % Lymphocytes % 13.4 % Monocytes % 14.3 % Eosinophils % 0.2 % Basophils % 0.4 % Immature Gran # 0.06 H (0.00-0.04) 10*3/uL Neutrophils # 6.63 (1.80-7.70) 10*3/uL Lymphocytes # 1.25 (0.90-5.00) 10*3/uL Monocytes # 1.33 H (0.20-1.00) 10*3/uL Eosinophils # 0.02 L (0.04-0.35) 10*3/uL Basophils # 0.04 (0.00-0.10) 10*3/uL Manual Slide Review Performed PT 10.0 (10.0-12.5) sec INR 0.9 (<1.2) APTT 23.5 (22.0-30.0) sec Sodium 110 L* (137-145) mmol/L Potassium 3.0 L (3.5-5.1) mmol/L Chloride 74 L* (98-107) mmol/L Carbon Dioxide 26 (22-30) mmol/L Anion Gap 10 mmol/L BUN 16 (7-17) mg/dL Creatinine 0.65 (0.52-1.04) mg/dL Est GFR (CKD-EPI)AfAm >90 (>60 ml/min/1.73 sqM) Est GFR (CKD-EPI)NonAf 88 (>60 ml/min/1.73 sqM) Glucose 121 H (74-99) mg/dL Plasma Lactic Acid Michael (0.7-2.0) mmol/L Calcium 9.4 (8.4-10.2) mg/dL Magnesium 1.1 L (1.6-2.3) mg/dL Total Bilirubin 1.2 (0.2-1.3) mg/dL AST 40 H (14-36) U/L ALT 27 (4-34) U/L Alkaline Phosphatase 75 (38-126) U/L Troponin I (0.000-0.034) ng/mL Total Protein 6.6 (6.3-8.2) g/dL Albumin 4.2 (3.5-5.0) g/dL Urine Color Urine Appearance (Clear) Urine pH (5.0-8.0) Ur Specific [place] (1.001-1.035) Urine Protein (Negative) Urine Glucose (UA) (Negative) Urine Ketones (Negative) Urine Blood (Negative) Urine Nitrite (Negative) Urine Bilirubin (Negative) Urine Urobilinogen (<2.0) mg/dL Ur Leukocyte Esterase (Negative) Urine WBC (0-5) /hpf Ur Squamous Epith Cells (0-4) /hpf Urine Bacteria (None) /hpf Urine Mucus (None) /hpf 12/31/24 12/31/24 12/31/24 Range/Units 18:06 18:06 18:29 WBC (4.50-10.00) 10*3/uL RBC (4.10-5.20) 10*6/uL Hgb (12.0-15.0) g/dL Hct (37.2-46.3) % MCV (80.0-97.0) fL MCH (27.0-32.0) pg MCHC (32.0-37.0) g/dL Plt Count (140-440) 10*3/uL MPV (9.5-12.2) fL Immature Gran % (Auto) % Neutrophils % % Lymphocytes % % Monocytes % % Eosinophils % % Basophils % % Immature Gran # (0.00-0.04) 10*3/uL Neutrophils # (1.80-7.70) 10*3/uL Lymphocytes # (0.90-5.00) 10*3/uL Monocytes # (0.20-1.00) 10*3/uL Eosinophils # (0.04-0.35) 10*3/uL Basophils # (0.00-0.10) 10*3/uL Manual Slide Review PT (10.0-12.5) sec INR (<1.2) APTT (22.0-30.0) sec Sodium (137-145) mmol/L Potassium (3.5-5.1) mmol/L Chloride (98-107) mmol/L Carbon Dioxide (22-30) mmol/L Anion Gap mmol/L BUN (7-17) mg/dL Creatinine (0.52-1.04) mg/dL Est GFR (CKD-EPI)AfAm (>60 ml/min/1.73 sqM) Est GFR (CKD-EPI)NonAf (>60 ml/min/1.73 sqM) Glucose (74-99) mg/dL Plasma Lactic Acid Michael 1.1 (0.7-2.0) mmol/L Calcium (8.4-10.2) mg/dL Magnesium (1.6-2.3) mg/dL Total Bilirubin (0.2-1.3) mg/dL AST (14-36) U/L ALT (4-34) U/L Alkaline Phosphatase (38-126) U/L Troponin I <0.012 (0.000-0.034) ng/mL Total Protein (6.3-8.2) g/dL Albumin (3.5-5.0) g/dL Urine Color Light Yellow Urine Appearance Cloudy H (Clear) Urine pH 6.0 (5.0-8.0) Ur Specific [place] 1.012 (1.001-1.035) Urine Protein Negative (Negative) Urine Glucose (UA) Negative (Negative) Urine Ketones 1+ H (Negative) Urine Blood Negative (Negative) Urine Nitrite Negative (Negative) Urine Bilirubin Negative (Negative) Urine Urobilinogen <2.0 (<2.0) mg/dL Ur Leukocyte Esterase Negative (Negative) Urine WBC 1 (0-5) /hpf Ur Squamous Epith Cells 20 H (0-4) /hpf Urine Bacteria Occasional H (None) /hpf Urine Mucus Rare H (None) /hpf Disposition Clinical Impression: Hyponatremia Disposition: ADMITTED IP TO THIS [facility] Condition: Critical Referrals: Dannielle Alcazar DO [Primary Care Provider] - 1-2 days Decision Time: 20:04
[2024-12-31 18:14] LABS: Basophils # (A) 0.04 10*3/uL (0.00-0.10); Basophils % (A) 0.4 %; Eosinophils # (A) 0.02 10*3/uL (0.04-0.35); Eosinophils % (A) 0.2 %; HCT 37.4 % (37.2-46.3); HGB 14.5 g/dL (12.0-15.0); Lymphocytes # (A) 1.25 10*3/uL (0.90-5.00); Lymphocytes % (A) 13.4 %; MCH 35.4 pg (27.0-32.0); MCV 91.2 fL (80.0-97.0); Mean Platelet Volume 9.2 fL (9.5-12.2); Monocytes # (A) 1.33 10*3/uL (0.20-1.00); Monocytes % (A) 14.3 %; Neutrophils # (A) 6.63 10*3/uL (1.80-7.70); Neutrophils % (A) 71.1 %; RDW 12.4 % (11.5-14.5); WBC 9.33 10*3/uL (4.50-10.00)
[2024-12-31 18:24] LABS: INR 0.9 (<1.2); Partial Thromboplastin Time 23.5 sec (22.0-30.0)
[2024-12-31 18:26] LABS: ALT 27 U/L (4-34); AST 40 U/L (14-36); African American GFR (CKD) >90 (>60 ml/min/1.73 sqM); Albumin 4.2 g/dL (3.5-5.0); Alkaline Phosphatase 75 U/L (38-126); Anion Gap 10 mmol/L; Blood Urea Nitrogen 16 mg/dL (7-17); Calcium 9.4 mg/dL (8.4-10.2); Carbon Dioxide 26 mmol/L (22-30); Glucose 121 mg/dL (74-99); Magnesium 1.1 mg/dL (1.6-2.3); Non-African American GFR(CKD) 88 (>60 ml/min/1.73 sqM); Total Bilirubin 1.2 mg/dL (0.2-1.3); Total Protein 6.6 g/dL (6.3-8.2)
[2024-12-31 18:28] LABS: Chloride 74 mmol/L (98-107); Sodium 110 mmol/L (137-145)
[2024-12-31 18:42] LABS: Appearance,Urine Cloudy (Clear); Bacteria,Urine Occasional /hpf; Bilirubin,Urine Negative (Negative); Blood,Urine Negative (Negative); Color,Urine Light Yellow; Glucose,Urine (UA) Negative (Negative); Ketones,Urine 1+ (Negative); Leukocyte Esterase,Urine Negative (Negative); Mucus,Urine Rare /hpf; Nitrite,Urine Negative (Negative); Protein,Urine Negative (Negative); Specific Gravity,Urine 1.012 (1.001-1.035); Squamous Epithelial Cell,Urine 20 /hpf (0-4); Urobilinogen,Urine <2.0 mg/dL (<2.0); WBC,Urine 1 /hpf (0-5)
[2024-12-31 18:48] LABS: MCHC 38.8 g/dL (32.0-37.0)
[2024-12-31] MEDS: SODIUM CHLORIDE 0.9% 500 ML 500 ML IV STA (19:16)
[2024-12-31] MEDS: SODIUM CHLORIDE 0.9% 1,000 ML IV STA (19:17)
[2024-12-31 19:19] LABS: Platelet Count 173 10*3/uL (140-440)
--- NOTE | 2024-12-31 19:21 | XR ---
EXAMINATION TYPE: XR pelvis AP view DATE OF EXAM: 12/31/2024 6:44 PM COMPARISON: 06/15/2015 CLINICAL INDICATION: Female, 74 years old with history of fall. weakness; pain [facility] TECHNIQUE: XR pelvis AP view, examined in a single projection. FINDINGS: Surgical clips project over the pelvis there is fixation hardware at L5-S1 on the left. Mil d to moderate degeneration changes with joint space tearing osteophyte formation. No discrete fractur e definitely visualized. IMPRESSION: 1. No acute osseous pathology. 2. Moderate degeneration changes of the hips. [facility], , 12/31/2024 7:19 PM
--- NOTE | 2024-12-31 19:22 | XR ---
EXAMINATION TYPE: XR chest 1V portable DATE OF EXAM: 12/31/2024 6:43 PM COMPARISON: Chest radiographs from 07/31/2023. CLINICAL INDICATION: Female, 74 years old with history of fall. weakness; TECHNIQUE: XR chest 1V portable Frontal view of the chest. FINDINGS: Lungs/Pleura: There is no evidence of pleural effusion, focal consolidation, or pneumothorax. Pulmonary vascularity: Unremarkable. Heart/mediastinum: Cardiomediastinal silhouette is unremarkable. Musculoskeletal: No acute osseous pathology. There is fixation hardware in the lower cervical spine. Other findings: None IMPRESSION: No acute cardiopulmonary disease/process. [facility], , 12/31/2024 7:20 PM
[2024-12-31] MEDS ORDERED: NALOXONE 0.4 MG/ML 1 ML VIAL IV PRN (19:51)
[2024-12-31] MEDS: MAGNESIUM SULFATE-D5W PMX 1 GM in DEXTROSE/WATER 1 100ML.BAG IVPB SCH (19:58)
[2024-12-31] MEDS: METOCLOPRAMIDE 5 MG/ML 2 ML VIAL IVP STA (20:03)
[2024-12-31 20:44] LABS: Influenza A Not Detected (Not Detectd); Influenza B Not Detected (Not Detectd); RSV Not Detected (Not Detectd)
--- NOTE | 2024-12-31 20:56 | CT ---
EXAMINATION TYPE: CT brain cspine wo con DATE OF EXAM: 12/31/2024 7:50 PM COMPARISON: 05/17/2021. CLINICAL INDICATION: Female, 74 years old with history of fall. weakness; Fall x1 day ago, weakness, pain TECHNIQUE: Brain: Multiple axial CT images of the brain were obtained without IV contrast. Cspine: Axial CT images from the skull base to the inferior aspect of T2 we obtained without intraven ous contrast. Coronal and sagittal reformatted images were also reviewed. . CT DLP: 1268.5 mGycm, Automated exposure control for dose reduction was used. FINDINGS: Brain: Extra-axial spaces: No abnormal extra-axial fluid collections. Ventricular system: Dilatation in proportion to cerebral atrophy. Cerebral parenchyma: Cerebral atrophy. No acute intraparenchymal hemorrhage or mass effect. The [place] -white junction is well differentiated. Scattered hypoattenuating areas are seen within the white mat ter. Cerebellum: Unremarkable. Mass effect: No evidence of midline shift. Intracranial vasculature: Atherosclerotic calcifications of the intracranial vessels. Soft tissues: Normal. Calvarium/osseous structures: No depressed skull fracture. Paranasal sinuses and mastoid air cells: Clear. Visualized orbits: Bilateral aphakia Cervical spine: Fracture: None. Osseous structures: Fixation hardware at C4 C5 C6 and C7. Hardware appears intact. Multilevel degener ative disc disease changes with endplate spurring and disc osteophyte complex's. Vertebral alignment: Within normal limits. Spinal canal/Neural Foramina: No evidence of significant spinal canal narrowing. No evidence for sign ificant neural foraminal stenosis. Neck soft tissues: Prevertebral soft tissues are within normal limits. Other: The airway is patent. The lung apices are clear. IMPRESSION: 1. No acute intracranial process. 2. Nonspecific white matter changes, likely secondary to chronic small vessel ischemic disease. 3. No evidence of cervical spine fracture. 4. Postsurgical changes with moderate multilevel degenerative disc disease. [facility], , 12/31/2024 8:54 PM
[2024-12-31] MEDS: POTASSIUM CHLORIDE 20 MEQ in WATER FOR INJECTION 1 100ML.BAG IVPB STA (22:28)
[2024-12-31 22:48] LABS: African American GFR (CKD) >90 (>60 ml/min/1.73 sqM); Anion Gap 9 mmol/L; Blood Urea Nitrogen 14 mg/dL (7-17); Carbon Dioxide 25 mmol/L (22-30); Chloride 77 mmol/L (98-107); Glucose 118 mg/dL (74-99); Non-African American GFR(CKD) 86 (>60 ml/min/1.73 sqM)
[2024-12-31 22:49] LABS: Potassium 2.7 mmol/L (3.5-5.1); Sodium 111 mmol/L (137-145)
[2025-01-01] MEDS ORDERED: Magnesium Replacement Protocol 1 EACH MISC MISCELLANE PRN (00:41)
--- NOTE | 2025-01-01 01:07 | P.CNPUL ---
History of Present Illness Consult date: 01/01/25 Requesting physician: Corey Castelan Reason for consult: other (Hyponatremia, ICU management) Chief complaint: Weakness, fall History of present illness: Patient is a 74-year-old female with past medical history significant for Crohn's disease and ileostomy, COPD, current ongoing tobacco smoker, DVT/PE. Brought into the emergency department yesterday evening with a chief complaint of generalized weakness, dizziness, and multiple falls at home. Workup in the emergency department remarkable for severe hyponatremia, with a sodium of 110. No confusion, headache, seizures. Patient was given a normal saline 500 cc bolus, and continued on normal saline at 50 mL/h. I am seeing this patient in the emergency department, as she is going to be admitted to the intensive care unit for sodium correction and neurological monitoring. She is alert and oriented x 3. Appears euvolemic. No weight gain. No edema. No neurological manifestations. Endorses excessive free water intake, 10 to 11, 16 ounce bottles of water per day. Also, a cup of coffee and tomato juice with salt daily. Occasional beer drinking, approximately 2 to 3, 12 ounce beers 1-2 times per week. Adds, intermittent nausea and retching since . No increased output out of her ostomy. Denies any diuretic use. Denies any new medication changes. Denies any recent infections. Denies any history of known maligna ncies. Remaining labs including a CBC with a WBC count of 9.3, hemoglobin 14.5, platelets 173. Most recent BMP with a sodium 111, potassium 2.7, chloride 170 77, serum bicarb 25, BUN 14, creatinine 0.68, glucose 118. Calcium 9. Magnesium 1.1. Troponins less than 0.012. Normal saline is increased to 75 mL/h. Chest x-ray does not show any focal infiltrations or pulmonary nodules or masses. CT of the brain and C-spine does not show any acute intracranial process. No evidence of cervical spine fracture. Vital signs are stable. Review of Systems Constitutional: Reports poor appetite, Reports weakness, Denies chills, Denies fever, Denies weight gain, Denies weight loss Ears, nose, mouth and throat: Reports vertigo, Denies headache, Denies nasal congestion, Denies nasal discharge, Denies neck lump, Denies post-nasal drip, Denies sinus pain, Denies sinus pressure, Denies sore throat, Denies voice changes Cardiovascular: Denies leg edema, Denies lightheadedness, Denies orthopnea, Denies palpitations, Denies paroxysmal nocturnal dyspnea, Denies shortness of breath, Denies syncope Respiratory: Denies congestion, Denies cough, Denies dyspnea, Denies hemoptysis, Denies pain on inspiration, Denies respiratory infections, Denies wheezing Gastrointestinal: Reports as per HPI Genitourinary: Reports urinary frequency, Denies dysuria, Denies flank pain, Denies hematuria, Denies incomplete emptying, Denies pelvic pain Musculoskeletal: Reports frequent falls, Denies arm numbness/tingling, Denies g ait dysfunction, Denies leg numbness/tingling, Denies shooting arm pain, Denies shooting leg pain Integumentary: Denies rash, Denies wounds Neurological: Reports weakness (Generalized), Denies change in speech, Denies confusion, Denies head injury, Denies headaches, Denies numbness, Denies paralysis, Denies paresthesias, Denies seizures, Denies syncope, Denies transient paralysis, Denies tremors, Denies visual changes Psychiatric: Denies anxiety, Denies depression Endocrine: Reports excessive thirst, Reports fatigue, Reports polydipsia, Denies polyphagia, Denies polyuria Past Medical History Past Medical History: Asthma, COPD, Deep Vein Thrombosis (DVT), Osteoarthritis (OA), Pneumonia, Pulmonary Embolus (PE) Additional Past Medical History / Comment(s): CROHNS WITH OSTOMY - hx DVT and PE after Ileosotomy surgery 1996, migraines, hx ulcer, anemia, pneumonia multiple times History of Any Multi-Drug Resistant Organisms: None Reported Past Surgical History: Appendectomy, Back Surgery, Cholecystectomy, Hysterectomy, Joint Replacement, Orthopedic Surgery Additional Past Surgical History / Comment(s): Ileostomy surgery, neuroma removed from bilateral feet, left wrist surgery, sinus surgery, bilateral cataracts, REVISION OF ILEOSTOMY to the right side, cervical fusion 04-20-21, Lt. TKA ,Lt shoulder surg, bladder suspension surgery Past Anesthesia/Blood Transfusion Reactions: Previous Problems w/ Anesthesia, Motion Sickness Additional Past Anesthesia/Blood Transfusion Reaction / Comment(s): Difficulty waking up from anesthesia, has woken up during surgeries Past Psychological History: No Psychological Hx Reported Smoking Status: Current every day smoker - Past Family History Mother Family Medical History: No Reported History Medications and Allergies Home Medications Medication Instructions Recorded Confirmed Type Ergocalciferol (Vitamin D2) 1,250 mcg PO DIRECTED 07/31/23 12/31/24 History [Drisdol (50,000 Iu)] Cyanocobalamin [Vitamin B-12 1 dose SQ Q30D 02/13/24 12/31/24 History Injection] Allergies Allergy/AdvReac Type Severity Reaction Status Date / Time codeine Allergy Severe Swelling Verified 12/31/24 20:24 and itching Penicillins Allergy Severe Swelling Verified 12/31/24 20:24 of throat, Rash/Hives, Itching hydromorphone HCl AdvReac Hallucinati Verified 12/31/24 20:24 [From Dilaudid] ons Physical Exam Vitals: Vital Signs Temp Pulse Pulse Resp BP BP BP 12/31/24 22:05 98.0 F 73 20 107/73 12/31/24 20:03 20 12/31/24 18:00 98.4 F 82 20 96/86 99/71 12/31/24 16:30 98.2 F 91 20 124/75 BP Pulse Ox 12/31/24 22:05 95 12/31/24 20:03 12/31/24 18:00 115/72 97 12/31/24 16:30 96 Intake and Output 12/31/24 12/31/24 01/01/25 14:59 22:59 06:59 Other: Weight 51.256 kg GENERAL EXAM: Alert, 74-year-old female, comfortable in no apparent distress. HEAD: Normocephalic and atraumatic EYES: Normal reaction of pupils, equal size. NOSE: Clear with pink turbinates. THROAT: No erythema or exudates. NECK: No masses, no JVD. CHEST: No chest wall deformity. LUNGS: Equal air entry with no crackles, wheeze, rhonchi or dullness. On room air. No conversational dyspnea or accessory muscle use.. CVS: S1 and S2 normal with no audible murmur, regular rhythm. No extra heart sounds ABDOMEN: No hepatosplenomegaly, active bowel sounds, no guarding or rigidity. Functional ostomy SPINE: No scoliosis or deformity SKIN: No rashes CENTRAL NERVOUS SYSTEM: No focal deficits, tone is normal in all 4 extremities. EXTREMITIES: There is no peripheral edema, clubbing, or cyanosis. Peripheral pulses are intact. Results - Laboratory Findings CBC and BMP: 12/31/24 18:06 01/01/25 05:47 PT/INR, D-dimer PT 10.0 sec (10.0-12.5) 12/31/24 18:06 INR 0.9 (<1.2) 12/31/24 18:06 Abnormal lab findings: Abnormal Labs 12/31/24 12/31/24 12/31/24 18:06 18:06 18:29 MCH 35.4 H MCHC 38.8 H MPV 9.2 L Immature Gran # 0.06 H Monocytes # 1.33 H Eosinophils # 0.02 L Sodium 110 L* Potassium 3.0 L Chloride 74 L* Glucose 121 H Magnesium 1.1 L AST 40 H Urine Appearance Cloudy H Urine Ketones 1+ H Ur Squamous Epith Cells 20 H Urine Bacteria Occasional H Urine Mucus Rare H 12/31/24 22:13 MCH MCHC MPV Immature Gran # Monocytes # Eosinophils # Sodium 111 L* Potassium 2.7 L* Chloride 77 L Glucose 118 H Magnesium AST Urine Appearance Urine Ketones Ur Squamous Epith Cells Urine Bacteria Urine Mucus - Diagnostic Findings Chest x-ray: image reviewed Assessment and Plan Assessment: Severe hyponatremia, sodium 110 mmol/L on presentation Severe hypokalemia, being replaced per protocol Hypomagnesemia, being replaced per protocol Polydipsia, with excessive free water intake, greater than 5 L/day Chronic obstructive pulmonary disease, stable/inactive Current ongoing tobacco smoker History of PE/DVT, not on any anticoagulation History of Crohn's disease with ileostomy Plan: Patient to be admitted to the ICU for close neuromonitoring and sodium correction No neurological manifestations at this time Hemodynamics are stable Appears euvolemic Most recent sodium up to 111. Currently, has normal saline infusing at 75 mm/h. Next sodium recheck at 0200. May require hypertonic saline, if no improvement, which is being directed by neurology. Goal sodium increase 6 to 8 mmol/L/day Order urine osmolality, serum osmolality, urine sodium, TSH Free water restriction Case to be discussed with Dr. Mendez, additional recommendations to follow I have personally seen and examined the patient, performed the documentation and the assessment and plan as written. Number of minutes spent on the visit: This is a joint evaluation is being done along with the nurse practitioner. The patient was seen in the emergency department. The patient was evaluated and 32 minutes. In summary, the patient has developed hyponatremia. She has a high output ileostomy and she is drinking excessive amount of fluids and water. She estimates to drink more than 3 L of water on daily basis. Sodium level was 111. She is currently on normal saline which is running at rate of 75 cc an hour. Her sodium level is up to 214. Rest of the electrolytes show a potassium level of 2.5 that is to be further replaced. BUN is 11 with a creatinine of 0.6. Nephrology on the case. The patient is currently on room air oxygen. CT scan of the head and cervical spine showed no acute abnormalities. Chest x-ray showed no acute cardiopulmonary process. The patient is hemodynamically stable. Mental status is appropriate. The patient will be monitored in the intensive care unit regarding her ongoing hyponatremia. She has stable COPD and she is a chronic smoker. Time with Patient: Greater than 30
[2025-01-01] MEDS: MAGNESIUM SULFATE-D5W PMX 1 GM in DEXTROSE/WATER 1 100ML.BAG IVPB SCH (02:26)
[2025-01-01 02:32] LABS: African American GFR (CKD) >90 (>60 ml/min/1.73 sqM); Anion Gap 8 mmol/L; Blood Urea Nitrogen 12 mg/dL (7-17); Calcium 8.9 mg/dL (8.4-10.2); Carbon Dioxide 24 mmol/L (22-30); Chloride 81 mmol/L (98-107); Glucose 103 mg/dL (74-99); Non-African American GFR(CKD) 88 (>60 ml/min/1.73 sqM); Potassium 3.1 mmol/L (3.5-5.1)
[2025-01-01 02:46] LABS: Sodium 113 mmol/L (137-145)
[2025-01-01] MEDS: ACETAMINOPHEN TAB 325 MG TAB PO PRN ×2 (06:26→16:00)
[2025-01-01] MEDS: ONDANSETRON 4 MG/2 ML VIAL IVP STA (06:26)
[2025-01-01 06:45] LABS: African American GFR (CKD) >90 (>60 ml/min/1.73 sqM); Anion Gap 10 mmol/L; Blood Urea Nitrogen 11 mg/dL (7-17); Calcium 9.1 mg/dL (8.4-10.2); Carbon Dioxide 24 mmol/L (22-30); Chloride 80 mmol/L (98-107); Glucose 103 mg/dL (74-99); Non-African American GFR(CKD) 86 (>60 ml/min/1.73 sqM); Potassium 2.9 mmol/L (3.5-5.1)
[2025-01-01 06:56] LABS: Sodium 114 mmol/L (137-145)
[2025-01-01] MEDS ORDERED: Potassium Replacement Protocol 1 EACH MISC MISCELLANE PRN ×2 (08:47→08:48)
[2025-01-01] MEDS ORDERED: POTASSIUM CHLORIDE ER 20 MEQ TAB.ER PO SCH (09:00)
[2025-01-01] MEDS: ONDANSETRON 4 MG/2 ML VIAL IVP PRN (09:19)
[2025-01-01] MEDS: POTASSIUM CHLORIDE 10 MEQ in WATER FOR INJECTION 1 100ML.BAG IVPB SCH (09:21)
[2025-01-01] MEDS: SUMAtriptan succinate 50 MG TAB PO STA (09:23)
[2025-01-01] MEDS: POTASSIUM CHLORIDE ER 20 MEQ TAB.ER PO STA (11:18)
[2025-01-01] MEDS: SODIUM CHLORIDE 0.9% 1,000 ML IV SCH ×2 (11:18→23:24)
--- NOTE | 2025-01-01 12:00 | P.NPCON ---
History of Present Illness - Reason for Consult hyponatremia - History of Present Illness Patient is a 74-year-old female with history of chron's disease status post bowel resection and ileostomy, COPD who came to the hospital with complaints of increased weakness, dizziness. No history of seizures No change in mentation. Serum sodium was 110 mEq/L. Patient denies any previous history of hyponatremia. Blood pressure was low No reports of increased output from ileostomy recently. No new medications started recently. Patient is maintained on normal saline and sodium has increased to 114 today. Past Medical History Past Medical History: Asthma, COPD, Deep Vein Thrombosis (DVT), Osteoarthritis (OA), Pneumonia, Pulmonary Embolus (PE) Additional Past Medical History / Comment(s): CROHNS WITH OSTOMY - hx DVT and PE after Ileosotomy surgery 1996, migraines, hx ulcer, anemia, pneumonia multiple times History of Any Multi-Drug Resistant Organisms: None Reported Past Surgical History: Appendectomy, Back Surgery, Cholecystectomy, Hysterectomy, Joint Replacement, Orthopedic Surgery Additional Past Surgical History / Comment(s): Ileostomy surgery, neuroma jennifer myla from bilateral feet, left wrist surgery, sinus surgery, bilateral cataracts, REVISION OF ILEOSTOMY to the right side, cervical fusion 04-20-21, Lt. TKA ,Lt shoulder surg, bladder suspension surgery Past Anesthesia/Blood Transfusion Reactions: Previous Problems w/ Anesthesia, Motion Sickness Additional Past Anesthesia/Blood Transfusion Reaction / Comment(s): Difficulty waking up from anesthesia, has woken up during surgeries Past Psychological History: No Psychological Hx Reported Smoking Status: Current every day smoker - Past Family History Mother Family Medical History: No Reported History Medications and Allergies Home Medications Medication Instructions Recorded Confirmed Type Ergocalciferol (Vitamin D2) 1,250 mcg PO DIRECTED 07/31/23 12/31/24 History [Drisdol (50,000 Iu)] Cyanocobalamin [Vitamin B-12 1 dose SQ Q30D 02/13/24 12/31/24 History Injection] Allergies Allergy/AdvReac Type Severity Reaction Status Date / Time codeine Allergy Severe Swelling Verified 12/31/24 20:24 and itching Penicillins Allergy Severe Swelling Verified 12/31/24 20:24 of throat, Rash/Hives, Itching hydromorphone HCl AdvReac Hallucinati Verified 12/31/24 20:24 [From Dilaudid] ons Physical Exam Vitals: Vital Signs Temp Pulse Pulse Resp BP BP BP 01/01/25 11:22 72 18 108/86 01/01/25 09:28 69 18 110/70 01/01/25 08:39 69 18 97/57 01/01/25 07:00 70 16 116/67 01/01/25 06:00 70 20 116/67 01/01/25 01:14 98.1 F 82 21 127/73 12/31/24 22:05 98.0 F 73 20 107/73 12/31/24 20:03 20 12/31/24 18:00 98.4 F 82 20 96/86 99/71 12/31/24 16:30 98.2 F 91 20 124/75 BP Pulse Ox 01/01/25 11:22 98 01/01/25 09:28 97 01/01/25 08:39 96 01/01/25 07:00 95 01/01/25 06:00 97 01/01/25 01:14 95 12/31/24 22:05 95 12/31/24 20:03 12/31/24 18:00 115/72 97 12/31/24 16:30 96 Intake and Output 12/31/24 01/01/25 01/01/25 22:59 06:59 14:59 Output Total 400 Balance -400 Output: Post Void Residual 400 Other: Weight 51.256 kg Patient is awake, comfortable, no acute distress Examination of the heart S1 and S2 Examination of the lungs bilateral breath sounds are heard Abdomen is soft nontender Examination of lower extremities shows no evidence of edema 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 Hyponatremia, hypovolemic, slowly improving with saline. Urine osmolality 315 2. Volume depletion 3. History of Crohn's disease status post bowel resection and ileostomy 4. Hypokalemia secondary to GI fluid loss, check magnesium levels Plan: Replace potassium Check magnesium Continue with normal saline Continue to check sodium every 4 hours Thank you for the consultation. We will continue to follow the patient with you during her hospitalization.
[2025-01-01] MEDS: diphenhydrAMINE 50 MG/ML 1 ML VIAL IVP STA (20:48)
[2025-01-01] MEDS: HYDROcodone/APAP 5-325MG 1 EACH TAB PO PRN (20:48)
[2025-01-01] MEDS: PROCHLORPERAZINE INJ 10 MG/2 ML VIAL IVP STA (20:48)
--- NOTE | 2025-01-02 00:36 | HP ---
HISTORY AND PHYSICAL CHIEF COMPLAINT: Weakness and hyponatremia. HISTORY OF PRESENT ILLNESS: This is a 74-year-old woman with the past medical history of multiple medical problems, complaining of weakness of several days duration. The patient has history of Crohn disease, bowel resection, and ileostomy. The patient is apparently also drinking about 5 L of water, according to the family. The patient has sodium of 112. The patient is admitted for evaluation and treatment. There is no history of any fever, rigors, or chills at this time. PAST MEDICAL HISTORY: History of asthma, COPD, DVT, and pulmonary embolism. Rest history and chart are also reviewed. HOME MEDICATIONS: Reviewed, include vitamin D2. ALLERGIES: Codeine. FAMILY HISTORY: No history of heart disease or strokes in the family. SOCIAL HISTORY: Smoking. REVIEW OF SYSTEMS: Fourteen-point review of systems negative except as mentioned earlier. PHYSICAL EXAMINATION: VITAL SIGNS: Pulse is 72, blood pressure 108/80, and respirations 18. CHEST: Few scattered rhonchi. ABDOMEN: Soft. NERVOUS SYSTEM: Diffusely weak. HEENT: Oral mucosa is dry. LABORATORY DATA: Sodium 111, improved to 118. ASSESSMENT: 1. Severe hyponatremia, possibly dilutional. 2. Polydipsia, hysterically possibly. 3. History of asthma and chronic obstructive pulmonary disease. 4. History of deep venous thrombosis. 5. History of pulmonary embolus. 6. Crohn disease with an ostomy. 7. Hypokalemia. RECOMMENDATIONS: This is 74-year-old woman, who presented with multiple complex medical issues. We will monitor the patient closely. I would recommend continue with the current medications. The urine osmolality was found to be low at 315, random sample. Potassium 2.9. We will correct that also. Once again, prognosis is extremely guarded because of the multiple complex medical issues. Further recommendations to follow. CT head showed only chronic changes. MMODL / IJN: [id number] / JESSICA
[2025-01-02 07:45] LABS: Basophils # (A) 0.06 10*3/uL (0.00-0.10); Basophils % (A) 0.8 %; Eosinophils # (A) 0.13 10*3/uL (0.04-0.35); Eosinophils % (A) 1.7 %; HCT 37.5 % (37.2-46.3); HGB 13.4 g/dL (12.0-15.0); Lymphocytes % (A) 26.6 %; MCH 34.7 pg (27.0-32.0); MCHC 35.7 g/dL (32.0-37.0); Mean Platelet Volume 9.8 fL (9.5-12.2); Neutrophils # (A) 4.36 10*3/uL (1.80-7.70); Neutrophils % (A) 57.8 %; Platelet Count 189 10*3/uL (140-440); RBC 3.86 10*6/uL (4.10-5.20); RDW 13.1 % (11.5-14.5); WBC 7.53 10*3/uL (4.50-10.00)
[2025-01-02 07:58] LABS: MCV 97.2 fL (80.0-97.0)
[2025-01-02 08:03] LABS: African American GFR (CKD) >90 (>60 ml/min/1.73 sqM); Anion Gap 9 mmol/L; Blood Urea Nitrogen 16 mg/dL (7-17); Calcium 9.4 mg/dL (8.4-10.2); Carbon Dioxide 22 mmol/L (22-30); Chloride 89 mmol/L (98-107); Glucose 104 mg/dL (74-99); Magnesium 2.1 mg/dL (1.6-2.3); Non-African American GFR(CKD) 79 (>60 ml/min/1.73 sqM); Potassium 3.6 mmol/L (3.5-5.1); Sodium 120 mmol/L (137-145)
[2025-01-02] MEDS: SODIUM CHLORIDE TAB 1 GM TAB PO SCH (10:51)
--- NOTE | 2025-01-02 15:55 | P.PN ---
Subjective Progress Note Date: 01/02/25 Patient is a 74-year-old female with past medical history significant for Crohn 's disease and ileostomy, COPD, current ongoing tobacco smoker, DVT/PE. Brought into the emergency department yesterday evening with a chief complaint of generalized weakness, dizziness, and multiple falls at home. Workup in the emergency department remarkable for severe hyponatremia, with a sodium of 110. No confusion, headache, seizures. Patient was given a normal saline 500 cc bolus, and continued on normal saline at 50 mL/h. I am seeing this patient in the emergency department, as she is going to be admitted to the intensive care unit for sodium correction and neurological monitoring. She is alert and oriented x 3. Appears euvolemic. No weight gain. No edema. No neurological manifestations. Endorses excessive free water intake, 10 to 11, 16 ounce bottles of water per day. Also, a cup of coffee and tomato juice with salt daily. Occasional beer drinking, approximately 2 to 3, 12 ounce beers 1-2 times per week. Adds, intermittent nausea and retching since . No increased output out of her ostomy. Denies any diuretic use. Denies any new medication changes. Denies any recent infections. Denies any history of known malignancies. Remaining labs including a CBC with a WBC count of 9.3, hemoglobin 14.5, platelets 173. Most recent BMP with a sodium 111, potassium 2.7, chloride 170 77, serum bicarb 25, BUN 14, creatinine 0.68, glucose 118. Calcium 9. Magnesium 1.1. Troponins less than 0.012. Normal saline is increased to 75 mL/h. Chest x-ray does not show any focal infiltrations or pulmonary nodules or masses. CT of the brain and C-spine does not show any acute intracranial process. No evidence of cervical spine fracture. Vital signs are stable. On 01/02/2025, the patient is being seen for a follow-up. Awake and alert without any mental status change or focal neurological deficit. Sodium is at 120. Potassium is at 3.6. CBC is within normal limits. The patient is on normal saline at rate of 60 cc an hour. Denies having any other new complaints. No altered mentation. Nephrology on the case regarding ongoing hyponatremia. Objective - Vital Signs Vital signs: Vital Signs Temp 98.6 F 01/01/25 19:52 Pulse 81 05/16/25 08:10 Resp 16 01/02/25 08:10 BP 98/61 01/02/25 08:10 Pulse Ox 99 01/02/25 08:10 FiO2 Intake & Output 01/01/25 01/02/25 01/02/25 18:59 06:59 18:59 Intake Total 480 560 956 Output Total 110 200 Balance 370 560 756 Weight 51.256 kg 53 kg Intake: Intake, IV Titration 320 Amount Sodium Chloride 0.9% 1, 320 000 ml @ 60 mls/hr IV . [id number] [facility] Rx#:[id number] Oral 480 240 956 Output: Urine 200 Post Void Residual 110 Other: Voiding Method Toilet Toilet # Voids 1 1 1 # Bowel Movements 1 1 - Exam GENERAL EXAM: Alert, 74-year-old female, comfortable in no apparent distress. HEAD: Normocephalic and atraumatic EYES: Normal reaction of pupils, equal size. NOSE: Clear with pink turbinates. THROAT: No erythema or exudates. NECK: No masses, no JVD. CHEST: No chest wall deformity. LUNGS: Equal air entry with no crackles, wheeze, rhonchi or dullness. On room air. No conversational dyspnea or accessory muscle use.. CVS: S1 and S2 normal with no audible murmur, regular rhythm. No extra heart sounds ABDOMEN: No hepatosplenomegaly, active bowel sounds, no guarding or rigidity. Functional ostomy SPINE: No scoliosis or deformity SKIN: No rashes CENTRAL NERVOUS SYSTEM: No focal deficits, tone is normal in all 4 extremities. EXTREMITIES: There is no peripheral edema, clubbing, or cyanosis. Peripheral pulses are intact. - Labs CBC & Chem 7: 01/02/25 07:04 01/02/25 14:17 Labs: Abnormal Lab Results - Last 24 Hours (Table) 12/31/24 01/01/25 01/01/25 Range/Units 22:13 05:47 12:34 RBC (4.10-5.20) 10*6/uL MCV (80.0-97.0) fL MCH (27.0-32.0) pg Immature Gran # (0.00-0.04) 10*3/uL Sodium 118 L* (137-145) mmol/L Chloride (98-107) mmol/L Glucose (74-99) mg/dL Osmolality 227 L (275-295) mOsm/kg Magnesium 3.1 H (1.6-2.3) mg/dL Ur Random Sodium (40-220) mmol/L 01/01/25 01/01/25 01/02/25 Range/Units 15:50 20:20 00:04 RBC (4.10-5.20) 10*6/uL MCV (80.0-97.0) fL MCH (27.0-32.0) pg Immature Gran # (0.00-0.04) 10*3/uL Sodium 119 L* 119 L* 119 L* (137-145) mmol/L Chloride (98-107) mmol/L Glucose (74-99) mg/dL Osmolality (275-295) mOsm/kg Magnesium (1.6-2.3) mg/dL Ur Random Sodium (40-220) mmol/L 01/02/25 01/02/25 01/02/25 Range/Units 03:08 07:04 07:04 RBC 3.86 L (4.10-5.20) 10*6/uL MCV 97.2 H D (80.0-97.0) fL MCH 34.7 H (27.0-32.0) pg Immature Gran # 0.08 H (0.00-0.04) 10*3/uL Sodium 120 L (137-145) mmol/L Chloride 89 L (98-107) mmol/L Glucose 104 H (74-99) mg/dL Osmolality (275-295) mOsm/kg Magnesium (1.6-2.3) mg/dL Ur Random Sodium <20 L (40-220) mmol/L Assessment and Plan Assessment: Severe hyponatremia, sodium 110 mmol/L on presentation, and sodium of is currently up to 120 and the patient is asymptomatic. Mental normal saline rate of 60 cc an hour Severe hypokalemia, being replaced per protocol, improved Hypomagnesemia, being replaced per protocol Polydipsia, with excessive free water intake, greater than 5 L/day Chronic obstructive pulmonary disease, stable/inactive Current ongoing tobacco smoker History of PE/DVT, not on any anticoagulation History of Crohn's disease with ileostomy, high output Plan: No neurological manifestations raised hyponatremia Hemodynamics are stable Appears euvolemic Sodium level continues to gradually improve and the patient remains on normal saline Hyponatremia is attributed to excessive water intake in the order of 5 L on a daily basis Free water restriction Nephrology on the case Patient is on room air oxygen Chest x-ray shows no acute cardiopulmonary process and the patient has chronic stable COPD the patient is a chronic smoker. Time with Patient: Greater than 30
--- NOTE | 2025-01-02 16:48 | P.PN ---
Subjective Patient is seen for follow-up for hyponatremia, hypovolemic and maintained on normal saline. Serum sodium improved to 120 today Overall she is feeling better. No significant complaints today. Objective - Vital Signs Vital signs: Vital Signs Temp 98.6 F 01/01/25 19:52 Pulse 80 01/02/25 16:00 Resp 18 01/02/25 16:00 BP 103/65 01/02/25 16:00 Pulse Ox 98 01/02/25 16:00 FiO2 Intake & Output 01/01/25 01/02/25 01/02/25 18:59 06:59 18:59 Intake Total 958 307 5303 Output Total 110 504 Balance 370 560 570 Weight 51.256 kg 53 kg Intake: Intake, IV Titration 320 Amount Sodium Chloride 0.9% 1, 320 000 ml @ 60 mls/hr IV . [id number] [facility] Rx#:[id number] Oral [id number] Output: Urine 500 Post Void Residual 110 Stool 4 Other: Voiding Method Toilet Toilet # Voids 1 1 1 # Bowel Movements 1 1 - Exam Patient is awake, comfortable, no acute distress Examination of the heart S1 and S2 Examination of the lungs bilateral breath sounds are heard Abdomen is soft nontender Examination of lower extremity shows no evidence of edema COM WRITER exam grossly intact - Labs CBC & Chem 7: 01/02/25 07:04 01/02/25 14:17 Labs: Abnormal Lab Results - Last 24 Hours (Table) 01/01/25 01/02/25 01/02/25 Range/Units 20:20 00:04 03:08 RBC (4.10-5.20) 10*6/uL MCV (80.0-97.0) fL MCH (27.0-32.0) pg Immature Gran # (0.00-0.04) 10*3/uL Sodium 119 L* 119 L* (137-145) mmol/L Chloride (98-107) mmol/L Glucose (74-99) mg/dL Ur Random Sodium <20 L (40-220) mmol/L 01/02/25 01/02/25 01/02/25 Range/Units 07:04 07:04 14:17 RBC 3.86 L (4.10-5.20) 10*6/uL MCV 97.2 H D (80.0-97.0) fL MCH 34.7 H (27.0-32.0) pg Immature Gran # 0.08 H (0.00-0.04) 10*3/uL Sodium 120 L 122 L (137-145) mmol/L Chloride 89 L (98-107) mmol/L Glucose 104 H (74-99) mg/dL Ur Random Sodium (40-220) mmol/L Assessment and Plan Assessment: 1. Hyponatremia, hypovolemic, slowly improving with saline. Urine osmolality 315 2. Volume depletion 3. History of Crohn's disease status post bowel resection and ileostomy 4. Hypokalemia secondary to GI fluid loss, magnesium was low and has been replaced 5. Hypomagnesemia status post replacement Plan: Continue with normal saline Repeat labs in a.m. Encouraged increased oral intake particularly protein.
--- NOTE | 2025-01-03 02:12 | PN ---
PROGRESS NOTE DATE OF SERVICE: 01/02/2025 SUBJECTIVE: This 74-year-old was admitted with significant hyponatremia, also had significant output from the ileostomy secondary to Crohn disease according to her. The patient also has significant polydipsia also. The patient is being closely monitored. Sodium was 112 on admission, currently it is 122. PAST MEDICAL HISTORY: Reviewed. REVIEW OF SYSTEMS: Fourteen-point review of systems negative except as mentioned earlier. CURRENT MEDICATIONS: Reviewed. PHYSICAL EXAMINATION: VITAL SIGNS: Pulse is 80, blood pressure 103/64, and respirations 18. HEENT: Conjunctivae normal. Oral mucosa dry. NECK: No jugular venous distention. CARDIOVASCULAR: S1, S2 muffled. RESPIRATORY: Bilateral scattered rhonchi. ABDOMEN: Soft. Legs: No edema. No swelling. NERVOUS SYSTEM: Nonfocal. LABORATORY DATA: Reviewed. ASSESSMENT: 1. Severe hyponatremia, possibly dilutional. 2. Polydipsia, hysterically possibly or secondary to thirst secondary from dehydration. 3. Increased output from the ileostomy. 4. History of Crohn disease and ileostomy. 5. History of asthma and chronic obstructive pulmonary disease. 6. History of deep venous thrombosis. 7. History of pulmonary embolism. 8. Hypokalemia. RECOMMENDATIONS: Recommended to continue current management and treatment. I would recommend exact measurement of the ileostomy output, urine output and intake output charting. Closely follow with Nephrology. ADH was ordered. Guarded prognosis. Further recommendation is to follow. MMODL / IJN: [id number] /
[2025-01-03 07:16] LABS: Basophils # (A) 0.05 10*3/uL (0.00-0.10); Basophils % (A) 0.7 %; Eosinophils # (A) 0.14 10*3/uL (0.04-0.35); Eosinophils % (A) 1.9 %; HCT 33.2 % (37.2-46.3); HGB 11.7 g/dL (12.0-15.0); Lymphocytes % (A) 18.8 %; MCH 34.4 pg (27.0-32.0); MCHC 35.2 g/dL (32.0-37.0); MCV 97.6 fL (80.0-97.0); Mean Platelet Volume 9.6 fL (9.5-12.2); Monocytes % (A) 10.8 %; Neutrophils # (A) 4.96 10*3/uL (1.80-7.70); Neutrophils % (A) 66.7 %; Platelet Count 170 10*3/uL (140-440); RDW 13.3 % (11.5-14.5); WBC 7.43 10*3/uL (4.50-10.00)
[2025-01-03 07:29] LABS: ALT 22 U/L (4-34); AST 32 U/L (14-36); African American GFR (CKD) 90 (>60 ml/min/1.73 sqM); Albumin 3.4 g/dL (3.5-5.0); Alkaline Phosphatase 68 U/L (38-126); Anion Gap 8 mmol/L; Blood Urea Nitrogen 15 mg/dL (7-17); Calcium 9.2 mg/dL (8.4-10.2); Carbon Dioxide 18 mmol/L (22-30); Chloride 99 mmol/L (98-107); Glucose 91 mg/dL (74-99); Non-African American GFR(CKD) 78 (>60 ml/min/1.73 sqM); Potassium 3.4 mmol/L (3.5-5.1); Sodium 125 mmol/L (137-145); Total Bilirubin 0.7 mg/dL (0.2-1.3); Total Protein 5.5 g/dL (6.3-8.2)
[2025-01-03] MEDS: ERGOCALCIFEROL 1,250 MCG (50,000 IU) CAPSULE PO SCH (08:22)
--- NOTE | 2025-01-03 13:40 | P.PN ---
Subjective Progress Note Date: 01/03/25 Patient is seen for follow-up for hyponatremia, hypovolemic and maintained on normal saline. Feeling better and tolerating more of diet. Patient is awake, comfortable, no acute distress Examination of the heart S1 and S2 Examination of the lungs bilateral breath sounds are heard Abdomen is soft nontender Examination of lower extremity shows no evidence of edema [employer] exam grossly intact Objective - Vital Signs Vital signs: Vital Signs Temp 98.3 F 01/03/25 04:00 Pulse 82 01/03/25 04:00 Resp 17 01/03/25 04:00 BP 115/76 01/03/25 04:00 Pulse Ox 97 01/03/25 04:00 FiO2 Intake & Output 01/02/25 01/03/25 01/03/25 18:59 06:59 18:59 Intake Total 1544 30 Output Total 504 1450 Balance 1040 -1420 Weight 54.5 kg Intake: IV 30 Invasive Line 1 10 Invasive Line 2 10 Invasive Line 3 10 Oral 1544 Output: Urine 500 500 Stool 4 950 Other: Voiding Method Toilet Toilet # Voids 1 2 # Bowel Movements 1 - Labs CBC & Chem 7: 01/03/25 06:37 01/03/25 06:37 Labs: Abnormal Lab Results - Last 24 Hours (Table) 01/02/25 01/03/25 01/03/25 Range/Units 14:17 06:37 06:37 RBC 3.40 L (4.10-5.20) 10*6/uL Hgb 11.7 L (12.0-15.0) g/dL Hct 33.2 L (37.2-46.3) % MCV 97.6 H (80.0-97.0) fL MCH 34.4 H (27.0-32.0) pg Immature Gran # 0.08 H (0.00-0.04) 10*3/uL Sodium 122 L 125 L (137-145) mmol/L Potassium 3.4 L (3.5-5.1) mmol/L Carbon Dioxide 18 L (22-30) mmol/L Total Protein 5.5 L (6.3-8.2) g/dL Albumin 3.4 L (3.5-5.0) g/dL Assessment and Plan Assessment: 1. Hyponatremia, hypovolemic, slowly improving with saline. Urine osmolality 315 2. Volume depletion 3. History of Crohn's disease status post bowel resection and ileostomy 4. Hypokalemia secondary to GI fluid loss, magnesium was low and has been replaced 5. Hypomagnesemia status post replacement Plan: Continue with normal saline Repeat labs in a.m. Encouraged increased oral intake particularly protein.
--- NOTE | 2025-01-03 15:07 | P.PN ---
Subjective Progress Note Date: 01/03/25 Patient is a 74-year-old female with past medical history significant for Crohn 's disease and ileostomy, COPD, current ongoing tobacco smoker, DVT/PE. Brought into the emergency department yesterday evening with a chief complaint of generalized weakness, dizziness, and multiple falls at home. Workup in the emergency department remarkable for severe hyponatremia, with a sodium of 110. No confusion, headache, seizures. Patient was given a normal saline 500 cc bolus, and continued on normal saline at 50 mL/h. I am seeing this patient in the emergency department, as she is going to be admitted to the intensive care unit for sodium correction and neurological monitoring. She is alert and oriented x 3. Appears euvolemic. No weight gain. No edema. No neurological manifestations. Endorses excessive free water intake, 10 to 11, 16 ounce bottles of water per day. Also, a cup of coffee and tomato juice with salt daily. Occasional beer drinking, approximately 2 to 3, 12 ounce beers 1-2 times per week. Adds, intermittent nausea and retching since . No increased output out of her ostomy. Denies any diuretic use. Denies any new medication changes. Denies any recent infections. Denies any history of known malignancies. Remaining labs including a CBC with a WBC count of 9.3, hemoglobin 14.5, platelets 173. Most recent BMP with a sodium 111, potassium 2.7, chloride 170 77, serum bicarb 25, BUN 14, creatinine 0.68, glucose 118. Calcium 9. Magnesium 1.1. Troponins less than 0.012. Normal saline is increased to 75 mL/h. Chest x-ray does not show any focal infiltrations or pulmonary nodules or masses. CT of the brain and C-spine does not show any acute intracranial process. No evidence of cervical spine fracture. Vital signs are stable. On 01/02/2025, the patient is being seen for a follow-up. Awake and alert without any mental status change or focal neurological deficit. Sodium is at 120. Potassium is at 3.6. CBC is within normal limits. The patient is on normal saline at rate of 60 cc an hour. Denies having any other new complaints. No altered mentation. Nephrology on the case regarding ongoing hyponatremia. On 01/03/2025, patient is being seen for a follow-up. The patient is doing well. No specific complaints. Remains in normal saline at rate of 60 cc an hour. Sodium levels up to 125. K is at 3.4. Bicarb is at 18. Renal function is stable with a creatinine of 0.7. The patient's white cell count is 7.4 with a hemoglobin of 11.7. No focal neurological deficits. No chest pain. She is also on salt tablets. Calm and comfortable and communicating. Objective - Vital Signs Vital signs: Vital Signs Temp 98.3 F 01/03/25 04:00 Pulse 82 01/03/25 04:00 Resp 17 01/03/25 04:00 BP 115/76 01/03/25 04:00 Pulse Ox 97 01/03/25 04:00 FiO2 Intake & Output 01/02/25 01/03/25 01/03/25 18:59 06:59 18:59 Intake Total 1544 30 Output Total 504 1450 Balance 1040 -1420 Weight 54.5 kg Intake: IV 30 Invasive Line 1 10 Invasive Line 2 10 Invasive Line 3 10 Oral 1544 Output: Urine 500 500 Stool 4 950 Other: Voiding Method Toilet Toilet # Voids 1 2 # Bowel Movements 1 - Exam GENERAL EXAM: Alert, 74-year-old female, comfortable in no apparent distress. HEAD: Normocephalic and atraumatic EYES: Normal reaction of pupils, equal size. NOSE: Clear with pink turbinates. THROAT: No erythema or exudates. NECK: No masses, no JVD. CHEST: No chest wall deformity. LUNGS: Equal air entry with no crackles, wheeze, rhonchi or dullness. On room air. No conversational dyspnea or accessory muscle use.. CVS: S1 and S2 normal with no audible murmur, regular rhythm. No extra heart sounds ABDOMEN: No hepatosplenomegaly, active bowel sounds, no guarding or rigidity. Functional ostomy SPINE: No scoliosis or deformity SKIN: No rashes CENTRAL NERVOUS SYSTEM: No focal deficits, tone is normal in all 4 extremities. EXTREMITIES: There is no peripheral edema, clubbing, or cyanosis. Peripheral pulses are intact. - Labs CBC & Chem 7: 01/03/25 06:37 01/03/25 06:37 Labs: Abnormal Lab Results - Last 24 Hours (Table) 05/16/25 05/17/25 05/17/25 Range/Units 14:17 06:37 06:37 RBC 3.40 L (4.10-5.20) 10*6/uL Hgb 11.7 L (12.0-15.0) g/dL Hct 33.2 L (37.2-46.3) % MCV 97.6 H (80.0-97.0) fL MCH 34.4 H (27.0-32.0) pg Immature Gran # 0.08 H (0.00-0.04) 10*3/uL Sodium 122 L 125 L (137-145) mmol/L Potassium 3.4 L (3.5-5.1) mmol/L Carbon Dioxide 18 L (22-30) mmol/L Total Protein 5.5 L (6.3-8.2) g/dL Albumin 3.4 L (3.5-5.0) g/dL Assessment and Plan Assessment: Severe hyponatremia, sodium 110 mmol/L on presentation, and sodium of is currently up to 125 and the patient is asymptomatic. Mental normal saline rate of 60 cc an hour Severe hypokalemia, being replaced per protocol, improved Hypomagnesemia, being replaced per protocol Polydipsia, with excessive free water intake, greater than 5 L/day Chronic obstructive pulmonary disease, stable/inactive Current ongoing tobacco smoker History of PE/DVT, not on any anticoagulation History of Crohn's disease with ileostomy, high output Plan: No neurological manifestations concerning hyponatremia the patient's sodium level is improving, currently up to 125 Hemodynamics are stable Appears euvolemic Sodium level continues to gradually improve and the patient remains on normal saline Hyponatremia is attributed to excessive water intake in the order of 5 L on a daily basis Free water restriction Nephrology on the case Patient is on room air oxygen Chest x-ray shows no acute cardiopulmonary process and the patient has chronic stable COPD the patient is a chronic smoker. Will follow
[2025-01-03] MEDS ORDERED: Acetaminophen-Codeine 300-30mg TAB PO PRN (16:06)
[2025-01-03] MEDS ORDERED: Potassium Replacement Protocol 1 EACH MISC MISCELLANE PRN (18:42)
[2025-01-03] MEDS: ENOXAPARIN 40 MG/0.4 ML SYRINGE SQ SCH (18:53)
[2025-01-03] MEDS: BUTALB/APAP/CAFF 50-325-40MG TAB PO PRN (19:03)
[2025-01-03] MEDS: POTASSIUM CHLORIDE ER 20 MEQ TAB.ER PO SCH (19:03)
[2025-01-03] MEDS: MELATONIN 3 MG TABLET PO PRN (23:21)
--- NOTE | 2025-01-04 02:00 | PN ---
PROGRESS NOTE DATE OF SERVICE: 01/03/2025 SUBJECTIVE: This is a 74-year-old woman was admitted with severe hyponatremia, also had significant output from ileostomy tube. I recommended tertiary care, Gastroenterology evaluation for further evaluation. No chest pain, no palpitation. EXAM: VITAL SIGNS: Pulse is 79, blood pressure 114/68, and respirations 16. CHEST: Clear to auscultation. CARDIOVASCULAR: S1 and S2 . ABDOMEN: Soft, mild diffuse distention. LAB: Sodium 125, potassium 3.4. Rest of the labs are noted. ASSESSMENT: 1. Severe hyponatremia, possibly dilutional. 2. Polydipsia history, possibly secondary from severe dehydration. 3. Increased output from the ileostomy. 4. Crohn disease and ileostomy history. 5. Asthma, chronic obstructive pulmonary disease. 6. History of deep vein thrombosis. 7. History of pulmonary embolism. 8. Hypokalemia, recurrent. RECOMMENDATIONS: I recommend to continue current management and treatment. Otherwise, at this time I would recommend monitoring the current medications. I would also recommend continue with Lovenox also. Further recommendations to follow. MMODL / IJN: [id number] /
[2025-01-04 08:46] LABS: Basophils # (A) 0.05 10*3/uL (0.00-0.10); Basophils % (A) 0.6 %; Eosinophils # (A) 0.16 10*3/uL (0.04-0.35); Eosinophils % (A) 1.9 %; HCT 33.5 % (37.2-46.3); HGB 11.7 g/dL (12.0-15.0); Lymphocytes # (A) 1.41 10*3/uL (0.90-5.00); Lymphocytes % (A) 16.8 %; MCH 35.3 pg (27.0-32.0); MCHC 34.9 g/dL (32.0-37.0); MCV 101.2 fL (80.0-97.0); Mean Platelet Volume 9.9 fL (9.5-12.2); Monocytes # (A) 0.73 10*3/uL (0.20-1.00); Monocytes % (A) 8.7 %; Neutrophils # (A) 5.97 10*3/uL (1.80-7.70); Platelet Count 183 10*3/uL (140-440); RBC 3.31 10*6/uL (4.10-5.20); RDW 13.8 % (11.5-14.5)
[2025-01-04 08:57] LABS: African American GFR (CKD) 90 (>60 ml/min/1.73 sqM); Anion Gap 9 mmol/L; Blood Urea Nitrogen 17 mg/dL (7-17); Carbon Dioxide 14 mmol/L (22-30); Chloride 106 mmol/L (98-107); Glucose 146 mg/dL (74-99); Non-African American GFR(CKD) 78 (>60 ml/min/1.73 sqM); Potassium 4.4 mmol/L (3.5-5.1); Sodium 129 mmol/L (137-145)
--- NOTE | 2025-01-04 12:12 | P.PN ---
Subjective Progress Note Date: 01/04/25 Patient is seen for follow-up for hyponatremia, hypovolemic and maintained on normal saline. Feeling better and tolerating more of diet. Patient is awake, comfortable, no acute distress Examination of the heart S1 and S2 Examination of the lungs bilateral breath sounds are heard Abdomen is soft nontender Examination of lower extremity shows no evidence of edema [employer] exam grossly intact Objective - Vital Signs Vital signs: Vital Signs Temp 98.1 F 01/04/25 04:00 Pulse 107 H 01/04/25 04:00 Resp 22 01/04/25 04:00 BP 122/74 01/04/25 04:00 Pulse Ox 96 01/04/25 04:00 FiO2 Intake & Output 01/03/25 01/04/25 01/04/25 18:59 06:59 18:59 Intake Total 800 130 700 Balance 800 130 700 Weight 54.4 kg Intake: IV 10 Invasive Line 3 10 Oral 800 120 700 Other: Voiding Method Toilet Toilet # Voids 2 3 1 # Bowel Movements 0 2 1 - Labs CBC & Chem 7: 01/04/25 07:47 01/04/25 07:47 Labs: Abnormal Lab Results - Last 24 Hours (Table) 01/04/25 01/04/25 Range/Units 07:47 07:47 RBC 3.31 L (4.10-5.20) 10*6/uL Hgb 11.7 L (12.0-15.0) g/dL Hct 33.5 L (37.2-46.3) % MCV 101.2 H (80.0-97.0) fL MCH 35.3 H (27.0-32.0) pg Immature Gran # 0.08 H (0.00-0.04) 10*3/uL Sodium 129 L (137-145) mmol/L Carbon Dioxide 14 L (22-30) mmol/L Glucose 146 H (74-99) mg/dL Assessment and Plan Assessment: 1. Hyponatremia, hypovolemic, slowly improving with saline. Urine osmolality 315 2. Volume depletion 3. History of Crohn's disease status post bowel resection and ileostomy 4. Hypokalemia secondary to GI fluid loss, magnesium was low and has been replaced 5. Hypomagnesemia status post replacement Plan: Continue with normal saline Repeat labs in a.m. Encouraged increased oral intake particularly protein. Clear for discharge and follow-up in office 1-2 weeks
--- NOTE | 2025-01-04 13:36 | P.PN ---
Subjective Progress Note Date: 01/04/25 Patient is a 74-year-old female with past medical history significant for Crohn 's disease and ileostomy, COPD, current ongoing tobacco smoker, DVT/PE. Brought into the emergency department yesterday evening with a chief complaint of generalized weakness, dizziness, and multiple falls at home. Workup in the emergency department remarkable for severe hyponatremia, with a sodium of 110. No confusion, headache, seizures. Patient was given a normal saline 500 cc bolus, and continued on normal saline at 50 mL/h. I am seeing this patient in the emergency department, as she is going to be admitted to the intensive care unit for sodium correction and neurological monitoring. She is alert and oriented x 3. Appears euvolemic. No weight gain. No edema. No neurological manifestations. Endorses excessive free water intake, 10 to 11, 16 ounce bottles of water per day. Also, a cup of coffee and tomato juice with salt daily. Occasional beer drinking, approximately 2 to 3, 12 ounce beers 1-2 times per week. Adds, intermittent nausea and retching since . No increased output out of her ostomy. Denies any diuretic use. Denies any new medication changes. Denies any recent infections. Denies any history of known malignancies. Remaining labs including a CBC with a WBC count of 9.3, hemoglobin 14.5, platelets 173. Most recent BMP with a sodium 111, potassium 2.7, chloride 170 77, serum bicarb 25, BUN 14, creatinine 0.68, glucose 118. Calcium 9. Magnesium 1.1. Troponins less than 0.012. Normal saline is increased to 75 mL/h. Chest x-ray does not show any focal infiltrations or pulmonary nodules or masses. CT of the brain and C-spine does not show any acute intracranial process. No evidence of cervical spine fracture. Vital signs are stable. On 01/02/2025, the patient is being seen for a follow-up. Awake and alert without any mental status change or focal neurological deficit. Sodium is at 120. Potassium is at 3.6. CBC is within normal limits. The patient is on normal saline at rate of 60 cc an hour. Denies having any other new complaints. No altered mentation. Nephrology on the case regarding ongoing hyponatremia. On 01/03/2025, patient is being seen for a follow-up. The patient is doing well. No specific complaints. Remains in normal saline at rate of 60 cc an hour. Sodium levels up to 125. K is at 3.4. Bicarb is at 18. Renal function is stable with a creatinine of 0.7. The patient's white cell count is 7.4 with a hemoglobin of 11.7. No focal neurological deficits. No chest pain. She is also on salt tablets. Calm and comfortable and communicating. On 01/04/2025, the patient has no specific complaints. Resting comfortably in bed. No altered mentation. Remains on normal saline at rate of 60 and she is also receiving salt tablets. Rest of the medications are unchanged. Electrolytes from today shows a sodium level of 129, K is at 4.4, bicarb is at 14 with a gap of 9. BUN is at 17 with a creatinine of 0.7. The white cell count is at 8.4 and the hemoglobin is 11.7. No specific complaints for now. Objective - Vital Signs Vital signs: Vital Signs Temp 98.1 F 01/04/25 04:00 Pulse 107 H 01/04/25 04:00 Resp 22 01/04/25 04:00 BP 122/74 01/04/25 04:00 Pulse Ox 96 01/04/25 04:00 FiO2 Intake & Output 01/03/25 01/04/25 01/04/25 18:59 06:59 18:59 Intake Total 800 130 700 Balance 800 130 700 Weight 54.4 kg Intake: IV 10 Invasive Line 3 10 Oral 800 120 700 Other: Voiding Method Toilet Toilet # Voids 2 3 1 # Bowel Movements 0 2 1 - Exam GENERAL EXAM: Alert, 74-year-old female, comfortable in no apparent distress. HEAD: Normocephalic and atraumatic EYES: Normal reaction of pupils, equal size. NOSE: Clear with pink turbinates. THROAT: No erythema or exudates. NECK: No masses, no JVD. CHEST: No chest wall deformity. LUNGS: Equal air entry with no crackles, wheeze, rhonchi or dullness. On room air. No conversational dyspnea or accessory muscle use.. CVS: S1 and S2 normal with no audible murmur, regular rhythm. No extra heart sounds ABDOMEN: No hepatosplenomegaly, active bowel sounds, no guarding or rigidity. Functional ostomy SPINE: No scoliosis or deformity SKIN: No rashes CENTRAL NERVOUS SYSTEM: No focal deficits, tone is normal in all 4 extremities. EXTREMITIES: There is no peripheral edema, clubbing, or cyanosis. Peripheral pulses are intact. - Labs CBC & Chem 7: 01/04/25 07:47 01/04/25 07:47 Labs: Abnormal Lab Results - Last 24 Hours (Table) 01/04/25 01/04/25 Range/Units 07:47 07:47 RBC 3.31 L (4.10-5.20) 10*6/uL Hgb 11.7 L (12.0-15.0) g/dL Hct 33.5 L (37.2-46.3) % MCV 101.2 H (80.0-97.0) fL MCH 35.3 H (27.0-32.0) pg Immature Gran # 0.08 H (0.00-0.04) 10*3/uL Sodium 129 L (137-145) mmol/L Carbon Dioxide 14 L (22-30) mmol/L Glucose 146 H (74-99) mg/dL Assessment and Plan Assessment: Severe hyponatremia, sodium 110 mmol/L on presentation, and sodium of is currently up to 129 without any neurologic deficits Severe hypokalemia, being replaced per protocol, improved Hypomagnesemia, being replaced per protocol Non anion gap metabolic acidosis secondary to saline infusion Polydipsia, with excessive free water intake, greater than 5 L/day Chronic obstructive pulmonary disease, stable/inactive Current ongoing tobacco smoker History of PE/DVT, not on any anticoagulation History of Crohn's disease with ileostomy, high output Plan: No neurological manifestations concerning hyponatremia the patient's sodium level is improving, currently up to 129 Hemodynamics are stable Appears euvolemic Recommend stopping normal saline infusion and oral bicarb supplements Free water restriction Nephrology on the case Patient is on room air oxygen Chest x-ray shows no acute cardiopulmonary process and the patient has chronic stable COPD the patient is a chronic smoker. No active pulmonary or critical care issues at this point.
[2025-01-04] MEDS ORDERED: IPRATROPIUM-ALBUTEROL 3 ML NEB INHALATION PRN (15:19)
[2025-01-04] MEDS: SODIUM BICARBONATE TAB 650 MG TAB PO SCH (15:24)
[2025-01-04] MEDS: SYMBICORT 160-4.5 MCG INHALER INHALATION SCH (16:01)
[2025-01-04 18:52] LABS: Influenza A Not Detected (Not Detectd); Influenza B Not Detected (Not Detectd); RSV Not Detected (Not Detectd)
[2025-01-04] MEDS: guaiFENesin 600 MG TABLET.ER PO SCH (21:06)
[2025-01-04] MEDS: guaiFENesin SYRUP 100MG/5ML 200 MG/10 ML CUP PO PRN (21:06)
[2025-01-04] MEDS: IPRATROPIUM-ALBUTEROL 3 ML NEB INHALATION SCH (21:21)
--- NOTE | 2025-01-05 05:57 | PN ---
PROGRESS NOTE DATE OF SERVICE: 01/04/2025 SUBJECTIVE: This is a 74-year-old woman who was admitted with severe hyponatremia, also complaining of significant cough, also the patient has significant polydipsia. The previous chest x-ray which I reviewed personally showed no acute abnormality. PAST MEDICAL HISTORY: Reviewed. REVIEW OF SYSTEMS: Fourteen-point review of systems negative except as mentioned earlier. CURRENT MEDICATIONS: Reviewed. PHYSICAL EXAMINATION: VITAL SIGNS: Pulse is 72, blood pressure 105/65, respirations 16. HEENT: Conjunctivae normal. Oral mucosa dry. NECK: No jugular venous distention. CARDIOVASCULAR: S1, S2. RESPIRATORY: Bilateral scattered rhonchi. ABDOMEN: Soft. LEGS: No edema. No swelling. NERVOUS SYSTEM: Nonfocal. LABORATORY DATA: Sodium 129. ASSESSMENT: 1. Severe hyponatremia, possibly dilutional. 2. Polydipsia history possibly secondary from severe dehydration. 3. Increased output from the ileostomy. 4. History of Crohn disease and ileostomy. 5. Asthma, chronic obstructive pulmonary disease. 6. Deep vein thrombosis. 7. History of pulmonary embolism. 8. Hypokalemia, recurrent. RECOMMENDATIONS: Recommended to continue current management and treatment. Otherwise, at this time, I recommend to continue with bronchodilators, . Viral testing was negative previously. MMODL / IJN: [id number] / [facility]
[2025-01-05 06:37] LABS: Basophils # (A) 0.03 10*3/uL (0.00-0.10); Basophils % (A) 0.4 %; Eosinophils # (A) 0.18 10*3/uL (0.04-0.35); Eosinophils % (A) 2.6 %; HCT 29.8 % (37.2-46.3); HGB 10.3 g/dL (12.0-15.0); Lymphocytes # (A) 1.39 10*3/uL (0.90-5.00); Lymphocytes % (A) 19.9 %; MCH 34.9 pg (27.0-32.0); MCHC 34.6 g/dL (32.0-37.0); Mean Platelet Volume 9.8 fL (9.5-12.2); Monocytes # (A) 1.04 10*3/uL (0.20-1.00); Monocytes % (A) 14.9 %; Neutrophils # (A) 4.28 10*3/uL (1.80-7.70); Neutrophils % (A) 61.3 %; Platelet Count 147 10*3/uL (140-440); RBC 2.95 10*6/uL (4.10-5.20); RDW 14.1 % (11.5-14.5); WBC 6.98 10*3/uL (4.50-10.00)
[2025-01-05 06:57] LABS: African American GFR (CKD) >90 (>60 ml/min/1.73 sqM); Anion Gap 7 mmol/L; Blood Urea Nitrogen 14 mg/dL (7-17); Calcium 8.9 mg/dL (8.4-10.2); Carbon Dioxide 15 mmol/L (22-30); Chloride 107 mmol/L (98-107); Glucose 81 mg/dL (74-99); Non-African American GFR(CKD) 87 (>60 ml/min/1.73 sqM); Potassium 3.9 mmol/L (3.5-5.1); Sodium 129 mmol/L (137-145)
[2025-01-05 09:30] VITALS: RESP 18; TEMP 98
[2025-01-05 12:41] VITALS: BP 114/70
--- NOTE | 2025-01-05 12:41 | P.PN ---
Subjective Progress Note Date: 01/05/25 Patient seen in follow-up for hypovolemic, hyponatremia was maintained on normal saline. No new complaints, tolerating oral intake. Objective - Vital Signs Vital signs: Vital Signs Temp 98.3 F 01/05/25 04:00 Pulse 92 01/05/25 00:00 Resp 16 01/05/25 04:00 BP 101/63 01/05/25 04:00 Pulse Ox 94 L 01/05/25 04:00 FiO2 Intake & Output 01/04/25 01/05/25 01/05/25 18:59 06:59 18:59 Intake Total 1180 820 Balance 1180 820 Weight 54.3 kg Intake: Intake, IV Titration 720 Amount Sodium Chloride 0.9% 1, 720 000 ml @ 60 mls/hr IV . [id number] [facility] Rx#:[id number] Oral 1180 100 Other: Voiding Method Toilet # Voids 2 4 # Bowel Movements 1 - Exam Patient is awake, comfortable, no acute distress Examination of the heart S1 and S2 Examination of the lungs bilateral breath sounds are heard Abdomen is soft non-tender Examination of lower extremity shows no evidence of edema [employer] exam grossly intact - Labs CBC & Chem 7: 01/05/25 06:17 01/05/25 06:17 Labs: Abnormal Lab Results - Last 24 Hours (Table) 01/04/25 01/04/25 01/05/25 Range/Units 07:47 07:47 06:17 RBC 3.31 L 2.95 L (4.10-5.20) 10*6/uL Hgb 11.7 L 10.3 L (12.0-15.0) g/dL Hct 33.5 L 29.8 L (37.2-46.3) % MCV 101.2 H 101.0 H (80.0-97.0) fL MCH 35.3 H 34.9 H (27.0-32.0) pg Immature Gran # 0.08 H 0.06 H (0.00-0.04) 10*3/uL Monocytes # 1.04 H (0.20-1.00) 10*3/uL Sodium 129 L (137-145) mmol/L Carbon Dioxide 14 L (22-30) mmol/L Glucose 146 H (74-99) mg/dL 05/19/25 Range/Units 06:17 RBC (4.10-5.20) 10*6/uL Hgb (12.0-15.0) g/dL Hct (37.2-46.3) % MCV (80.0-97.0) fL MCH (27.0-32.0) pg Immature Gran # (0.00-0.04) 10*3/uL Monocytes # (0.20-1.00) 10*3/uL Sodium 129 L (137-145) mmol/L Carbon Dioxide 15 L (22-30) mmol/L Glucose (74-99) mg/dL Assessment and Plan Assessment: 1. Hypovolemic hyponatremia, stable, Sodium 129 2. Volume depletion, improving 3. History of Crohn's disease, status post bowel resection & ileostomy with high output 4. Hypomagnesemia, resolved Plan: Discontinued IV fluids Continue sodium tabs twice daily Repeat labs in a.m. Encourage oral intake, specifically protein intake Continue Ensure supplementation Recommend repeat BMP 2 to 3 days post-discharge Follow-up outpatient in 2 weeks I have seen and examined the patient with resident and agree with A&P as written.
[2025-01-05 13:06] VITALS: PULSE 86
--- NOTE | 2025-01-08 23:57 | P.DS ---
Providers Date of admission: 12/31/24 19:52 Expected date of discharge: 01/05/25 Attending physician: Estelle Etienne Consults: 12/31/24 18:35 Consult Physician Routine Consulting Provider: Maria C Whitley Consult Reason/Comments: hyponatremia Do you want consulting provider notified?: Yes 12/31/24 19:50 Consult Physician Routine Consulting Provider: Andra Mendez Consult Reason/Comments: icu patient Do you want consulting provider notified?: Already Contacted Primary care physician: Dannielle Alcazar Hospital Course: Final diagnosis Severe hyponatremia, possibly delusional, improved Polydipsia possibly secondary from severe dehydration Increased output from the ileostomy History of Crohn's disease and ileostomy Asthma/chronic obstructive pulmonary disease, not in exacerbation DVT history History of PE Recurrent hypokalemia GI prophylaxis DVT prophylaxis Discharge disposition Patient is being discharged in a stable condition with guarded prognosis to home. Patient will follow-up with Dr. Alcazar in the outpatient setting upon discharge. Patient is to continue with current medications and close outpatient follow-up as scheduled. Repeat labs in 2 to 3 days. Total time taken is greater than 35 minutes. Hospital course This is a 74-year-old female who was recently admitted with severe electrolyte abnormalities being closely monitored including severe hyponatremia that has improved. Patient with significant history including ostomy that has large output patient is at high risk for dehydration. Patient to follow-up with GI outpatient. Patient has been instructed to follow-up with primary care provider this week. Please refer to other consultation notes for further HPI. Currently no reports of chest pain, shortness of breath, or palpitations. Patient is afebrile. No reports of nausea or vomiting and patient is tolerating diet. Patient will be discharged home today. Guarded prognosis and high risk for readmissions given significant comorbidities Physical exam: Gen: This is a awake, alert and oriented, thin built, elderly appearing HEENT: Head is atraumatic, normocephalic. Pupils equal, round. Sclerae is anicteric. NECK: Supple. No JVD. No lymphadenopathy. No thyromegaly. LUNGS: Diminished breath sounds bilaterally otherwise clear to auscultation. No wheezes or rhonchi. No intercostal retractions. HEART: Regular rate and rhythm. No murmur. ABDOMEN: Soft. Bowel sounds are present. No masses. No tenderness. To be noted with gas EXTREMITIES: No pedal edema. No calf tenderness. NEUROLOGICAL: Patient is awake, alert and oriented x3. Cranial nerves 2 through 12 are grossly intact. Please refer to medication reconciliation sheet for a list of medications. The impression and plan of care has been dictated by Chely Cancino, Nurse Practitioner as directed. Dr. Lowell MD I have performed a history and examination and MDM of this patient, discussed the same with the dictator, and agree with the dictator's assessment and plan as written ,documented as a scribe. Based on total visit time, I have performed more than 50% of the visit. Patient Condition at Discharge: Fair Plan - Discharge Summary Discharge Rx Participant: No New Discharge Prescriptions: New Ipratropium-Albuterol Nebulize [Duoneb 0.5 mg-3 mg/3 ml Soln] 3 ml INHALATION RT-TID 30 Days #100 each Ipratropium-Albuterol Nebulize [Duoneb 0.5 mg-3 mg/3 ml Soln] 3 ml INHALATION RT-TID PRN each PRN Reason: Shortness Of Breath Or Wheezing guaiFENesin [Mucinex] 600 mg PO Q12HR 10 Days #20 tab guaiFENesin SYRUP 100MG/5ML [Robitussin] 200 mg PO Q6HR PRN #240 ml PRN Reason: Cough Sodium Bicarbonate Tab 650 mg PO BID #60 tab Sodium Chloride Tab 1 gm PO BID #60 tab Budesonide-Formot 160-4.5 Mcg [Symbicort 160-4.5 Mcg Inhaler] 2 puff INHALATION RT-BID 30 Days #1 each Acetaminophen Tab [Tylenol] 650 mg PO Q6HR PRN tab PRN Reason: Mild Pain Or Fever > 100.5 Continue Ergocalciferol (Vitamin D2) [Drisdol (50,000 Iu)] 1,250 mcg PO SA Cyanocobalamin [Vitamin B-12 Injection] 1,000 mcg SQ Q30D Discharge Medication List Ergocalciferol (Vitamin D2) [Drisdol (50,000 Iu)] 1,250 mcg PO SA 07/31/23 [History] Cyanocobalamin [Vitamin B-12 Injection] 1,000 mcg SQ Q30D 02/13/24 [History] Acetaminophen Tab [Tylenol] 650 mg PO Q6HR PRN tab 01/05/25 [Rx] Budesonide-Formot 160-4.5 Mcg [Symbicort 160-4.5 Mcg Inhaler] 2 puff INHALATION RT-BID 30 Days #1 each 01/05/25 [Rx] Ipratropium-Albuterol Nebulize [Duoneb 0.5 mg-3 mg/3 ml Soln] 3 ml INHALATION RT-TID 30 Days #100 each 01/05/25 [Rx] Ipratropium-Albuterol Nebulize [Duoneb 0.5 mg-3 mg/3 ml Soln] 3 ml INHALATION RT-TID PRN each 01/05/25 [Rx] Sodium Bicarbonate Tab 650 mg PO BID #60 tab 01/05/25 [Rx] Sodium Chloride Tab 1 gm PO BID #60 tab 01/05/25 [Rx] guaiFENesin SYRUP 100MG/5ML [Robitussin] 200 mg PO Q6HR PRN #240 ml 01/05/25 [Rx] guaiFENesin [Mucinex] 600 mg PO Q12HR 10 Days #20 tab 01/05/25 [Rx] Follow up Appointment(s)/Referral(s): Dannielle Alcazar DO [Primary Care Provider] - 1-2 days Tanner Varghese DO [STAFF PHYSICIAN] - 1 Week Ambulatory/Diagnostic Orders: Basic Metabolic Panel [LAB.AMB] Location: None Selected Magnesium [LAB.AMB] Location: None Selected Patient Instructions/Handouts: Hyponatremia (DC) Activity/Diet/Wound Care/Special Instructions: Activity limited until follow-up Follow-up with primary care provider on discharge Follow-up with nephrology outpatient Repeat labs in the next few days Follow-up with your primary care provider and discuss possible following up at [facility] for Crohn's specialist Discharge Disposition: HOME SELF-CARE
[2025-01-09] MEDS ORDERED: CYANOCOBALAMIN 1,000 MCG/ML 1 ML VIAL SQ SCH (09:00)
== END 2025-01-05 16:45 | disposition home or self-care (01) | DRG 641 ==
LOC: EC 16:28 → 2SICU 19:52 → 3SCARD 01-01 14:11
PROVIDERS: ADMIT Hospitalist; ATTEND Hospitalist
DX: E87.1 Hypo-osmolality and hyponatremia (principal); E87.20 Acidosis, unspecified; J44.89 Other specified chronic obstructive pulmonary disease; K50.90 Crohn's disease, unspecified, without complications; E86.1 Hypovolemia; R29.6 Repeated falls; F17.200 Nicotine dependence, unspecified, uncomplicated; E87.6 Hypokalemia; E83.42 Hypomagnesemia; R63.1 Polydipsia; Z79.82 Long term (current) use of aspirin; Z88.5 Allergy status to narcotic agent; Z88.0 Allergy status to penicillin; Z86.718 Personal history of other venous thrombosis and embolism; Z86.711 Personal history of pulmonary embolism; Z90.49 Acquired absence of other specified parts of digestive tract; Z90.710 Acquired absence of both cervix and uterus; Z96.652 Presence of left artificial knee joint
CPT/HCPCS: 36415; 51798; 70450; 71045; 72125; 72170; 80048; 80053; 81001; 83605; 83735; 83930; 83935; 84132; 84295; 84300; 84443; 84484; 85025; 85610; 85652; 85730; 86140; 87636; 93005; 94640; 96361; 96365; 96366; 96367; 96375; 96376; 99291

== ENCOUNTER → 2025-02-09 | Outpatient (CLI) | payer MEDICARE, BC ==
--- NOTE | 2025-02-09 10:26 | CTL ---
EXAMINATION TYPE: CT Low Dose Lung DATE OF EXAM: 02/09/2025 8:59 AM COMPARISON: 02/09/2022 CLINICAL INDICATION: Female, 74 years old with history of Z12.2 ENCNTR SCREEN FOR MALIGNANT NEOPLASM OF RESP, SMOKER, SMOKES 0.75 PACKS A DAY FOR 32 YRS, History of tobacco use. TECHNIQUE: Low dose computed tomography scan was performed through the chest at 1 mm thick sections a nd reconstructed images in multiple planes at 1 mm and [address] DLP: 54.4 mGycm, CT CTDI: 1.5 mGy, Automated exposure control for dose reduction was used. CT DIAGNOSTIC QUALITY: Satisfactory FINDINGS: The heart is normal size without pericardial effusion. Mild proximal LAD coronary artery calcificatio ns are present. Aorta normal caliber with mild atherosclerotic arch calcifications and conventional arch vessel branc lili anatomy. No thoracic lymphadenopathy by CT size criteria. Mild emphysematous change. Subpleural reticular change at the lung bases with mild diffuse bronchial wall thickening. No consolidation or pleural effusion. Tiny 3 mm lateral left lower lobe pulmonary nodule, axial image 213. 6 mm medial left lower lobe pulmonary nodule, axial image 126 not well seen previously. Minimal patchy density lateral right upper lobe, axial image 144 and posterior left lower lobe, axial image 205. Visualized upper abdomen shows incidental 1.2 cm splenic artery aneurysm, not significantly changed f rom 2021. Punctate calcification left liver lobe is unchanged. Bones: ACDF hardware. Mild to moderate degenerative disc disease mid thoracic spine. IMPRESSION: 1. LungRADS Category 4A (suspicious, 5-15% chance of malignancy); a 6 mm medial left lower lobe pulmo nary nodule not well seen previously. 2. COPD with mild emphysema and scattered basilar interstitial fibrosis. A couple small patchy foci lateral right upper lobe and posterior left lower lobe could represent small infectious/inflammatory foci and can be reassessed at follow-up. 3. Incidental 1.2 cm splenic artery aneurysm, not significantly changed from 2021. CT LUNG RAD AND CT CHEST RECOMMENDATION: Lung-Rad 4A Suspicious: Follow-up 3 month LDCT or PET/CT may be used when there is a > 8 mm solid component. Also, recommend smoking cessation. S Modifier (other clinically significant findings): None [facility], Workstation: [id number], 02/09/2025 10:23 AM
[2025-02-09 15:18] LABS: HCT 46.6 % (37.2-46.3); HGB 16.3 g/dL (12.0-15.0); MCH 33.9 pg (27.0-32.0); MCV 96.9 FL (80.0-97.0); Mean Platelet Volume 10.4 FL (9.5-12.2); NRBC Per 100 WBC 0 X 10*3/uL (0.00-0.01); Platelet Count 300 X 10*3/uL (140-440); RBC 4.81 X 10*6/uL (4.10-5.20); RDW 12.9 % (11.5-14.5); WBC 14.26 X 10*3/uL (4.50-10.00)
[2025-02-09 15:19] LABS: ALT 28 U/L (8-44); AST 31 U/L (13-35); Albumin 4.4 g/dL (3.8-4.9); Albumin/Globulin Ratio 1.63 Ratio (1.60-3.17); Alkaline Phosphatase 106 U/L (41-126); Blood Urea Nitrogen 24.2 mg/dL (9.0-27.0); Calcium 10.5 mg/dL (8.7-10.3); Chloride 98 mmol/L (96-109); Globulin 2.7 g/dL (1.6-3.3); Glucose 121 mg/dL (70-110); Potassium 3.8 mmol/L (3.5-5.5); Sodium 134 mmol/L (135-145); Total Bilirubin 0.5 mg/dL (0.3-1.2); Total Protein 7.1 g/dL (6.2-8.2)
== END | disposition home or self-care (01) ==
LOC: RADCTMAIN 08:37
PROVIDERS: ATTEND Family Medicine
DX: Z12.2 Encounter for screening for malignant neoplasm of respiratory organs (principal); F17.210 Nicotine dependence, cigarettes, uncomplicated; J43.9 Emphysema, unspecified; J84.10 Pulmonary fibrosis, unspecified; I72.8 Aneurysm of other specified arteries; R91.1 Solitary pulmonary nodule; E53.8 Deficiency of other specified B group vitamins; E87.1 Hypo-osmolality and hyponatremia; K31.84 Gastroparesis; E44.0 Moderate protein-calorie malnutrition; R11.0 Nausea
CPT/HCPCS: 71271; 80053; 85027